=== PATIENT | male | born 1960 | race African-American/Black ===

== ENCOUNTER 2016-04-28 19:38 | Inpatient (IN) | payer MEDICAID ==
[~2016-04-28] VITALS: Ht 177.8 cm; Wt 99.8 kg
[~2016-04-28 19:38] MED LIST: ASPIRIN-LOW81 MG ORAL; BACITRACIN1 APPLIC TOPIC; BENADRYL25 MG ORAL; BISACODYL5 MG ORAL; CALCIUM ACETAT667 M1 PO; CALCIUM ACETAT667 MG PO; CARVEDILOL25 MG ORAL; CEPHALEXIN500 MG ORAL; CLONIDINE 0.2M0.2 MG GT; CLONIDINE HCL0.2 MG PO; FAMOTIDINE20 MG ORAL; GABAPENTIN100 MG ORAL; HEPARIN SO5000 UNIT6 IJ; KEFLEX500 MG ORAL; LOSARTAN POTASS50 MG ORAL; METHADONE HCL5 MG PO; NIFEDIPINE ER60 M2 ORAL; NKM; NON-ASPIRIN PA325 MG PO; NORCO 5-325 TA1 EACH ORAL; RENA-VITE TABL0.8 M1 PO; SERTRALINE HCL25 MG ORAL; SILVER SULFADI400 GM TP; TUMS500 MG ORAL; TYLENOL650 MG/20. ORAL; ZOFRAN4 MG ORAL; ZOLPIDEM TARTRAT5 MG ORAL
[2016-04-28] MEDS ORDERED: Norco 5mg/325mg tab ORAL ONE ×2 (20:15→20:45)
[2016-04-28 20:44] VITALS: BP 134/73
[2016-04-28 20:46] LABS: BASOPHILS % (AUTO) 2.1 % (0.0-2.0); EOSINOPHILS % (AUTO) 2.6 % (0.0-3.0); LYMPHOCYTES % (AUTO) 7.8 % (20.0-45.0); MEAN CORPUSCULAR HEMOGLOBIN 31.3 PG (27.0-31.0); MEAN CORPUSCULAR HGB CONC 31.6 G/DL (32.0-36.0); MEAN CORPUSCULAR VOLUME 99 FL (80-99); MEAN PLATELET VOLUME 5.8 FL (6.5-10.1); MONOCYTES % (AUTO) 14.3 % (1.0-10.0); NEUTROPHILS % (AUTO) 73.1 % (45.0-75.0); PLATELET COUNT 284 K/UL (150-450); RED BLOOD COUNT 3.41 M/UL (4.70-6.10); RED CELL DISTRIBUTION WIDTH 16.5 % (11.6-14.8); WHITE BLOOD COUNT 13.1 K/UL (4.8-10.8)
[2016-04-28] MEDS ORDERED: IBUPROFEN600 MG ORAL (21:00)
[2016-04-28] MEDS ORDERED: HYDROCODON-ACE1 EA13 ORAL (21:01)
[2016-04-28 21:03] LABS: TROPONIN I < 0.30 ng/mL (<=0.30)
[2016-04-28] MEDS ORDERED: ROBITUSSIN COU118 M4 PO (21:03)
[2016-04-28 21:04] LABS: PROTHROMBIN TIME 10.6 SEC (9.30-11.50)
[2016-04-28] MEDS ORDERED: VITAMIN C500 M1 ORAL (21:04)
[2016-04-28] MEDS ORDERED: ZINC50 M1 ORAL (21:05)
[2016-04-28 21:06] LABS: ALBUMIN/GLOBULIN RATIO 1.1 (1.0-2.7); CALCIUM 9.6 mg/dL (8.6-10.2); CREATININE 12.5 mg/dL (0.7-1.2); GLOMERULAR FILTRATION RATE 5.1 mL/min (>60); MAGNESIUM 2.9 mg/dL (1.7-2.5); PHOSPHORUS 6.2 mg/dL (2.5-4.8); POTASSIUM 5.3 mEQ/L (3.4-4.9); TOTAL PROTEIN 8.1 g/dL (6.6-8.7)
[2016-04-28] MEDS ORDERED: Sodium Polystyrene Sulfonate 15gm Powder ORAL ONE (21:30)
[2016-04-28 22:08] VITALS: BP 108/67
[2016-04-28] MEDS ORDERED: Albuterol ud Inhalation HHN ONE (22:45)
[2016-04-28] MEDS ORDERED: cefTRIAXone 1 GM in NS 55 ML IVPB ONE (23:00)
--- NOTE | 2016-04-28 23:04 | Emergency Room Report ---
History of Present Illness General Chief Complaint: Edema Source: Patient, EMS Present Illness HPI Patient is a 55-year-old male presented after increased leg pain and swelling. The patient prior history of end-stage renal disease patient was brought in from long-term. Patient was noted to have increased pain to his legs. Patient had history of chronic pain and had been taking methadone as well as [place] for pain patient had been due for dialysis. Patient denies shortness of breath. The patient is a long-term resident is followed by Dr. ireland Allergies: Coded Allergies: No Known Allergies (Unverified , 08/31/15) Patient History Past Medical History: see triage record Reviewed Nursing Documentation: PMH: Agreed, PSxH: Agreed Nursing Documentation-PMH Hx Cardiac Problems: Yes Hx Hypertension: Yes Hx Cancer: No Hx Gastrointestinal Problems: No Hx Dialysis: Yes - M, W, F Hx Neurological Problems: No Review of Systems All Other Systems: negative except mentioned in HPI Physical Exam Vital Signs Date Time Temp Pulse Resp B/P Pulse Ox O2 Delivery O2 Flow Rate FiO2 04/28/16 19:45 98.1 86 16 118/80 96 Room Air General Appearance: mild distress, obese, Chronically Ill Head: normocephalic Eyes: bilateral eye PERRL ENT: no angioedema, normal voice Neck: full range of motion, supple Respiratory: no respiratory distress, no retraction, rhonchi Cardiovascular #1: no JVD, edema Gastrointestinal: non tender, soft Musculoskeletal: normal inspection, decreased range of motion Neurologic: alert, oriented x3, responsive, motor weakness - bilateral Psychiatric: normal inspection, judgement/insight normal Skin: other - swelling Medical Decision Making Diagnostic Impression: Primary Impression: Hyperkalemia Additional Impression: ESRD (end stage renal disease) on dialysis ER Course Patient presented for extremity pain. Differential diagnosis included but was not limited to fracture, contusion, renal stone, vascular insufficiency, aortic aneurysm, cellulitis.Because of complexity of patient's case laboratory testing and imaging studies were ordered. a chest x-ray one view interpreted by me showed mild cardiomegaly without evident infiltrate. Laboratory testing was notable for elevated potassium as well as elevated white blood count consistent with some infection. Patient was given IV antibiotics. The patient was given Kayexalate. EKG interpreted by showed normal sinus rhythm with a rate of [address] or T wave changes. Dr. Ireland was contacted for inpatient management due to complexity of medical condition. Labs Test 04/28/16 20:30 White Blood Count 13.1 K/UL (4.8-10.8) Red Blood Count 3.41 M/UL (4.70-6.10) Hemoglobin 10.7 G/DL (14.2-18.0) Hematocrit 33.8 % (42.0-52.0) Mean Corpuscular Volume 99 FL (80-99) Mean Corpuscular Hemoglobin 31.3 PG (27.0-31.0) Mean Corpuscular Hemoglobin Concent 31.6 G/DL (32.0-36.0) Red Cell Distribution Width 16.5 % (11.6-14.8) Platelet Count 284 K/UL (150-450) Mean Platelet Volume 5.8 FL (6.5-10.1) Neutrophils (%) (Auto) 73.1 % (45.0-75.0) Lymphocytes (%) (Auto) 7.8 % (20.0-45.0) Monocytes (%) (Auto) 14.3 % (1.0-10.0) Eosinophils (%) (Auto) 2.6 % (0.0-3.0) Basophils (%) (Auto) 2.1 % (0.0-2.0) Prothrombin Time 10.6 SEC (9.30-11.50) Prothromb Time International Ratio 1.0 (0.9-1.1) Activated Partial Thromboplast Time 35 SEC (23-33) Sodium Level 134 mEQ/L (135-145) Potassium Level 5.3 mEQ/L (3.4-4.9) Chloride Level 91 mEQ/L (98-107) Carbon Dioxide Level 21 mEQ/L (20-30) Anion Gap 22 (5-15) Blood Urea Nitrogen 73 mg/dL (7-23) Creatinine 12.5 mg/dL (0.7-1.2) Estimat Glomerular Filtration Rate 5.1 mL/min (>60) Glucose Level 113 mg/dL (74-106) Calcium Level 9.6 mg/dL (8.6-10.2) Phosphorus Level 6.2 mg/dL (2.5-4.8) Magnesium Level 2.9 mg/dL (1.7-2.5) Total Bilirubin 0.3 mg/dL (0.0-1.2) Aspartate Amino Transf (AST/SGOT) 13 U/L (5-40) Alanine Aminotransferase (ALT/SGPT) 7 U/L (3-41) Alkaline Phosphatase 159 U/L (40-129) Troponin I < 0.30 ng/mL (<=0.30) Total Protein 8.1 g/dL (6.6-8.7) Albumin 4.4 g/dL (3.5-5.2) Globulin 3.7 g/dL Albumin/Globulin Ratio 1.1 (1.0-2.7) Last Vital Signs Date Time Temp Pulse Resp B/P Pulse Ox O2 Delivery O2 Flow Rate FiO2 04/28/16 22:08 78 16 108/67 94 Room Air 04/28/16 21:46 98.1 Status: improved Disposition: ADMITTED INPATIENT Condition: Serious Referrals: NOT CHOSEN IPA/,REFERRING (PCP) Rudi Phillips Apr 28, 2016 23:04
[2016-04-28] MEDS ORDERED: LORazepam Inj 2mg/ml 1ml IV PRN (23:15)
[2016-04-28] MEDS ORDERED: Morphine Sulfate 2mg/ml Inj IVP PRN (23:15)
[2016-04-28] MEDS ORDERED: Mylanta II UD 30ml ORAL PRN ×2 (23:15→23:30)
[2016-04-28] MEDS ORDERED: Norco 10mg/325mg tab ORAL PRN (23:15)
[2016-04-28] MEDS ORDERED: cloNIDine 0.2mg Tab GT PRN (23:15)
[2016-04-28] MEDS ORDERED: Miralax 17gm pkt ORAL PRN (23:15)
[2016-04-28] MEDS ORDERED: Zolpidem 5mg tab ORAL PRN (23:15)
[2016-04-29] VITALS (7 sets, daily range): BP systolic 103–134; BP diastolic 57–75
[2016-04-29] MEDS ORDERED: Vancomycin 1gm inj IVPB ONE (02:58)
[2016-04-29] MEDS ORDERED: Vancomycin 1250mg in D5W 275ml IVPB ONE (03:00)
[2016-04-29] MEDS ORDERED: Cefepime HCl 1 GM in D5W 55 ML IV SCH (06:00)
[2016-04-29] MEDS ORDERED: Norco 10mg/325mg tab ORAL PRN (06:59)
[2016-04-29] MEDS ORDERED: Carvedilol 25mg Tab ORAL SCH (09:00)
[2016-04-29] MEDS ORDERED: Losartan 50mg tab ORAL SCH (09:00)
[2016-04-29] MEDS ORDERED: Sertraline 50mg tab ORAL SCH (09:00)
[2016-04-29] MEDS ORDERED: Heparin 5000 units/ml inj SUBQ SCH (09:00)
[2016-04-29 09:20] LABS: BASOPHILS % (AUTO) 1.1 % (0.0-2.0); EOSINOPHILS % (AUTO) 1.4 % (0.0-3.0); LYMPHOCYTES % (AUTO) 4.2 % (20.0-45.0); MEAN CORPUSCULAR HEMOGLOBIN 30.6 PG (27.0-31.0); MEAN CORPUSCULAR HGB CONC 30.9 G/DL (32.0-36.0); MEAN CORPUSCULAR VOLUME 99 FL (80-99); MEAN PLATELET VOLUME 5.2 FL (6.5-10.1); NEUTROPHILS % (AUTO) 83.2 % (45.0-75.0); PLATELET COUNT 257 K/UL (150-450); RED BLOOD COUNT 3.35 M/UL (4.70-6.10); RED CELL DISTRIBUTION WIDTH 16.3 % (11.6-14.8); WHITE BLOOD COUNT 10.1 K/UL (4.8-10.8)
--- NOTE | 2016-04-29 09:21 | Consultation ---
Consult Note Consult Note asked to eval for dialysis HPI Patient is a 55-year-old male presented after increased leg pain and swelling. The patient prior history of end-stage renal disease patient was brought in from group home. Patient was noted to have increased pain to his legs. Patient had history of chronic pain and had been taking methadone as well as [place] for pain patient had been due for dialysis. Patient denies shortness of breath. The patient is a group home resident is followed by Dr. beka Balderas Cardiac Problems: Yes Hx Hypertension: Yes Hx Cancer: No Hx Gastrointestinal Problems: No Hx Dialysis: Yes - M, W, F Patient interviewed and examined- Data reviewed- Right arm fistula- Bilateral massive leg edema- Assessment/Plan staus: ESRD on HD M W Fr HTN High K Bilateral LE edema Plan: HD with UF- Adjustr BP meds- Vascular studies LEs per orders ELSA RICHMOND Apr 29, 2016 09:21
[2016-04-29 09:35] LABS: CALCIUM 9.2 mg/dL (8.6-10.2); CHOLESTEROL/HDL RATIO 3.4 (3.3-4.4); CREATININE 13.1 mg/dL (0.7-1.2); GLOMERULAR FILTRATION RATE 4.8 mL/min (>60); POTASSIUM 5.2 mEQ/L (3.4-4.9); TOTAL PROTEIN 7.3 g/dL (6.6-8.7)
[2016-04-29 09:46] LABS: THYROID STIMULATING HORMONE 2.51 uIU/mL (0.300-4.500)
[2016-04-29 09:58] LABS: CRP QUANT 11.8 mg/dL (< 0.5); MAGNESIUM 2.8 mg/dL (1.7-2.5); PHOSPHORUS 6.8 mg/dL (2.5-4.8); URIC ACID 7.8 mg/dL (3.0-7.5)
[2016-04-29 10:11] LABS: HEMOGLOBIN A1C 5.1 % (< 6.0)
--- NOTE | 2016-04-29 11:51 | Diagnostic Imaging Report ---
Indication: SOB Technique: One view of the chest Comparison: 01/16/2016 Findings: The heart is enlarged. The lungs and pleural spaces are clear. Old healed right rib fracture deformities are again demonstrated. Findings are unchanged Impression: Cardiomegaly. No definite acute process
[2016-04-29] MEDS ORDERED: Cefepime 500mg in D5W 55ml IVPB SCH (12:00)
--- NOTE | 2016-04-29 12:34 | History and Physical ---
History of Present Illness General Date patient seen: Apr 29, 2016 Reason for Hospitalization: Edema Present Illness HPI 55-year-old male with hx of ESRF, half-way resident, presented after increased leg pain and swelling. He had increased pain to his legs. Pt was found to have hyperkalemia, was treated in ER and admitted for further work-up. Allergies: Coded Allergies: No Known Allergies (Unverified , 08/31/15) Medication History Scheduled Ascorbic Acid* (Vitamin C*), 500 MG ORAL DAILY, (Reported) Aspirin (Aspirin EC), 81 MG ORAL DAILY, (Reported) Bisacodyl* (Dulcolax*), 5 MG ORAL BID, (Reported) Calcium Acetate (Calcium Acetate), 1,334 MG PO BID, (Reported) Calcium Acetate (Calcium Acetate), 667 MG PO TID, (Reported) Carvedilol* (Carvedilol*), 25 MG ORAL EVERY 12 HOURS, (Reported) Cephalexin* (Keflex*), 500 MG ORAL EVERY 12 HOURS Clonidine Hcl (Clonidine Hcl), 0.2 MG PO Q4HR, (Reported) Famotidine (Famotidine), 20 MG ORAL BID, (Reported) Gabapentin* (Gabapentin*), 100 MG ORAL DAILY, (Reported) Losartan Potassium* (Losartan Potassium*), 100 MG ORAL DAILY, (Reported) Methadone Hcl* (Methadone*), 5 MG PO DAILY, (Reported) Methadone Hcl* (Methadone*), 5 MG PO BID, (Reported) Nifedipine* (Nifedipine Er*), 90 MG ORAL DAILY, (Reported) No Known Medications* (NKM - No Known Medications*), 0 ., (Reported) Sertraline Hcl* (Sertraline Hcl*), 50 MG ORAL DAILY, (Reported) Zinc (Zinc), 220 MG ORAL DAILY, (Reported) Scheduled PRN Acetaminophen (Acetaminophen), 650 MG ORAL Q6H PRN for Prn Headache/Temp > 101, (Reported) Clonidine HCl (Clonidine HCl), 0.2 MG GT for For High Blood Pressure, (Reported) Diphenhydramine Hcl* (Benadryl*), 50 MG ORAL Q6H PRN for Itching, (Reported) Guaifenesin/Dextromethorphan (Robitussin Cough-Chest Dm Liq), 10 ML PO EVERY 4 HOURS PRN for For Cough, (Reported) Hydrocodone Bit/Acetaminophen 10-325* (Hydrocodon-Acetaminophn 10-325*), 1 TAB ORAL Q6H PRN for Pain Scale (6-10), (Reported) Hydrocodone Bit/Acetaminophen 5-325* ([place] 5-325*), 1 TAB ORAL EVERY 8 HOURS PRN for For Pain, (Reported) Ibuprofen* (Motrin*), 600 MG ORAL Q8H PRN for For Pain, (Reported) Ondansetron (Zofran), 4 MG ORAL Q6HR PRN for Nausea & Vomiting, (Reported) Zolpidem Tartrate* (Zolpidem Tartrate*), 5 MG ORAL BEDTIME PRN for Insomnia, ( Reported) Miscellaneous Medications Acetaminophen (Non-Aspirin Pain Relief), 650 MG PO, (Reported) Silver Sulfadiazine (Silver Sulfadiazine), 400 GM TP, (Reported) Patient History Healthcare decision maker Resuscitation status Full Code Advanced Directive on File Past Medical/Surgical History Past Medical/Surgical History: (1) ESRD (end stage renal disease) on dialysis (2) DVT (deep venous thrombosis) Review of Systems Constitutional: Reports: no symptoms Physical Exam General Appearance: WD/WN Lines, tubes and drains: peripheral HEENT: normocephalic, atraumatic Respiratory/Chest: chest wall non-tender, lungs clear Breasts: no masses Cardiovascular/Chest: normal peripheral pulses Abdomen: normal bowel sounds, non tender Genitourinary/Rectal: normal genital exam Extremities: moderate edema, pitting 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 Lymphatic: anterior cervical, posterior cervical (R) Musculoskeletal: normal muscle bulk Last 24 Hour Vital Signs Date Time Temp Pulse Resp B/P Pulse Ox O2 Delivery O2 Flow Rate FiO2 04/29/16 11:25 96.8 99 20 116/70 91 Room Air 04/29/16 09:23 89 134/75 04/29/16 09:23 134/75 04/29/16 09:22 89 134/75 04/29/16 08:01 96.9 89 20 134/75 92 Room Air 04/29/16 08:00 88 04/29/16 04:40 97.7 88 16 132/67 95 Room Air 04/29/16 04:27 98.1 80 13 122/69 100 Room Air 04/29/16 04:14 98.1 80 13 122/69 100 Room Air 04/29/16 02:17 98.1 76 13 103/66 100 Room Air 04/28/16 23:05 Room Air 04/28/16 23:04 Room Air 04/28/16 23:04 84 16 04/28/16 22:08 78 16 108/67 94 Room Air 04/28/16 21:46 98.1 04/28/16 21:19 98.1 04/28/16 20:44 98.5 86 15 134/73 100 Room Air 04/28/16 19:55 86 16 Room Air 04/28/16 19:45 98.1 86 16 118/80 96 Room Air Intake and Output 04/28/16 04/29/16 19:00 07:00 Intake Total 380 ml Output Total 0 ml Balance 380 ml Intake Oral 50 ml IV Total 330 ml Output Urine Total 0 ml Laboratory Tests Test 04/28/16 20:30 04/29/16 09:15 White Blood Count 13.1 K/UL (4.8-10.8) H 10.1 K/UL (4.8-10.8) Red Blood Count 3.41 M/UL (4.70-6.10) L 3.35 M/UL (4.70-6.10) L Hemoglobin 10.7 G/DL (14.2-18.0) L 10.3 G/DL (14.2-18.0) L Hematocrit 33.8 % (42.0-52.0) L 33.1 % (42.0-52.0) L Mean Corpuscular Volume 99 FL (80-99) 99 FL (80-99) Mean Corpuscular Hemoglobin 31.3 PG (27.0-31.0) H 30.6 PG (27.0-31.0) Mean Corpuscular Hemoglobin Concent 31.6 G/DL (32.0-36.0) L 30.9 G/DL (32.0-36.0) L Red Cell Distribution Width 16.5 % (11.6-14.8) H 16.3 % (11.6-14.8) H Platelet Count 284 K/UL (150-450) 257 K/UL (150-450) Mean Platelet Volume 5.8 FL (6.5-10.1) L 5.2 FL (6.5-10.1) L Neutrophils (%) (Auto) 73.1 % (45.0-75.0) 83.2 % (45.0-75.0) H Lymphocytes (%) (Auto) 7.8 % (20.0-45.0) L 4.2 % (20.0-45.0) L Monocytes (%) (Auto) 14.3 % (1.0-10.0) H 10.0 % (1.0-10.0) Eosinophils (%) (Auto) 2.6 % (0.0-3.0) 1.4 % (0.0-3.0) Basophils (%) (Auto) 2.1 % (0.0-2.0) H 1.1 % (0.0-2.0) Prothrombin Time 10.6 SEC (9.30-11.50) Prothromb Time International Ratio 1.0 (0.9-1.1) Activated Partial Thromboplast Time 35 SEC (23-33) H Sodium Level 134 mEQ/L (135-145) L 133 mEQ/L (135-145) L Potassium Level 5.3 mEQ/L (3.4-4.9) H 5.2 mEQ/L (3.4-4.9) H Chloride Level 91 mEQ/L (98-107) L 90 mEQ/L (98-107) L Carbon Dioxide Level 21 mEQ/L (20-30) 19 mEQ/L (20-30) L Anion Gap 22 (5-15) H 24 (5-15) H Blood Urea Nitrogen 73 mg/dL (7-23) H 78 mg/dL (7-23) H Creatinine 12.5 mg/dL (0.7-1.2) H 13.1 mg/dL (0.7-1.2) H Estimat Glomerular Filtration Rate 5.1 mL/min (>60) 4.8 mL/min (>60) Glucose Level 113 mg/dL (74-106) H 103 mg/dL (74-106) Calcium Level 9.6 mg/dL (8.6-10.2) 9.2 mg/dL (8.6-10.2) Phosphorus Level 6.2 mg/dL (2.5-4.8) H 6.8 mg/dL (2.5-4.8) H Magnesium Level 2.9 mg/dL (1.7-2.5) H 2.8 mg/dL (1.7-2.5) H Total Bilirubin 0.3 mg/dL (0.0-1.2) 0.3 mg/dL (0.0-1.2) Aspartate Amino Transf (AST/SGOT) 13 U/L (5-40) 10 U/L (5-40) Alanine Aminotransferase (ALT/SGPT) 7 U/L (3-41) 6 U/L (3-41) Alkaline Phosphatase 159 U/L (40-129) H 144 U/L (40-129) H Troponin I < 0.30 ng/mL (<=0.30) Total Protein 8.1 g/dL (6.6-8.7) 7.3 g/dL (6.6-8.7) Albumin 4.4 g/dL (3.5-5.2) 3.8 g/dL (3.5-5.2) Globulin 3.7 g/dL 3.5 g/dL Albumin/Globulin Ratio 1.1 (1.0-2.7) 1.0 (1.0-2.7) Hemoglobin A1c 5.1 % (< 6.0) Uric Acid 7.8 mg/dL (3.0-7.5) H Gamma Glutamyl Transpeptidase 36 U/L (8-61) Total Creatine Kinase 108 U/L (38-174) C-Reactive Protein, Quantitative 11.8 mg/dL (< 0.5) H Pro-B-Type Natriuretic Peptide 7514 pg/mL (0-125) H Triglycerides Level 99 mg/dL (< 150) Cholesterol Level 144 mg/dL (< 200) LDL Cholesterol 82 mg/dL (60-99) HDL Cholesterol 42 mg/dL (> 60) Cholesterol/HDL Ratio 3.4 (3.3-4.4) Thyroid Stimulating Hormone (TSH) 2.510 uIU/mL (0.300-4.500) Height (Feet): 5 Height (Inches): 10.00 Weight (Pounds): 220 Medications Current Medications Medications (Trade) Dose Ordered Sig/Hilary Route PRN Reason Start Time Stop Time Status Last Admin Dose Admin Acetaminophen (Tylenol) 650 mg Q4H PRN ORAL fever 04/28/16 23:15 05/28/16 23:14 Acetaminophen/ Hydrocodone Bitart ([place] 10/325) 1 ea Q6H PRN ORAL Moderate Pain (Pain Scale 4-6) 04/29/16 06:59 05/05/16 23:14 Carvedilol (Coreg) 25 mg EVERY 12 HOURS ORAL 04/29/16 09:00 05/29/16 08:59 04/29/16 09:22 Cefepime HCl/ Dextrose (Maxipime/D5W) 55 ml @ 110 mls/hr Q24H IVPB 04/29/16 12:00 05/06/16 11:59 Clonidine HCl (Catapres) 0.1 mg Q4H PRN GT High Blood Pressure SBP> 160 04/29/16 13:15 05/29/16 13:14 Dextrose (Dextrose 50%) STAT PRN IV Hypoglycemia 04/28/16 23:15 05/28/16 23:14 Heparin Sodium (Porcine) (Heparin 5000 units/ml) 5,000 units EVERY 12 HOURS SUBQ 04/29/16 09:00 05/29/16 08:59 04/29/16 09:33 Lorazepam (Ativan 2mg/ml 1ml) 0.5 mg Q4H PRN IV For Anxiety 04/28/16 23:15 05/05/16 23:14 Losartan Potassium (Cozaar) 100 mg DAILY ORAL 04/29/16 09:00 05/29/16 08:59 04/29/16 09:23 Methadone HCl (Methadone HCl) 5 mg BID ORAL 04/29/16 09:00 05/06/16 08:59 04/29/16 09:24 Morphine Sulfate (Morphine Sulfate) 1 mg EVERY 4 HOURS PRN IVP Severe Pain (Pain Scale 7-10) 04/28/16 23:15 05/05/16 23:14 Nifedipine (Procardia XL) 90 mg DAILY ORAL 04/29/16 09:00 05/29/16 08:59 04/29/16 09:23 Ondansetron HCl (Zofran) 4 mg Q6H PRN IVP Nausea & Vomiting 04/28/16 23:15 05/28/16 23:14 Polyethylene Glycol (Miralax) 17 gm HSPRN PRN ORAL Constipation 04/28/16 23:15 05/28/16 23:14 Sertraline HCl (Zoloft) 50 mg DAILY ORAL 04/29/16 09:00 05/29/16 08:59 04/29/16 09:22 Vancomycin HCl 1 ea 1 ea DAILY PRN MISC Per rx protocol 04/28/16 23:15 05/28/16 23:14 Zolpidem Tartrate (Ambien) 5 mg HSPRN PRN ORAL Insomnia 04/28/16 23:15 05/28/16 23:14 Assessment/Plan Problem List: (1) Hyperkalemia ICD Codes: E87.5 - Hyperkalemia; Z99.2 - Dependence on renal dialysis SNOMED: 09984684 (2) Cellulitis ICD Codes: L03.90 - Cellulitis, unspecified SNOMED: 061849842 (3) ESRD (end stage renal disease) on dialysis ICD Codes: N18.6 - End stage renal disease; Z99.2 - Dependence on renal dialysis SNOMED: 282728708 Assessment/Plan Hd check electrolytes wound care IV antibiotics ANGELICA PARSON Apr 29, 2016 12:34
--- NOTE | 2016-04-29 14:00 | Consultation ---
Consult Note Consult Note ID CONSULT: Dict# [id number] Assessment/Plan ASSESSMENT: 55 y/o male with: // BLE weeping cellulitis - WCx pending - a/v doppler: pending // Leukocytosis, mild - resolved, afebrile // ESRD / HD with RUE AVF // Isolated ALP elevation - GGT WNL // Elevated CRP // Chronic pain syndrome, on methadone // h/o MRSA, VRE colonization // NKDA // Full Code PLAN: - continue empiric IV vancomycin, cefepime d# - f/u cultures - monitor CBC, temperatures - monitor BMP - wound care Thanks! Will follow TANYA WALSH Apr 29, 2016 14:00
--- NOTE | 2016-04-29 17:07 | Consultation ---
DATE OF CONSULTATION: 04/29/2016 INFECTIOUS DISEASE CONSULTATION REQUESTING PHYSICIAN: Jeremi Henderson M.D. REASON FOR CONSULTATION: Cellulitis. HISTORY OF PRESENT ILLNESS: This is a 55-year-old male with a history of end-stage renal disease, on dialysis and chronic pain syndrome, admitted on 04/28/2016 with bilateral lower extremity pain and swelling. There is evidence of weeping cellulitis. The wound culture is pending. Associated mild leukocytosis, now resolved and afebrile. Arterial and venous Dopplers are pending. He has been started on empiric vancomycin and cefepime and ID now consulted to assist in management. PAST MEDICAL HISTORY: 1. Hypertension. 2. Depression. 3. End-stage renal disease, on dialysis. 4. Grade 1 diastolic dysfunction. 5. Moderate aortic regurgitation. 6. Mild mitral regurgitation. 7. Mild tricuspid regurgitation. 8. Moderate pulmonary hypertension. 9. Diverticulosis. 10. Kidney stones. 11. Chronic pain syndrome on methadone. PAST SURGICAL HISTORY: Right upper extremity AV fistula. MEDICATIONS: 1. Vancomycin day #1. 2. Cefepime day #1. 3. Coreg. 4. Methadone. 5. Nifedipine. 6. Zoloft. 7. Subcutaneous heparin. ALLERGIES: No known drug allergies. SOCIAL HISTORY: The patient is a resident in a prison. FAMILY HISTORY: Noncontributory. REVIEW OF SYSTEMS: As per history of present illness. Ten systems reviewed. All pertinent positives and negatives noted. PHYSICAL EXAMINATION: GENERAL: No apparent distress. Nontoxic appearing. VITAL SIGNS: Maximum temperature 98.5 degrees, blood pressure 116/70, heart rate in the 80s, respiratory rate 20 and saturating 91% on room air. PULMONARY: Clear to auscultation bilaterally. CARDIOVASCULAR: Regular rate and rhythm. No murmurs. ABDOMEN: Bowel sounds present. Soft, nondistended, and nontender. EXTREMITIES: Bilateral lower extremity edema, erythema and warmth with serosanguineous drainage. NEUROLOGICAL: Alert and oriented x3, nonfocal. LABORATORY AND DIAGNOSTIC DATA: White blood cell count 10.1 decreased from 13.1, hemoglobin 10.3, and platelets 257,000. Sodium 133, potassium 5.2, chloride 98, bicarbonate 19, BUN 78, and creatinine 13.1. Alkaline phosphatase 144. Current CRP of 11.5. Troponin negative x1. Microbiology, on 04/29/2016, wound culture pending. Imaging, 1. On 04/28/2016, chest x-ray no acute findings. 2. On 04/29/2016, arterial and venous Doppler ultrasound pending. ASSESSMENT: 1. Bilateral lower extremity weeping cellulitis. Wound cultures pending. Doppler pending. 2. Leukocytosis, mild, now resolved and afebrile. 3. End-stage renal disease, on dialysis with a right upper extremity arteriovenous fistula. 4. Isolated alkaline phosphatase elevation with normal transaminase. 5. Elevated C-reactive protein. 6. Chronic pain syndrome, on methadone. 7. 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 8. No known drug allergies. 9. Full Code. PLAN: 1. Continue empiric IV vancomycin and cefepime day #1. 2. Follow up cultures. 3. Monitor CBC and temperatures. 4. Monitor BMP. 5. Wound care. Thank you. We will follow. Jerry Latif M.D. DR: QIANA JOB#: [id number] CC: Abel Mesa M.D. Arash Alborzi, M.D
[2016-04-29] MEDS ORDERED: LORazepam Inj 2mg/ml 1ml IV PRN (17:32)
[2016-04-29] MEDS ORDERED: Miralax 17gm pkt ORAL PRN (17:33)
[2016-04-29] MEDS ORDERED: Morphine Sulfate 2mg/ml Inj IVP PRN (17:33)
[2016-04-29] MEDS ORDERED: Zolpidem 5mg tab ORAL PRN (17:34)
[2016-04-29] MEDS: Heparin 5000 units/ml inj SUBQ SCH (21:00)
[2016-04-29] MEDS: Carvedilol 25mg Tab ORAL SCH (21:00)
[2016-04-29] MEDS: Norco 10mg/325mg tab ORAL PRN (22:48)
[2016-04-30] VITALS: BP 105/72
[2016-04-30] MEDS: DiphenhydrAMINE 50mg/ml Inj IVP PRN ×4 (00:07→21:30)
[2016-04-30 04:00] VITALS: BP 112/70
[2016-04-30] MEDS: Carvedilol 25mg Tab ORAL SCH ×2 (08:28→21:31)
[2016-04-30] MEDS: Sertraline 50mg tab ORAL SCH (08:29)
[2016-04-30 08:30] VITALS: BP 136/73
[2016-04-30] MEDS: Norco 10mg/325mg tab ORAL PRN ×3 (08:30→21:30)
[2016-04-30] MEDS: Heparin 5000 units/ml inj SUBQ SCH ×2 (08:36→21:36)
[2016-04-30] MEDS ORDERED: Losartan 50mg tab ORAL SCH (09:00)
[2016-04-30 12:00] VITALS: BP 105/70
--- NOTE | 2016-04-30 12:03 | Wound Care Consultation ---
Wound Assessment Wound Assessment #1: Wound Number: #1 Wound Present on Admission: Yes New Wound: No Status Change of Wound: No Wound Location Body Site Modif: left, lower Wound Location Body Site: leg Wound Type: scab - scattered scabs and tears Eldon Test: Does not Eldon Wound Thickness: Full Thickness Percent of Wound Black/Brown: 100 Wound Drainage Amount: None Wound Drainage Odor: None/Absent Tissue Surrounding Wound: Erythemic Wound General Appearance: Blackened - scabs Wound Assessment #2: Wound Number: #2 Wound Present on Admission: Yes New Wound: No Status Change of Wound: No Wound Location Body Site Modif: right, lower Wound Location Body Site: leg Wound Type: scab - scattered scabs and tears Eldon Test: Does not Eldon Wound Thickness: Full Thickness Wound Drainage Amount: None Wound Drainage Odor: None/Absent Tissue Surrounding Wound: Erythemic Wound General Appearance: Blackened - scabs Wound Assessment #3: Wound Number: #3 Wound Present on Admission: Yes New Wound: No Status Change of Wound: No Wound Location Body Site Modif: left, lower Wound Location Body Site: leg Wound Type: other - 1. open scattered wounds 2.cellulitis Eldon Test: Does not Eldon Wound Thickness: Full Thickness Wound Length: 11.0 Wound Width: 11.0 Wound Depth: 0.3 Percent of Wound [employer]/Red: 50 Percent of Wound Bed Yellow/Wh: 50 Wound Drainage Description: Serosanguineous Wound Drainage Odor: None/Absent Tissue Surrounding Wound: Erythemic Wound General Appearance: Reddened, Bleeding - scant, Draining Wound Assessment #4: Wound Number: #4 Wound Present on Admission: Yes New Wound: No Status Change of Wound: No Wound Location Body Site Modif: right, lower Wound Location Body Site: leg Wound Type: other - 1.Open wound, 2.Cellulitis Eldon Test: Does not Eldon Wound Thickness: Full Thickness Wound Length: 8.0 Wound Width: 8.0 Wound Depth: 0.3 Percent of Wound [employer]/Red: 50 Percent of Wound Bed Yellow/Wh: 50 Wound Drainage Description: Serosanguineous Wound Drainage Amount: Moderate Wound Drainage Odor: None/Absent Tissue Surrounding Wound: Macerated Wound General Appearance: Reddened, Draining Wound Assessment #5: Wound Number: #5 Wound Present on Admission: Yes New Wound: No Status Change of Wound: No Wound Location Body Site Modif: left, right, lower Wound Location Body Site: leg Wound Type: other - dry scaly skin Wound Drainage Amount: None Wound Drainage Odor: None/Absent Tissue Surrounding Wound: dry scaly Wound General Appearance: Open to air Wound Comment #1 Left lower extremity scattered scabs and skin tears. #2 Right lower extremity scattered scabs and skin tears. #3 Left lower extremity scattered open wounds/cellulitis. #4 Right lower medial leg open wound/cellulitis. #5 Left and Right lower extremity dry scaly skin. Recommendation. -Local wound care as ordered. -Turn and reposition. -Keep clean and dry. -Optimize nutrition. -Keep skin moisturized. -Heel protectors if needed. -Assess and notify MD if any changes of condition are noted. NICOLASA CORONADO Apr 30, 2016 12:03
[2016-04-30] MEDS: Cefepime HCl 500 MG in D5W 55 ML IVPB SCH (12:27)
--- NOTE | 2016-04-30 13:48 | General Progress Note ---
Assessment/Plan Status: stable Assessment/Plan Status: ESRD on HD M W Fr HTN High K Bilateral LE edema Plan: HD with UF- in am 28 Adjustr BP meds- Vascular studies LEs per orders Subjective ROS Limited/Unobtainable: No Constitutional: Reports: malaise Allergies: Coded Allergies: No Known Allergies (Unverified , 08/31/15) Objective Last 24 Hour Vital Signs Date Time Temp Pulse Resp B/P Pulse Ox O2 Delivery O2 Flow Rate FiO2 04/30/16 12:19 97.7 04/30/16 12:00 97.7 84 20 105/70 93 Room Air 04/30/16 09:29 97.9 04/30/16 08:30 98.2 110 19 136/73 91 Room Air 04/30/16 08:28 112/70 04/30/16 08:28 110 112/70 04/30/16 08:27 110 112/70 04/30/16 04:00 97.9 110 22 112/70 97 Room Air 04/30/16 00:00 97.8 113 22 105/72 96 Room Air 04/29/16 21:00 96 106/57 04/29/16 20:00 98.4 96 16 106/57 94 Room Air 04/29/16 16:00 99.9 88 21 108/68 95 Room Air 04/29/16 14:22 Room Air Intake and Output 04/29/16 04/30/16 19:00 07:00 Intake Total 400 ml 620 ml Output Total 6200 ml Balance -5800 ml 620 ml Intake Oral 400 ml 620 ml Output Urine Total 0 ml Hemodialysis UF 6200 ml # Bowel Movements 2 1 Laboratory Tests 04/29/16 20:00: Random Vancomycin Level 19.7 Height (Feet): 5 Height (Inches): 10.00 Weight (Pounds): 220 General Appearance: no apparent distress Respiratory/Chest: decreased breath sounds Abdomen: soft Objective other PE not changed ELSA RICHMOND Apr 30, 2016 13:48
--- NOTE | 2016-04-30 15:23 | Pulmonology Progress Note ---
Assessment/Plan Problems: (1) Hyperkalemia (2) Cellulitis (3) ESRD (end stage renal disease) on dialysis Assessment/Plan Iv antibiotics wound care check cultures f/u by renal venous doppler of legs. Subjective ROS Limited/Unobtainable: No Interval Events: c/o swelling of legs (chronic) Allergies: Coded Allergies: No Known Allergies (Unverified , 08/31/15) Objective Last 24 Hour Vital Signs Date Time Temp Pulse Resp B/P Pulse Ox O2 Delivery O2 Flow Rate FiO2 04/30/16 12:19 97.7 04/30/16 12:00 97.7 84 20 105/70 93 Room Air 04/30/16 09:29 97.9 04/30/16 08:30 98.2 110 19 136/73 91 Room Air 04/30/16 08:28 112/70 04/30/16 08:28 110 112/70 04/30/16 08:27 110 112/70 04/30/16 04:00 97.9 110 22 112/70 97 Room Air 04/30/16 00:00 97.8 113 22 105/72 96 Room Air 04/29/16 21:00 96 106/57 04/29/16 20:00 98.4 96 16 106/57 94 Room Air 04/29/16 16:00 99.9 88 21 108/68 95 Room Air Intake and Output 04/29/16 04/30/16 19:00 07:00 Intake Total 400 ml 620 ml Output Total 6200 ml Balance -5800 ml 620 ml Intake Oral 400 ml 620 ml Output Urine Total 0 ml Hemodialysis UF 6200 ml # Bowel Movements 2 1 General Appearance: WD/WN HEENT: normocephalic, atraumatic Respiratory/Chest: chest wall non-tender, lungs clear Cardiovascular: normal peripheral pulses, normal rate Abdomen: normal bowel sounds, soft, non tender Genitourinary: normal external genitalia Extremities: no cyanosis Neurologic/Psychiatric: hr manager II-XII grossly normal Microbiology Date/Time Source Procedure Growth Status 04/29/16 05:00 Wound Gram Stain - Final Resulted 04/29/16 05:00 Wound Wound Culture Pending Resulted Laboratory Tests 04/29/16 20:00: Random Vancomycin Level 19.7 Current Medications Medications (Trade) Dose Ordered Sig/Hilary Route PRN Reason Start Time Stop Time Status Last Admin Dose Admin Acetaminophen (Tylenol) 650 mg Q4H PRN ORAL fever 04/29/16 17:31 05/29/16 17:30 Acetaminophen/ Hydrocodone Bitart ([place] 10/325) 1 ea Q6H PRN ORAL Moderate Pain (Pain Scale 4-6) 04/29/16 17:32 05/06/16 17:31 04/30/16 14:36 Carvedilol (Coreg) 25 mg EVERY 12 HOURS ORAL 04/29/16 21:00 05/29/16 20:59 04/30/16 08:28 Cefepime HCl/ Dextrose (Maxipime/D5W) 55 ml @ 110 mls/hr Q24H IVPB 04/30/16 12:00 05/07/16 11:59 04/30/16 12:27 Clonidine HCl (Catapres) 0.1 mg Q4H PRN GT High Blood Pressure SBP> 160 04/29/16 17:15 05/29/16 17:14 Dextrose (Dextrose 50%) STAT PRN IV Hypoglycemia 04/29/16 17:32 05/29/16 17:31 Diphenhydramine HCl (Benadryl) 50 mg Q6H PRN IVP Itching 04/29/16 20:45 05/29/16 20:44 04/30/16 14:36 Heparin Sodium (Porcine) (Heparin 5000 units/ml) 5,000 units EVERY 12 HOURS SUBQ 04/29/16 21:00 05/29/16 20:59 04/30/16 08:36 Lorazepam (Ativan 2mg/ml 1ml) 0.5 mg Q4H PRN IV For Anxiety 04/29/16 17:32 05/06/16 17:31 Losartan Potassium (Cozaar) 50 mg DAILY ORAL 05/01/16 09:00 05/31/16 08:59 Methadone HCl (Methadone HCl) 5 mg BID ORAL 04/29/16 18:00 05/06/16 17:59 04/30/16 08:29 Morphine Sulfate (Morphine Sulfate) 1 mg Q4H PRN IVP Severe Pain (Pain Scale 7-10) 04/29/16 17:33 05/06/16 17:32 04/30/16 11:49 Nifedipine (Procardia XL) 30 mg DAILY ORAL 05/01/16 09:00 05/31/16 08:59 Ondansetron HCl (Zofran) 4 mg Q6H PRN IVP Nausea & Vomiting 04/29/16 17:33 05/29/16 17:32 Polyethylene Glycol (Miralax) 17 gm HSPRN PRN ORAL Constipation 04/29/16 17:33 05/29/16 17:32 Sertraline HCl (Zoloft) 50 mg DAILY ORAL 04/30/16 09:00 05/30/16 08:59 04/30/16 08:29 Vancomycin HCl (Vanco rx to dose) 1 ea DAILY PRN MISC Per rx protocol 04/29/16 17:34 05/29/16 17:33 Vitamin A/Vitamin D (A & D Oint) 1 applic EVERY 12 HOURS TOPIC 04/30/16 21:00 05/30/16 20:59 Zolpidem Tartrate (Ambien) 5 mg HSPRN PRN ORAL Insomnia 04/29/16 17:34 05/29/16 17:33 ANGELICA PARSON Apr 30, 2016 15:23
[2016-04-30 16:00] VITALS: BP 119/75
--- NOTE | 2016-04-30 17:55 | Infectious Diseases Prog Note ---
Assessment/Plan Assessment/Plan ASSESSMENT: 55 y/o male with: // BLE weeping cellulitis - WCx pending, GS GNR - a/v doppler: pending // Leukocytosis, mild - resolved, afebrile // ESRD / HD with RUE AVF // Isolated ALP elevation - GGT WNL // Elevated CRP // Chronic pain syndrome, on methadone // h/o MRSA, VRE colonization // NKDA // Full Code PLAN: - continue empiric IV vancomycin, cefepime d# 2 - f/u cultures - f/u dopplers - monitor CBC, temperatures - monitor BMP - wound care Subjective Allergies: Coded Allergies: No Known Allergies (Unverified , 08/31/15) Subjective remains afebrile Objective Vital Signs Last 24 Hour Vital Signs Date Time Temp Pulse Resp B/P Pulse Ox O2 Delivery O2 Flow Rate FiO2 04/30/16 16:00 97.9 77 20 119/75 94 Room Air 04/30/16 15:35 97.7 04/30/16 12:19 97.7 04/30/16 12:00 97.7 84 20 105/70 93 Room Air 04/30/16 08:30 98.2 110 19 136/73 91 Room Air 04/30/16 08:28 112/70 04/30/16 08:28 110 112/70 04/30/16 08:27 110 112/70 04/30/16 04:00 97.9 110 22 112/70 97 Room Air 04/30/16 00:00 97.8 113 22 105/72 96 Room Air 04/29/16 21:00 96 106/57 04/29/16 20:00 98.4 96 16 106/57 94 Room Air Height (Feet): 5 Height (Inches): 10.00 Weight (Pounds): 220 General Appearance: no acute distress Respiratory/Chest: normal breath sounds Cardiovascular: normal rate, regular rhythm Abdomen: normal bowel sounds, soft, non tender, non distended Microbiology Date/Time Source Procedure Growth Status 04/29/16 05:00 Wound Gram Stain - Final Resulted 04/29/16 05:00 Wound Wound Culture Pending Resulted Laboratory Tests Test 04/29/16 20:00 Random Vancomycin Level 19.7 ug/mL Current Medications Medications (Trade) Dose Ordered Sig/Hilary Route PRN Reason Start Time Stop Time Status Last Admin Dose Admin Acetaminophen (Tylenol) 650 mg Q4H PRN ORAL fever 04/29/16 17:31 05/29/16 17:30 Acetaminophen/ Hydrocodone Bitart ([place] 10/325) 1 ea Q6H PRN ORAL Moderate Pain (Pain Scale 4-6) 04/29/16 17:32 05/06/16 17:31 04/30/16 14:36 Carvedilol (Coreg) 25 mg EVERY 12 HOURS ORAL 04/29/16 21:00 05/29/16 20:59 04/30/16 08:28 Cefepime HCl/ Dextrose (Maxipime/D5W) 55 ml @ 110 mls/hr Q24H IVPB 04/30/16 12:00 05/07/16 11:59 04/30/16 12:27 Clonidine HCl (Catapres) 0.1 mg Q4H PRN GT High Blood Pressure SBP> 160 04/29/16 17:15 05/29/16 17:14 Dextrose (Dextrose 50%) STAT PRN IV Hypoglycemia 04/29/16 17:32 05/29/16 17:31 Diphenhydramine HCl (Benadryl) 50 mg Q6H PRN IVP Itching 04/29/16 20:45 05/29/16 20:44 04/30/16 14:36 Heparin Sodium (Porcine) (Heparin 5000 units/ml) 5,000 units EVERY 12 HOURS SUBQ 04/29/16 21:00 05/29/16 20:59 04/30/16 08:36 Lorazepam (Ativan 2mg/ml 1ml) 0.5 mg Q4H PRN IV For Anxiety 04/29/16 17:32 05/06/16 17:31 Losartan Potassium (Cozaar) 50 mg DAILY ORAL 05/01/16 09:00 05/31/16 08:59 Methadone HCl (Methadone HCl) 5 mg BID ORAL 04/29/16 18:00 05/06/16 17:59 04/30/16 08:29 Morphine Sulfate (Morphine Sulfate) 1 mg Q4H PRN IVP Severe Pain (Pain Scale 7-10) 04/29/16 17:33 05/06/16 17:32 04/30/16 11:49 Nifedipine (Procardia XL) 30 mg DAILY ORAL 05/01/16 09:00 05/31/16 08:59 Ondansetron HCl (Zofran) 4 mg Q6H PRN IVP Nausea & Vomiting 04/29/16 17:33 05/29/16 17:32 Polyethylene Glycol (Miralax) 17 gm HSPRN PRN ORAL Constipation 04/29/16 17:33 05/29/16 17:32 Sertraline HCl (Zoloft) 50 mg DAILY ORAL 04/30/16 09:00 05/30/16 08:59 04/30/16 08:29 Vancomycin HCl (Vanco rx to dose) 1 ea DAILY PRN MISC Per rx protocol 04/29/16 17:34 05/29/16 17:33 Vitamin A/Vitamin D (A & D Oint) 1 applic EVERY 12 HOURS TOPIC 04/30/16 21:00 05/30/16 20:59 Zolpidem Tartrate (Ambien) 5 mg HSPRN PRN ORAL Insomnia 04/29/16 17:34 05/29/16 17:33 TANYA WALSH Apr 30, 2016 17:55
[2016-04-30 20:00] VITALS: BP 128/79
--- NOTE | 2016-04-30 20:22 | Cardiology Report ---
APPROVED REPORT EKG Measurement Heart [id number] Normal sinus rhythm Possible Left atrial enlargement Possible Anterior infarct, age undetermined Abnormal ECG
[2016-04-30] MEDS: Vitamin A&D Oint 2oz Tube TOPIC SCH (21:31)
[2016-05-01] VITALS (8 sets, daily range): BP systolic 108–141; BP diastolic 53–91
[2016-05-01 07:45] LABS: MEAN CORPUSCULAR HEMOGLOBIN 32.6 PG (27.0-31.0); MEAN CORPUSCULAR HGB CONC 33.5 G/DL (32.0-36.0); MEAN CORPUSCULAR VOLUME 97 FL (80-99); MEAN PLATELET VOLUME 5.7 FL (6.5-10.1); PLATELET COUNT 262 K/UL (150-450); RED BLOOD COUNT 3.05 M/UL (4.70-6.10); RED CELL DISTRIBUTION WIDTH 15.9 % (11.6-14.8); WHITE BLOOD COUNT 8.4 K/UL (4.8-10.8)
[2016-05-01 08:11] LABS: ALBUMIN/GLOBULIN RATIO 0.9 (1.0-2.7); CALCIUM 9.7 mg/dL (8.6-10.2); CREATININE 14.1 mg/dL (0.7-1.2); GLOMERULAR FILTRATION RATE 4.5 mL/min (>60); MAGNESIUM 2.9 mg/dL (1.7-2.5); PHOSPHORUS 8.6 mg/dL (2.5-4.8); POTASSIUM 4.8 mEQ/L (3.4-4.9); TOTAL PROTEIN 7.7 g/dL (6.6-8.7); URIC ACID 7.7 mg/dL (3.0-7.5)
[2016-05-01] MEDS: Carvedilol 25mg Tab ORAL SCH (09:00)
[2016-05-01] MEDS ORDERED: Losartan 50mg tab ORAL SCH (09:00)
[2016-05-01] MEDS: Sertraline 50mg tab ORAL SCH (10:17)
[2016-05-01] MEDS: Heparin 5000 units/ml inj SUBQ SCH (10:17)
[2016-05-01] MEDS: Vitamin A&D Oint 2oz Tube TOPIC SCH (10:18)
[2016-05-01] MEDS: DiphenhydrAMINE 50mg/ml Inj IVP PRN ×2 (10:26→17:42)
[2016-05-01 10:28] LABS: ANISOCYTOSIS 1+; BAND NEUTROPHILS % (MANUAL) 0 % (0-8); BASOPHILS % (MANUAL) 0 % (0-2); EOSINOPHILS % (MANUAL) 4 % (0-3); HYPOCHROMASIA 1+; LYMPHOCYTES % (MANUAL) 10 % (20-45); NEUTROPHILS % (MANUAL) 74 % (45-75); PLATELET ESTIMATE ADEQUATE; PLATELET MORPHOLOGY NORMAL; TOTAL CELLS COUNTED 100
--- NOTE | 2016-05-01 10:45 | General Progress Note ---
Assessment/Plan Status: stable Assessment/Plan Status: ESRD on HD M W Fr HTN High K Bilateral LE edema Plan: HD 05/01 done- next 05/03 Adjustr BP meds- start Phos binders Vascular studies LEs per orders Subjective ROS Limited/Unobtainable: No Constitutional: Reports: malaise Allergies: Coded Allergies: No Known Allergies (Unverified , 08/31/15) Objective Last 24 Hour Vital Signs Date Time Temp Pulse Resp B/P Pulse Ox O2 Delivery O2 Flow Rate FiO2 05/01/16 09:05 Room Air 05/01/16 09:04 97.0 88 20 124/78 96 Room Air 05/01/16 08:27 97.7 85 20 137/75 99 Room Air 05/01/16 05:00 97.7 85 20 137/75 100 Room Air 05/01/16 05:00 Room Air 05/01/16 04:00 97.8 82 19 108/70 96 Room Air 05/01/16 00:00 97.9 80 21 110/53 95 Room Air 04/30/16 22:29 98.8 04/30/16 21:31 81 128/79 04/30/16 20:00 98.8 81 22 128/79 93 Room Air 04/30/16 16:00 97.9 77 20 119/75 94 Room Air 04/30/16 12:19 97.7 04/30/16 12:00 97.7 84 20 105/70 93 Room Air Intake and Output 04/30/16 05/01/16 19:00 07:00 Intake Total 415 ml 705 ml Balance 415 ml 705 ml Intake Oral 360 ml 705 ml IV Total 55 ml # Voids 1 # Bowel Movements 1 Laboratory Tests 05/01/16 05:30: White Blood Count 8.4, Red Blood Count 3.05L, Hemoglobin 10.0L, Hematocrit 29.8L , Mean Corpuscular Volume 97, Mean Corpuscular Hemoglobin 32.6H, Mean Corpuscular Hemoglobin Concent 33.5, Red Cell Distribution Width 15.9H, Platelet Count 262, Mean Platelet Volume 5.7L, Neutrophils (%) (Auto) , Lymphocytes (%) (Auto) , Monocytes (%) (Auto) , Eosinophils (%) (Auto) , Basophils (%) (Auto) , Differential Total Cells Counted 100, Neutrophils % ( Manual) 74, Lymphocytes % (Manual) 10L, Monocytes % (Manual) 12H, Eosinophils % (Manual) 4H, Basophils % (Manual) 0, Band Neutrophils 0, Platelet Estimate Adequate, Platelet Morphology Normal, Hypochromasia 1+, Anisocytosis 1+, Sodium Level 133L, Potassium Level 4.8, Chloride Level 87L, Carbon Dioxide Level 18L, Anion Gap 28H, Blood Urea Nitrogen 83H, Creatinine 14.1H, Estimat Glomerular Filtration Rate 4.5, Glucose Level 88, Uric Acid 7.7H, Calcium Level 9.7, Phosphorus Level 8.6H, Magnesium Level 2.9H, Total Bilirubin 0.3, Gamma Glutamyl Transpeptidase 40, Aspartate Amino Transf (AST/SGOT) 16, Alanine Aminotransferase (ALT/SGPT) 9, Alkaline Phosphatase 143H, C-Reactive Protein, Quantitative 12.0H, Pro-B-Type Natriuretic Peptide 9845H, Total Protein 7.7, Albumin 3.8, Globulin 3.9, Albumin/Globulin Ratio 0.9L Height (Feet): 5 Height (Inches): 10.00 Weight (Pounds): 220 General Appearance: no apparent distress Respiratory/Chest: decreased breath sounds Abdomen: distended Objective other PE not changed ELSA RICHMOND May 01, 2016 10:45
[2016-05-01] MEDS ORDERED: Tubing IV Secondary IV ONE ×2 (11:11→20:19)
[2016-05-01] MEDS ORDERED: NS 550ML IV ONE (11:11)
[2016-05-01] MEDS: Cefepime HCl 500 MG in D5W 55 ML IVPB SCH (12:59)
[2016-05-01] MEDS: Renvela 2400 mg pkt NG SCH ×2 (12:59→16:39)
--- NOTE | 2016-05-01 16:12 | Diagnostic Imaging Report ---
APPROVED REPORT CPT Code: 43527 Present Symptoms Lower Extremity Edema: Bilateral BILATERAL: Imaging reveals a patent deep venous system bilaterally. There is no evidence of thrombus within the femoral, or popliteal veins. The greater saphenous veins are also within normal limits. Doppler indicates normal spontaneous flow within these segments. The tibial segments were not well visualized, due to market edema. There is no evidence of acute deep vein thrombosis.
--- NOTE | 2016-05-01 17:03 | Infectious Diseases Prog Note ---
Assessment/Plan Assessment/Plan ASSESSMENT: 55 y/o male with: // BLE weeping cellulitis - WCx pending, GS GNR - doppler(-) DVT // Leukocytosis, mild - resolved, afebrile // ESRD / HD with RUE AVF // Isolated ALP elevation - GGT WNL // Elevated CRP // Chronic pain syndrome, on methadone // h/o MRSA, VRE colonization // NKDA // Full Code PLAN: - ok to DC on IV vancomycin, cefepime d# - f/u cultures - monitor CBC, temperatures - monitor BMP - wound care d/w disease case manager Subjective Allergies: Coded Allergies: No Known Allergies (Unverified , 08/31/15) Subjective remains afebrile for possible DC Objective Vital Signs Last 24 Hour Vital Signs Date Time Temp Pulse Resp B/P Pulse Ox O2 Delivery O2 Flow Rate FiO2 05/01/16 16:00 98.4 88 18 141/91 98 Room Air 05/01/16 12:11 98.2 95 20 122/80 99 Room Air 05/01/16 09:05 Room Air 05/01/16 09:04 97.0 88 20 124/78 96 Room Air 05/01/16 08:27 97.7 85 20 137/75 99 Room Air 05/01/16 05:00 97.7 85 20 137/75 100 Room Air 05/01/16 05:00 Room Air 05/01/16 04:00 97.8 82 19 108/70 96 Room Air 05/01/16 00:00 97.9 80 21 110/53 95 Room Air 04/30/16 22:29 98.8 04/30/16 21:31 81 128/79 04/30/16 20:00 98.8 81 22 128/79 93 Room Air Height (Feet): 5 Height (Inches): 10.00 Weight (Pounds): 220 General Appearance: no acute distress Respiratory/Chest: no respiratory distress Cardiovascular: normal rate, regular rhythm Abdomen: normal bowel sounds, soft, non tender, non distended Microbiology Date/Time Source Procedure Growth Status 04/29/16 05:00 Wound Gram Stain - Final Resulted 04/29/16 05:00 Wound Culture - Preliminary Gram Negative Bacillus 1 Resulted Laboratory Tests Test 05/01/16 05:30 White Blood Count 8.4 K/UL (4.8-10.8) Red Blood Count 3.05 M/UL (4.70-6.10) L Hemoglobin 10.0 G/DL (14.2-18.0) L Hematocrit 29.8 % (42.0-52.0) L Mean Corpuscular Volume 97 FL (80-99) Mean Corpuscular Hemoglobin 32.6 PG (27.0-31.0) H Mean Corpuscular Hemoglobin Concent 33.5 G/DL (32.0-36.0) Red Cell Distribution Width 15.9 % (11.6-14.8) H Platelet Count 262 K/UL (150-450) Mean Platelet Volume 5.7 FL (6.5-10.1) L Neutrophils (%) (Auto) % (45.0-75.0) Lymphocytes (%) (Auto) % (20.0-45.0) Monocytes (%) (Auto) % (1.0-10.0) Eosinophils (%) (Auto) % (0.0-3.0) Basophils (%) (Auto) % (0.0-2.0) Differential Total Cells Counted 100 Neutrophils % (Manual) 74 % (45-75) Lymphocytes % (Manual) 10 % (20-45) L Monocytes % (Manual) 12 % (1-10) H Eosinophils % (Manual) 4 % (0-3) H Basophils % (Manual) 0 % (0-2) Band Neutrophils 0 % (0-8) Platelet Estimate Adequate Platelet Morphology Normal Hypochromasia 1+ Anisocytosis 1+ Sodium Level 133 mEQ/L (135-145) L Potassium Level 4.8 mEQ/L (3.4-4.9) Chloride Level 87 mEQ/L (98-107) L Carbon Dioxide Level 18 mEQ/L (20-30) L Anion Gap 28 (5-15) H Blood Urea Nitrogen 83 mg/dL (7-23) H Creatinine 14.1 mg/dL (0.7-1.2) H Estimat Glomerular Filtration Rate 4.5 mL/min (>60) Glucose Level 88 mg/dL (74-106) Uric Acid 7.7 mg/dL (3.0-7.5) H Calcium Level 9.7 mg/dL (8.6-10.2) Phosphorus Level 8.6 mg/dL (2.5-4.8) H Magnesium Level 2.9 mg/dL (1.7-2.5) H Total Bilirubin 0.3 mg/dL (0.0-1.2) Gamma Glutamyl Transpeptidase 40 U/L (8-61) Aspartate Amino Transf (AST/SGOT) 16 U/L (5-40) Alanine Aminotransferase (ALT/SGPT) 9 U/L (3-41) Alkaline Phosphatase 143 U/L (40-129) H C-Reactive Protein, Quantitative 12.0 mg/dL (< 0.5) H Pro-B-Type Natriuretic Peptide 9845 pg/mL (0-125) H Total Protein 7.7 g/dL (6.6-8.7) Albumin 3.8 g/dL (3.5-5.2) Globulin 3.9 g/dL Albumin/Globulin Ratio 0.9 (1.0-2.7) L Current Medications Medications (Trade) Dose Ordered Sig/Hilary Route PRN Reason Start Time Stop Time Status Last Admin Dose Admin Acetaminophen (Tylenol) 650 mg Q4H PRN ORAL fever 04/29/16 17:31 05/29/16 17:30 Acetaminophen/ Hydrocodone Bitart ([place] 10/325) 1 ea Q6H PRN ORAL Moderate Pain (Pain Scale 4-6) 04/29/16 17:32 05/06/16 17:31 04/30/16 21:30 Carvedilol (Coreg) 25 mg EVERY 12 HOURS ORAL 04/29/16 21:00 05/29/16 20:59 04/30/16 21:31 Cefepime HCl/ Dextrose (Maxipime/D5W) 55 ml @ 110 mls/hr Q24H IVPB 04/30/16 12:00 05/07/16 11:59 05/01/16 12:59 Clonidine HCl (Catapres) 0.1 mg Q4H PRN GT High Blood Pressure SBP> 160 04/29/16 17:15 05/29/16 17:14 Dextrose (Dextrose 50%) STAT PRN IV Hypoglycemia 04/29/16 17:32 05/29/16 17:31 Diphenhydramine HCl (Benadryl) 50 mg Q6H PRN IVP Itching 04/29/16 20:45 05/29/16 20:44 05/01/16 10:26 Heparin Sodium (Porcine) (Heparin 5000 units/ml) 5,000 units EVERY 12 HOURS SUBQ 04/29/16 21:00 05/29/16 20:59 05/01/16 10:17 Lorazepam (Ativan 2mg/ml 1ml) 0.5 mg Q4H PRN IV For Anxiety 04/29/16 17:32 05/06/16 17:31 Losartan Potassium (Cozaar) 50 mg DAILY ORAL 05/01/16 09:00 05/31/16 08:59 Methadone HCl (Methadone HCl) 5 mg BID ORAL 04/29/16 18:00 05/06/16 17:59 05/01/16 10:17 Morphine Sulfate (Morphine Sulfate) 1 mg Q4H PRN IVP Severe Pain (Pain Scale 7-10) 04/29/16 17:33 05/06/16 17:32 04/30/16 11:49 Nifedipine (Procardia XL) 30 mg DAILY ORAL 05/01/16 09:00 05/31/16 08:59 Ondansetron HCl (Zofran) 4 mg Q6H PRN IVP Nausea & Vomiting 04/29/16 17:33 05/29/16 17:32 Polyethylene Glycol (Miralax) 17 gm HSPRN PRN ORAL Constipation 04/29/16 17:33 05/29/16 17:32 Sertraline HCl (Zoloft) 50 mg DAILY ORAL 04/30/16 09:00 05/30/16 08:59 05/01/16 10:17 Sevelamer Carbonate (Renvela) 2,400 mg TIAC NG 05/01/16 11:30 05/31/16 11:29 05/01/16 16:39 Vancomycin HCl (Vanco rx to dose) 1 ea DAILY PRN MISC Per rx protocol 04/29/16 17:34 05/29/16 17:33 Vitamin A/Vitamin D (A & D Oint) 1 applic EVERY 12 HOURS TOPIC 04/30/16 21:00 05/30/16 20:59 05/01/16 10:18 Zolpidem Tartrate (Ambien) 5 mg HSPRN PRN ORAL Insomnia 04/29/16 17:34 05/29/16 17:33 TANYA WALSH May 01, 2016 17:03
[2016-05-01] MEDS ORDERED: CATAPRES0.1 MG ORAL (17:07)
[2016-05-01] MEDS ORDERED: ACETAMINOPHEN80 MG ORAL (17:07)
[2016-05-01] MEDS ORDERED: DIPHENHYDR50 MG/1 M1 IVP (17:09)
[2016-05-01] MEDS ORDERED: DIPHENHYDRAMINE25 M1 ORAL (17:09)
[2016-05-01] MEDS ORDERED: LOSARTAN POTASS50 MG ORAL (17:09)
[2016-05-01] MEDS ORDERED: HEPARIN SO5000 UNIT2 SUBQ (17:09)
[2016-05-01] MEDS ORDERED: LORAZEPAM2 MG/1 M1 IV (17:09)
[2016-05-01] MEDS ORDERED: MORPHINE SU4 MG/1 ML IVP (17:10)
[2016-05-01] MEDS ORDERED: PROCARDIA10 MG ORAL (17:10)
[2016-05-01] MEDS ORDERED: MIRALAX17 G2 ORAL (17:11)
[2016-05-01] MEDS ORDERED: ZOFRAN8 MG IVP (17:11)
[2016-05-01] MEDS ORDERED: RENVELA2.4 GM ORAL (17:12)
[2016-05-01] MEDS ORDERED: CEFEPIME-D1 GM/50 ML IVPB (17:13)
[2016-05-01] MEDS ORDERED: VITAMIN A AND1 EACH TOPIC (17:13)
[2016-05-01] MEDS ORDERED: VANCOMYCIN1 GM/2502 IVPB (17:14)
--- NOTE | 2016-05-01 17:25 | Pulmonology Progress Note ---
Assessment/Plan Problems: (1) Hyperkalemia (2) Cellulitis (3) ESRD (end stage renal disease) on dialysis Assessment/Plan improving change to oral abx doppler of legs negative wound care check cultures f/u by renal venous doppler of legs. Subjective ROS Limited/Unobtainable: No Constitutional: Reports: no symptoms HEENT: Repors: no symptoms Allergies: Coded Allergies: No Known Allergies (Unverified , 08/31/15) Objective Last 24 Hour Vital Signs Date Time Temp Pulse Resp B/P Pulse Ox O2 Delivery O2 Flow Rate FiO2 05/01/16 16:00 98.4 88 18 141/91 98 Room Air 05/01/16 12:11 98.2 95 20 122/80 99 Room Air 05/01/16 09:05 Room Air 05/01/16 09:04 97.0 88 20 124/78 96 Room Air 05/01/16 08:27 97.7 85 20 137/75 99 Room Air 05/01/16 05:00 97.7 85 20 137/75 100 Room Air 05/01/16 05:00 Room Air 05/01/16 04:00 97.8 82 19 108/70 96 Room Air 05/01/16 00:00 97.9 80 21 110/53 95 Room Air 04/30/16 22:29 98.8 04/30/16 21:31 81 128/79 04/30/16 20:00 98.8 81 22 128/79 93 Room Air Intake and Output 04/30/16 05/01/16 19:00 07:00 Intake Total 415 ml 705 ml Balance 415 ml 705 ml Intake Oral 360 ml 705 ml IV Total 55 ml # Voids 1 # Bowel Movements 1 General Appearance: WD/WN HEENT: normocephalic Respiratory/Chest: chest wall non-tender, lungs clear Cardiovascular: normal peripheral pulses, normal rate Abdomen: normal bowel sounds, no organomegaly Extremities: no cyanosis Skin: no rash Microbiology Date/Time Source Procedure Growth Status 04/29/16 05:00 Wound Gram Stain - Final Resulted 04/29/16 05:00 Wound Culture - Preliminary Gram Negative Bacillus 1 Resulted Laboratory Tests 05/01/16 05:30: White Blood Count 8.4, Red Blood Count 3.05L, Hemoglobin 10.0L, Hematocrit 29.8L , Mean Corpuscular Volume 97, Mean Corpuscular Hemoglobin 32.6H, Mean Corpuscular Hemoglobin Concent 33.5, Red Cell Distribution Width 15.9H, Platelet Count 262, Mean Platelet Volume 5.7L, Neutrophils (%) (Auto) , Lymphocytes (%) (Auto) , Monocytes (%) (Auto) , Eosinophils (%) (Auto) , Basophils (%) (Auto) , Differential Total Cells Counted 100, Neutrophils % ( Manual) 74, Lymphocytes % (Manual) 10L, Monocytes % (Manual) 12H, Eosinophils % (Manual) 4H, Basophils % (Manual) 0, Band Neutrophils 0, Platelet Estimate Adequate, Platelet Morphology Normal, Hypochromasia 1+, Anisocytosis 1+, Sodium Level 133L, Potassium Level 4.8, Chloride Level 87L, Carbon Dioxide Level 18L, Anion Gap 28H, Blood Urea Nitrogen 83H, Creatinine 14.1H, Estimat Glomerular Filtration Rate 4.5, Glucose Level 88, Uric Acid 7.7H, Calcium Level 9.7, Phosphorus Level 8.6H, Magnesium Level 2.9H, Total Bilirubin 0.3, Gamma Glutamyl Transpeptidase 40, Aspartate Amino Transf (AST/SGOT) 16, Alanine Aminotransferase (ALT/SGPT) 9, Alkaline Phosphatase 143H, C-Reactive Protein, Quantitative 12.0H, Pro-B-Type Natriuretic Peptide 9845H, Total Protein 7.7, Albumin 3.8, Globulin 3.9, Albumin/Globulin Ratio 0.9L Current Medications Medications (Trade) Dose Ordered Sig/Hilary Route PRN Reason Start Time Stop Time Status Last Admin Dose Admin Acetaminophen (Tylenol) 650 mg Q4H PRN ORAL fever 04/29/16 17:31 05/29/16 17:30 Acetaminophen/ Hydrocodone Bitart ([place] 10/325) 1 ea Q6H PRN ORAL Moderate Pain (Pain Scale 4-6) 04/29/16 17:32 05/06/16 17:31 04/30/16 21:30 Carvedilol (Coreg) 25 mg EVERY 12 HOURS ORAL 04/29/16 21:00 05/29/16 20:59 04/30/16 21:31 Cefepime HCl/ Dextrose (Maxipime/D5W) 55 ml @ 110 mls/hr Q24H IVPB 04/30/16 12:00 05/07/16 11:59 05/01/16 12:59 Clonidine HCl (Catapres) 0.1 mg Q4H PRN GT High Blood Pressure SBP> 160 04/29/16 17:15 05/29/16 17:14 Dextrose (Dextrose 50%) STAT PRN IV Hypoglycemia 04/29/16 17:32 05/29/16 17:31 Diphenhydramine HCl (Benadryl) 50 mg Q6H PRN IVP Itching 04/29/16 20:45 05/29/16 20:44 05/01/16 10:26 Heparin Sodium (Porcine) (Heparin 5000 units/ml) 5,000 units EVERY 12 HOURS SUBQ 04/29/16 21:00 05/29/16 20:59 05/01/16 10:17 Lorazepam (Ativan 2mg/ml 1ml) 0.5 mg Q4H PRN IV For Anxiety 04/29/16 17:32 05/06/16 17:31 Losartan Potassium (Cozaar) 50 mg DAILY ORAL 05/01/16 09:00 05/31/16 08:59 Methadone HCl (Methadone HCl) 5 mg BID ORAL 04/29/16 18:00 05/06/16 17:59 05/01/16 10:17 Morphine Sulfate (Morphine Sulfate) 1 mg Q4H PRN IVP Severe Pain (Pain Scale 7-10) 04/29/16 17:33 05/06/16 17:32 04/30/16 11:49 Nifedipine (Procardia XL) 30 mg DAILY ORAL 05/01/16 09:00 05/31/16 08:59 Ondansetron HCl (Zofran) 4 mg Q6H PRN IVP Nausea & Vomiting 04/29/16 17:33 05/29/16 17:32 Polyethylene Glycol (Miralax) 17 gm HSPRN PRN ORAL Constipation 04/29/16 17:33 05/29/16 17:32 Sertraline HCl (Zoloft) 50 mg DAILY ORAL 04/30/16 09:00 05/30/16 08:59 05/01/16 10:17 Sevelamer Carbonate (Renvela) 2,400 mg TIAC NG 05/01/16 11:30 05/31/16 11:29 05/01/16 16:39 Vancomycin HCl (Vanco rx to dose) 1 ea DAILY PRN MISC Per rx protocol 2/6/17 17:34 05/29/16 17:33 Vitamin A/Vitamin D (A & D Oint) 1 applic EVERY 12 HOURS TOPIC 04/30/16 21:00 05/30/16 20:59 05/01/16 10:18 Zolpidem Tartrate (Ambien) 5 mg HSPRN PRN ORAL Insomnia 04/29/16 17:34 05/29/16 17:33 ANGELICA PARSON May 01, 2016 17:25
[2016-05-01] MEDS ORDERED: NS 275ml ONE (20:19)
--- NOTE | 2016-05-03 01:28 | Discharge Summary 2 SIG ---
DATE OF ADMISSION: 04/28/2016 DATE OF DISCHARGE: 05/01/2016 CONSULTANTS: 1. Jerry Latif M.D. 2. Larry Thomas M.D. BRIEF HOSPITAL COURSE: The patient is a 55-year-old male with history of end-stage renal failure and [facility] resident, presented to ED complaining of increased leg pain and swelling. On evaluation, he was found to have hyperkalemia and cellulitis. He was admitted for IV antibiotic and wound care. Dr. Latif was consulted. The patient has evidence of weeping cellulitis associated with mild leukocytosis. Venous duplex of lower extremity was negative for DVT. He was given IV vancomycin and cefepime. Wound culture showed growth of gram-negative rods. Dr. Thomas was consulted. The patient has history of end-stage renal disease, on hemodialysis and AV graft on the right upper extremity. He also had hyperkalemia and elevated phosphorus. Phosphate binders were started. Blood pressure medications were also titrated. He was discharged to [facility] to continue IV vancomycin for seven days and IV cefepime 500 mg for seven days. FINAL DIAGNOSES: 1. Cellulitis of both lower extremities. 2. End-stage renal disease, on hemodialysis. 3. Hyperkalemia. 4. Isolated alkaline phosphatase elevation. 5. Chronic pain syndrome on methadone. 6. Hyperphosphatemia . 7. Hypertension. Jeremi Henderson M.D. I have been assigned to dictate discharge summary on this account and I was not involved in the patient's management. Lynn Garcia N.P. DR: Crsi JOB#: [id number] CC: SANDY
== END 2016-05-01 20:20 | DRG 383 ==
LOC: EDBD 19:38 → EDUNIT# 19:38 → EMR 21:39 → 2E 22:26 → EDBEDREQ 04-29 04:07 → 4W 04-29 16:53
PROC: 5A1D60Z (ICD-10-PCS; principal; 2016-04-29)
DX: L03.115 Cellulitis of right lower limb (principal); I12.0 Hypertensive chronic kidney disease with stage 5 chronic kidney disease or end stage renal disease; I27.2 Other secondary pulmonary hypertension; N18.6 End stage renal disease; E83.39 Other disorders of phosphorus metabolism; E87.5 Hyperkalemia; L03.116 Cellulitis of left lower limb; Z99.2 Dependence on renal dialysis; Z86.718 Personal history of other venous thrombosis and embolism; D72.829 Elevated white blood cell count, unspecified; G89.4 Chronic pain syndrome; Z79.891 Long term (current) use of opiate analgesic; I35.1 Nonrheumatic aortic (valve) insufficiency
CPT/HCPCS: 36415; 71010; 80053; 80061; 80202; 82550; 82977; 83036; 83735; 83880; 84100; 84443; 84484; 84550; 85007; 85025; 85610; 85730; 86140; 87070; 87081; 87181; 87205; 93005; 93970; 94664

== ENCOUNTER 2016-08-14 14:25 | Inpatient (IN) | payer MEDICAID ==
[~2016-08-14] VITALS: Ht 177.8 cm; Wt 81.6 kg
[~2016-08-14 14:25] MED LIST changes: +ACETAMINOPHEN80 MG ORAL; +CATAPRES0.1 MG ORAL; +CEFEPIME-D1 GM/50 ML IVPB; +DIPHENHYDR50 MG/1 M1 IVP; +DIPHENHYDRAMINE25 M1 ORAL; +HEPARIN SO5000 UNIT2 SUBQ; +HYDROCODON-ACE1 EA13 ORAL; +IBUPROFEN600 MG ORAL; +LORAZEPAM2 MG/1 M1 IV; +MIRALAX17 G2 ORAL; +MORPHINE SU4 MG/1 ML IVP; +PROCARDIA10 MG ORAL; +RENVELA2.4 GM ORAL; +ROBITUSSIN COU118 M4 PO; +VANCOMYCIN1 GM/2502 IVPB; +VITAMIN A AND1 EACH TOPIC; +VITAMIN C500 M1 ORAL; +ZINC50 M1 ORAL; +ZOFRAN8 MG IVP
[2016-08-14] MEDS ORDERED: fentaNYL 100 mcg/2 mL IV ONE (14:30)
[2016-08-14] MEDS ORDERED: Vancomycin 1.5 GM in D5W 325 ML IVPB STA (14:39)
[2016-08-14] MEDS ORDERED: LR 1000ml 1,000 ML IV STA (14:39)
--- NOTE | 2016-08-14 14:39 | Emergency Room Report ---
History of Present Illness General Chief Complaint: Lower Extremity Injury Source: Patient, Medical Record Present Illness HPI 56YOM sent by Dr Henderson for "necrosis" of right lower extremity wound. patient c/o worsening pain to right lower extremity "last couple of days." States it "turned black" 2 days ago. Denies fever/chills. C/o 10/10 "excruciating pain" to entire leg. Less pain when sitting in wheelchair, tangling leg vs keeping leg elevated. Recent admission April 2016 for bilateral weeping cellulitis lower extremities Wound Cx was polymicrobial Bilateral lower extremity sono was negative for DVT History of MRSA Tx with Vanc and Cef and followed by ID Allergies: Coded Allergies: No Known Allergies (Unverified , 08/31/15) Patient History Past Medical History: renal disease Past Surgical History: unable to obtain - See EMR Pertinent Family History: none Social History: Denies: alcohol use, drug use, smoking Immunizations: UTD Reviewed Nursing Documentation: PMH: Agreed, PSxH: Agreed Nursing Documentation-PMH Past Medical History: No History, Except For Hx Hypertension: Yes Hx Cancer: No Hx Gastrointestinal Problems: Yes - GERD Hx Dialysis: Yes - MWF ESRD Hx Neurological Problems: No Review of Systems All Other Systems: negative except mentioned in HPI Physical Exam Vital Signs Date Time Temp Pulse Resp B/P Pulse Ox O2 Delivery O2 Flow Rate FiO2 08/14/16 14:19 98.4 93 18 87/52 100 Room Air Sp02 EP Interpretation: reviewed, abnormal General Appearance: normal inspection, well appearing, no apparent distress, alert, GCS 15, non-toxic, other - Writhing in stretcher, yelling in pain. Holding leg Head: normocephalic, atraumatic Eyes: bilateral eye EOMI, bilateral eye PERRL ENT: normal ENT inspection, hearing grossly normal, normal voice Neck: normal inspection, full range of motion, supple, no bony tend Respiratory: normal inspection, lungs clear, normal breath sounds, no respiratory distress, no retraction, no accessory muscle use, no wheezing Cardiovascular #1: regular rate, rhythm, no edema Gastrointestinal: normal inspection, normal bowel sounds, non tender, soft, no guarding, no hernia Rectal: other Musculoskeletal: other - Right lower extremity: from knee down swollen, hardened skin. Hairless. Chronic venous stasis dermatitis. On lower right anterior and medial aspect of jackson there are 2 open wounds. Anterior 3cm irregular shaped ulcer with bleeding on the edge. No pus drainage. Lateral is second 4cm irregular shaped wound with necrotic edge. Entire leg is warm, very painful to touch. No palpable crepitus Neurologic: normal inspection, alert, responsive, speech normal Psychiatric: normal inspection, judgement/insight normal, mood/affect normal Skin: normal inspection Medical Decision Making Diagnostic Impression: Primary Impression: Leg pain Qualified Codes: M79.604 - Pain in right leg Additional Impressions: Methadone dependence Venous stasis dermatitis of both lower extremities Venous ulcer of right leg Necrotic eschar ER Course Right leg ulcers Necrotic to posterior ulcer Spoke with Dr Reed in radiology - xray only shows ulcers, no evidence of gas gangrene No crepitus one exam - unlikely gas gangrene or nec fasc Lower extremity DVT r/o on recent admission No leuks. Afebrile. Empiric Abx given Blood Cx pending Endorsed to Dr Pro for med/surg admission 325pm EKG Diagnostic Results Rate: normal Rhythm: NSR ST Segments: no acute changes ASA given to the pt in ED: No Rhythm Strip Diag. Results EP Interpretation: yes Rate: 83 Rhythm: NSR, no PVC's, no ectopy Last Vital Signs Date Time Temp Pulse Resp B/P Pulse Ox O2 Delivery O2 Flow Rate FiO2 08/14/16 14:19 98.4 93 18 87/52 100 Room Air Status: improved Disposition: ELOPED Condition: Serious ALVAREZ RIVERO M.D. August 14, 2016 14:39
[2016-08-14] MEDS ORDERED: Vancomycin 1gm inj IVPB ONE (14:45)
[2016-08-14] MEDS ORDERED: Cefepime 2gm ONE (14:45)
[2016-08-14] MEDS ORDERED: Cefepime HCl 2 GM in D5W 110 ML IVPB ONE (14:45)
[2016-08-14] MEDS ORDERED: Vancomycin 1.5gm/D5W 300ml 300 ML IVPB ONE (15:00)
[2016-08-14 15:02] LABS: BASOPHILS % (AUTO) 1.1 % (0.0-2.0); EOSINOPHILS % (AUTO) 1.5 % (0.0-3.0); LYMPHOCYTES % (AUTO) 13.4 % (20.0-45.0); MEAN CORPUSCULAR HEMOGLOBIN 28.3 PG (27.0-31.0); MEAN CORPUSCULAR VOLUME 91 FL (80-99); MEAN PLATELET VOLUME 5.6 FL (6.5-10.1); MONOCYTES % (AUTO) 16.4 % (1.0-10.0); NEUTROPHILS % (AUTO) 67.6 % (45.0-75.0); PLATELET COUNT 285 K/UL (150-450); RED BLOOD COUNT 3.38 M/UL (4.70-6.10); RED CELL DISTRIBUTION WIDTH 15.9 % (11.6-14.8); WHITE BLOOD COUNT 9.7 K/UL (4.8-10.8)
[2016-08-14] MEDS ORDERED: HYDROXYZINE HCL50 M1 PO (15:28)
[2016-08-14] MEDS ORDERED: SENSIPAR30 MG ORAL (15:28)
[2016-08-14] MEDS ORDERED: ARTIFICIAL TEAR15 ML BOTH EYES (15:28)
[2016-08-14] MEDS ORDERED: PRO-STAT LIQUID30 ML ORAL (15:28)
[2016-08-14] MEDS ORDERED: DiphenhydrAMINE 50mg/ml Inj IVP ONE (15:30)
[2016-08-14] MEDS ORDERED: DiphenhydrAMINE & Zinc 28g Cream TOPIC ONE (15:30)
[2016-08-14] MEDS ORDERED: DuoNeb 0.5-3(2.5)mg/3ml neb HHN PRN (15:45)
[2016-08-14] MEDS ORDERED: Miralax 17gm pkt ORAL PRN (15:45)
[2016-08-14] MEDS ORDERED: Morphine Sulfate 2mg/ml Inj IVP PRN (15:45)
[2016-08-14] MEDS ORDERED: cloNIDine 0.2mg Tab GT PRN (15:45)
--- NOTE | 2016-08-14 15:59 | Diagnostic Imaging Report ---
Indication: Pain Comparison: None Findings: Two views of the right tibia and fibula were obtained. Lucencies noted along the anterolateral the posterior medial aspects of the lower leg consistent with ulcers. Vascular calcifications are present. The bones appear osteopenic. Impression: Cellulitis with areas of ulceration.
[2016-08-14] MEDS ORDERED: Nitroglycerin Subl 0.4mg tab (Bottle Of 25) SL PRN (16:15)
[2016-08-14 17:35] LABS: ALBUMIN/GLOBULIN RATIO 0.8 (1.0-2.7); CALCIUM 9.9 mg/dL (8.6-10.2); CREATININE 5.7 mg/dL (0.7-1.2); GLOMERULAR FILTRATION RATE 12.6 mL/min (>60); POTASSIUM 4.9 mEQ/L (3.4-4.9)
[2016-08-14] MEDS ORDERED: Norco 10mg/325mg tab ORAL PRN ×2 (18:00→19:06)
[2016-08-14] MEDS ORDERED: Morphine Sulfate 4mg/ml Inj IVP PRN (19:00)
[2016-08-14 21:00] VITALS: BP 103/62
[2016-08-14] MEDS ORDERED: Cefepime HCl 2 GM in D5W 110 ML IV SCH (21:00)
[2016-08-14] MEDS ORDERED: NovoLOG Insulin Flexpen SUBQ SCH (21:00)
[2016-08-14] MEDS: Carvedilol 25mg Tab ORAL SCH (22:12)
[2016-08-14] MEDS: Morphine Sulfate 4mg/ml Inj IVP PRN (22:13)
[2016-08-14] MEDS: Heparin 5000 units/ml inj SUBQ SCH (22:14)
--- NOTE | 2016-08-14 23:54 | History and Physical ---
History of Present Illness General Date patient seen: August 14, 2016 Reason for Hospitalization: Lower Extremity Injury Present Illness HPI 56 year old male with hxo of ESRF and deep wound of right lower extremity wound , long-term resident brought in because of worsening pain to right lower extremity "last couple of days." and worsening of the wound Allergies: Coded Allergies: No Known Allergies (Unverified , 08/31/15) Medication History Scheduled Amino Acids/Protein Hydrolys (Pro-Stat Liquid), 30 ML ORAL DAILY, (Reported) Ascorbic Acid* (Vitamin C*), 500 MG ORAL DAILY, (Reported) Aspirin (Aspirin EC), 81 MG ORAL DAILY, (Reported) Bisacodyl* (Dulcolax*), 5 MG ORAL BID, (Reported) Calcium Acetate (Calcium Acetate), 1,334 MG PO BID, (Reported) Calcium Acetate (Calcium Acetate), 667 MG PO TID, (Reported) Carvedilol* (Carvedilol*), 25 MG ORAL EVERY 12 HOURS, (Reported) Cefepime Hcl/D5w (Cefepime-Dextrose 1 Gm/50 Ml), 500 MG IVPB Q24H, (Reported) Cephalexin* (Keflex*), 500 MG ORAL EVERY 12 HOURS Cinacalcet* (Sensipar*), 30 MG ORAL DAILY, (Reported) Clonidine Hcl (Clonidine Hcl), 0.2 MG PO Q4HR, (Reported) Dextran 70/Hypromellose (Artificial Tears Eye Drops*), 1 DROP BOTH EYES BID, ( Reported) Famotidine (Famotidine), 20 MG ORAL BID, (Reported) Gabapentin* (Gabapentin*), 100 MG ORAL DAILY, (Reported) Heparin Sod (Porcine) (Heparin Sodium*), 5,000 UNITS SUBQ EVERY 12 HOURS, ( Reported) Hydroxyzine Hcl (Hydroxyzine Hcl), 50 MG PO EVERY 6 HOURS, (Reported) Losartan Potassium* (Losartan Potassium*), 100 MG ORAL DAILY, (Reported) Losartan Potassium* (Losartan Potassium*), 50 MG ORAL DAILY, (Reported) Methadone Hcl* (Methadone*), 5 MG PO DAILY, (Reported) Methadone Hcl* (Methadone*), 5 MG PO BID, (Reported) Nifedipine* (Nifedipine Er*), 90 MG ORAL DAILY, (Reported) Nifedipine* (Procardia*), 30 MG ORAL DAILY, (Reported) No Known Medications* (NKM - No Known Medications*), 0 ., (Reported) Sertraline Hcl* (Sertraline Hcl*), 50 MG ORAL DAILY, (Reported) Sevelamer Carbonate* (Renvela*), 2,400 MG ORAL THREE TIMES A DAY, (Reported) Vancomycin Hcl/D5w (Vancomycin-D5w 1 G/250 Ml), 0 IVPB pharmacy to dose, ( Reported) Vitamins A And D (Vitamin A And D), 1 APPLIC TOPIC EVERY 12 HOURS, (Reported) Zinc (Zinc), 220 MG ORAL DAILY, (Reported) Scheduled PRN Acetaminophen (Acetaminophen), 650 MG ORAL Q6H PRN for Prn Headache/Temp > 101, (Reported) Acetaminophen (Acetaminophen), 650 MG ORAL Q4H PRN for Fever/Headache/Mild Pain, (Reported) Clonidine HCl (Clonidine HCl), 0.2 MG GT for For High Blood Pressure, (Reported) Clonidine Hcl* (Catapres*), 0.1 MG ORAL EVERY 4 HOURS PRN for For High Blood Pressure, (Reported) Diphenhydramine Hcl (Diphenhydramine Hcl), 50 MG IVP Q6HR PRN for Itching, ( Reported) Diphenhydramine Hcl* (Benadryl*), 50 MG ORAL Q6H PRN for Itching, (Reported) Diphenhydramine Hcl* (Diphenhydramine Hcl*), 25 MG ORAL Q6H PRN for Itching, ( Reported) Guaifenesin/Dextromethorphan (Robitussin Cough-Chest Dm Liq), 10 ML PO EVERY 4 HOURS PRN for For Cough, (Reported) Hydrocodone Bit/Acetaminophen 10-325* (Hydrocodon-Acetaminophn 10-325*), 1 TAB ORAL Q6H PRN for Pain Scale (6-10), (Reported) Hydrocodone Bit/Acetaminophen 5-325* ([place] 5-325*), 1 TAB ORAL EVERY 8 HOURS PRN for For Pain, (Reported) Ibuprofen* (Motrin*), 600 MG ORAL Q8H PRN for For Pain, (Reported) Lorazepam* (Lorazepam*), 0.5 MG IV Q4H PRN for For Anxiety, (Reported) Morphine Sulfate (Morphine Sulfate), 1 MG IVP EVERY 4 HOURS PRN for Severe Pain (Pain Scale 7-10), (Reported) Ondansetron (Zofran), 4 MG ORAL Q6HR PRN for Nausea & Vomiting, (Reported) Ondansetron Hcl* (Zofran*), 4 MG IVP Q6H PRN for Nausea & Vomiting, (Reported) Polyethylene Glycol 3350* (Miralax*), 17 GM ORAL HS PRN for prn, (Reported) Zolpidem Tartrate* (Zolpidem Tartrate*), 5 MG ORAL BEDTIME PRN for Insomnia, ( Reported) Miscellaneous Medications Acetaminophen (Non-Aspirin Pain Relief), 650 MG PO, (Reported) Silver Sulfadiazine (Silver Sulfadiazine), 400 GM TP, (Reported) Patient History Healthcare decision maker N Resuscitation status Full Code Advanced Directive on File Past Medical/Surgical History Past Medical/Surgical History: (1) Necrotic eschar (2) Venous stasis dermatitis of both lower extremities (3) Methadone dependence (4) ESRD (end stage renal disease) on dialysis (5) Cellulitis Review of Systems All Other Systems: negative except mentioned in HPI Physical Exam General Appearance: WD/WN Lines, tubes and drains: peripheral HEENT: normocephalic, atraumatic Neck: non-tender, normal alignment, supple Respiratory/Chest: chest wall non-tender, lungs clear Breasts: no masses Cardiovascular/Chest: normal peripheral pulses Last 24 Hour Vital Signs Date Time Temp Pulse Resp B/P Pulse Ox O2 Delivery O2 Flow Rate FiO2 08/14/16 22:43 97.6 08/14/16 22:12 83 125/82 08/14/16 21:00 97.6 73 18 103/62 98 Room Air 08/14/16 16:47 98.4 83 18 119/64 100 Room Air 08/14/16 15:26 98.4 08/14/16 14:19 98.4 93 18 87/52 100 Room Air Laboratory Tests Test 08/14/16 14:45 White Blood Count 9.7 K/UL (4.8-10.8) Red Blood Count 3.38 M/UL (4.70-6.10) L Hemoglobin 9.6 G/DL (14.2-18.0) L Hematocrit 30.9 % (42.0-52.0) L Mean Corpuscular Volume 91 FL (80-99) Mean Corpuscular Hemoglobin 28.3 PG (27.0-31.0) Mean Corpuscular Hemoglobin Concent 31.0 G/DL (32.0-36.0) L Red Cell Distribution Width 15.9 % (11.6-14.8) H Platelet Count 285 K/UL (150-450) Mean Platelet Volume 5.6 FL (6.5-10.1) L Neutrophils (%) (Auto) 67.6 % (45.0-75.0) Lymphocytes (%) (Auto) 13.4 % (20.0-45.0) L Monocytes (%) (Auto) 16.4 % (1.0-10.0) H Eosinophils (%) (Auto) 1.5 % (0.0-3.0) Basophils (%) (Auto) 1.1 % (0.0-2.0) Sodium Level 134 mEQ/L (135-145) L Potassium Level 4.9 mEQ/L (3.4-4.9) Chloride Level 86 mEQ/L (98-107) L Carbon Dioxide Level 25 mEQ/L (20-30) Anion Gap 23 (5-15) H Blood Urea Nitrogen 40 mg/dL (7-23) H Creatinine 5.7 mg/dL (0.7-1.2) H Estimat Glomerular Filtration Rate 12.6 mL/min (>60) Glucose Level 102 mg/dL (74-106) Calcium Level 9.9 mg/dL (8.6-10.2) Total Bilirubin 0.3 mg/dL (0.0-1.2) Aspartate Amino Transf (AST/SGOT) 20 U/L (5-40) Alanine Aminotransferase (ALT/SGPT) 12 U/L (3-41) Alkaline Phosphatase 106 U/L (40-129) Total Creatine Kinase 102 U/L (38-174) C-Reactive Protein, Quantitative 14.0 mg/dL (< 0.5) H Total Protein 9.0 g/dL (6.6-8.7) H Albumin 4.0 g/dL (3.5-5.2) Globulin 5.0 g/dL Albumin/Globulin Ratio 0.8 (1.0-2.7) L Height (Feet): 5 Height (Inches): 10.00 Weight (Pounds): 180 Medications Current Medications Medications (Trade) Dose Ordered Sig/Hilary Route PRN Reason Start Time Stop Time Status Last Admin Dose Admin Acetaminophen (Tylenol) 650 mg Q4H PRN ORAL T>100.5 08/14/16 15:45 09/13/16 15:44 Acetaminophen/ Hydrocodone Bitart ([place] 10/325) 1 ea Q6H PRN ORAL Moderate Pain (Pain Scale 4-6) 08/14/16 19:06 08/21/16 19:05 Albuterol/ Ipratropium (DuoNeb 0.5-3(2.5)mg/3ml) 3 ml Q4H PRN HHN Shortness of Breath 08/14/16 15:45 08/19/16 15:44 Carvedilol (Coreg) 25 mg EVERY 12 HOURS ORAL 08/14/16 21:00 09/13/16 20:59 08/14/16 22:12 Cefepime HCl/ Dextrose (Maxipime/D5W) 55 ml @ 110 mls/hr Q24H IVPB 08/15/16 20:00 08/22/16 19:59 Cinacalcet (Sensipar) 30 mg DAILY ORAL 08/15/16 09:00 09/14/16 08:59 Clonidine HCl (Catapres) 0.2 mg Q6H PRN GT SBP > 160 08/14/16 15:45 09/13/16 15:44 Dextrose (Dextrose 50%) STAT PRN IV Hypoglycemia 08/14/16 15:45 09/13/16 15:44 Gabapentin (Neurontin) 100 mg DAILY ORAL 08/15/16 09:00 09/14/16 08:59 Heparin Sodium (Porcine) (Heparin 5000 units/ml) 5,000 units EVERY 12 HOURS SUBQ 08/14/16 21:00 09/13/16 20:59 08/14/16 22:14 Ibuprofen (Motrin) 600 mg Q8H PRN ORAL Mild Pain (Pain Scale 1-3) 08/14/16 16:05 09/13/16 15:44 Losartan Potassium (Cozaar) 50 mg DAILY ORAL 08/15/16 09:00 09/14/16 08:59 Methadone HCl (Methadone HCl) 5 mg BID ORAL 08/14/16 20:00 08/21/16 19:59 08/14/16 20:36 Morphine Sulfate (Morphine Sulfate) 4 mg Q4H PRN IVP Severe Pain (Pain Scale 7-10) 08/14/16 19:07 08/21/16 19:06 08/14/16 22:13 Nifedipine (Procardia XL) 30 mg DAILY ORAL 08/15/16 09:00 09/14/16 08:59 Nitroglycerin (Ntg) 0.4 mg Q5MIN X 3 DOSES PRN SL Prn Chest Pain 08/14/16 16:15 09/13/16 16:14 Ondansetron HCl (Zofran) 4 mg Q6H PRN IVP Nausea & Vomiting 08/14/16 15:45 09/13/16 15:44 Polyethylene Glycol (Miralax) 17 gm DAILYPRN PRN ORAL Constipation 08/14/16 15:45 09/13/16 15:44 Temazepam (Restoril) 15 mg HSPRN PRN ORAL Insomnia 08/14/16 21:00 08/21/16 20:59 08/14/16 22:12 Vancomycin HCl 1 ea 1 ea DAILY PRN MISC . 08/14/16 17:30 09/13/16 17:29 Assessment/Plan Problem List: (1) Cellulitis ICD Codes: L03.90 - Cellulitis, unspecified SNOMED: 541509806 (2) ESRD (end stage renal disease) on dialysis ICD Codes: N18.6 - End stage renal disease; Z99.2 - Dependence on renal dialysis SNOMED: 509948020 (3) Necrotic eschar ICD Codes: L98.8 - Other specified disorders of the skin and subcutaneous tissue SNOMED: 440054421 (4) Venous stasis dermatitis of both lower extremities ICD Codes: I87.2 - Venous insufficiency (chronic) (peripheral) SNOMED: 79509164 (5) Methadone dependence ICD Codes: F11.20 - Opioid dependence, uncomplicated SNOMED: 950557919 Assessment/Plan wound care IV antibiotics Nephrology for HD KAURCHOCO MATIASFARIBA August 14, 2016 23:54
[2016-08-15] MEDS ORDERED: Vancomycin 1 GM in D5W 275 ML IV SCH (00:30)
[2016-08-15] MEDS: Morphine Sulfate 4mg/ml Inj IVP PRN ×3 (02:17→15:32)
[2016-08-15 04:00] VITALS: BP 122/44
[2016-08-15 06:57] LABS: BASOPHILS % (AUTO) 2.1 % (0.0-2.0); EOSINOPHILS % (AUTO) 1.2 % (0.0-3.0); LYMPHOCYTES % (AUTO) 4.5 % (20.0-45.0); MEAN CORPUSCULAR HEMOGLOBIN 28.4 PG (27.0-31.0); MEAN CORPUSCULAR HGB CONC 31.4 G/DL (32.0-36.0); MEAN CORPUSCULAR VOLUME 91 FL (80-99); MEAN PLATELET VOLUME 5.3 FL (6.5-10.1); MONOCYTES % (AUTO) 14.2 % (1.0-10.0); PLATELET COUNT 266 K/UL (150-450); RED BLOOD COUNT 3.11 M/UL (4.70-6.10); WHITE BLOOD COUNT 11.5 K/UL (4.8-10.8)
[2016-08-15 07:18] LABS: ALBUMIN/GLOBULIN RATIO 0.7 (1.0-2.7); CALCIUM 9.8 mg/dL (8.6-10.2); CREATININE 7.8 mg/dL (0.7-1.2); GLOMERULAR FILTRATION RATE 8.7 mL/min (>60); POTASSIUM 4.9 mEQ/L (3.4-4.9)
[2016-08-15 09:14] VITALS: BP 127/85
[2016-08-15] MEDS: Carvedilol 25mg Tab ORAL SCH ×2 (09:21→21:50)
[2016-08-15] MEDS: Losartan 50mg tab ORAL SCH (09:22)
[2016-08-15] MEDS: Sensipar 30mg Tab ORAL SCH (09:23)
[2016-08-15] MEDS: Heparin 5000 units/ml inj SUBQ SCH ×2 (09:25→21:58)
--- NOTE | 2016-08-15 11:33 | Consultation ---
Consult Note Consult Note HPI 56YOM sent by Dr Henderson for "necrosis" of right lower extremity wound. patient c/o worsening pain to right lower extremity "last couple of days." States it "turned black" 2 days ago. Denies fever/chills. C/o 10/10 "excruciating pain" to entire leg. Less pain when sitting in wheelchair, tangling leg vs keeping leg elevated. Recent admission April 2016 for bilateral weeping cellulitis lower extremities Wound Cx was polymicrobial Bilateral lower extremity sono was negative for DVT History of MRSA Tx with Vanc and Cef and followed by ID Hx Cardiac Problems: Yes Hx Hypertension: Yes Hx Cancer: No Hx Gastrointestinal Problems: No Hx Dialysis: Yes - M, W, F Patient interviewed and examined- Data reviewed- Right arm fistula- Bilateral massive leg edema- Assessment/Plan staus: ESRD on HD M W Fr HTN Anemia Bilateral LE edema Methadone dependence Venous stasis dermatitis of both lower extremities Venous ulcer of right leg Necrotic eschar Plan: HD with UF in am Adjustr BP meds- Vascular studies LEs, wound care per orders ELSA RICHMOND August 15, 2016 11:33
--- NOTE | 2016-08-15 11:35 | Diagnostic Imaging Report ---
APPROVED REPORT CPT Code: 94818 Present Symptoms Lower Extremity Pain: Bilateral BILATERAL: Imaging reveals a patent deep venous system bilaterally. There is no evidence of thrombus within the femoral, popliteal or tibial segments. The greater saphenous veins are also within normal limits. Doppler indicates normal spontaneous flow within these segments.
[2016-08-15 12:10] VITALS: BP 93/97
--- NOTE | 2016-08-15 12:52 | Consultation ---
Consult Note Assessment/Plan ID Dic# [id number] ASSESSMENT: 55 y/o male with: // no evid of wound infection and cellulitis - doppler(-) DVT // Leukocytosis, mild , afebrile // ESRD / HD with RUE AVF // Isolated ALP elevation - GGT WNL // Elevated CRP // Chronic pain syndrome, on methadone // h/o MRSA, VRE colonization // NKDA // Full Code PLAN: - DC on IV vancomycin, cefepime and monitor pt off of AB Rx - monitor CBC, temperatures - monitor BMP - wound care KHOA ADAME M.D. August 15, 2016 12:52
[2016-08-15] MEDS ORDERED: cloNIDine 0.2mg Tab GT PRN (13:45)
[2016-08-15 15:08] VITALS: BP 109/67
--- NOTE | 2016-08-15 15:55 | Wound Care Consultation ---
Wound Assessment Wound Assessment #1: Wound Present on Admission: Yes New Wound: No Status Change of Wound: No Wound Location Body Site Modif: right, lower Wound Location Body Site: leg Wound Type: vascular wound [place]on Test: Does not [place]on Wound Thickness: Full Thickness - multiple open wounds Wound Depth: 0.3 Percent of Wound [place]/Red: 100 Wound Drainage Description: Serosanguineous Wound Drainage Amount: Scant Wound Drainage Odor: None/Absent Tissue Surrounding Wound: Edematous - dryness ofthe surrounding skin Wound General Appearance: Reddened Wound Assessment #2: Wound Number: #2 Wound Present on Admission: Yes New Wound: No Status Change of Wound: No Wound Location Body Site Modif: left, lower, anterior Wound Location Body Site: leg Wound Type: vascular wound [place] Test: Does not [place] Wound Thickness: Full Thickness Wound Length: 3.5 Wound Width: 3.5 Wound Depth: 0.2 Percent of Wound [place]/Red: 100 Wound Drainage Amount: None Wound Drainage Odor: None/Absent Tissue Surrounding Wound: Edematous - and dryness of the surrounding skin Wound General Appearance: Reddened Wound Comment #1 Right lower posterior, anterior and medial leg with multiple open venous stasis ulcers #2 Left anterior lower leg open venous stasis ulcer Recommendation -Left anterior lower leg and right lower anterior,posterior and medial leg with open wounds, Cleanse with saline, pat dry, apply Xeroform dressing, cover with 4x4, wrap with Kerlix daily and PRN soiled/dislodged -Offload both Heels -Heel protector on both heels -Optimize nutrition -Elevate both legs -Assess and f/u accordingly for any changes RIGOBERTO DIAZ RN August 15, 2016 15:55
[2016-08-15 16:36] VITALS: BP 102/86
[2016-08-15] MEDS: Morphine Sulfate 10mg/ml Inj IVP PRN ×2 (18:41→21:51)
[2016-08-15] MEDS ORDERED: Cefepime 1gm/D5W 55ml IVPB SCH ×2 (20:00)
--- NOTE | 2016-08-15 21:22 | Pulmonology Progress Note ---
Assessment/Plan Problems: (1) Necrotic eschar (2) ESRD (end stage renal disease) on dialysis (3) Cellulitis (4) Methadone dependence (5) Venous ulcer of leg Assessment/Plan abx as per ID HD check electrolytes symptomatic treatment Subjective ROS Limited/Unobtainable: No Allergies: Coded Allergies: No Known Allergies (Unverified , 08/31/15) Objective Last 24 Hour Vital Signs Date Time Temp Pulse Resp B/P Pulse Ox O2 Delivery O2 Flow Rate FiO2 08/15/16 20:37 96.8 95 21 91 Room Air 08/15/16 19:39 88 18 Room Air 08/15/16 19:11 98.4 08/15/16 16:36 98.4 75 20 102/86 95 Room Air 08/15/16 15:08 83 109/67 08/15/16 12:10 98.2 69 20 93/97 95 Room Air 08/15/16 09:47 97.7 08/15/16 09:23 108 127/85 08/15/16 09:22 127/85 08/15/16 09:21 108 127/85 08/15/16 09:14 108 127/85 Room Air 95.0 08/15/16 06:48 99.0 08/15/16 06:39 103 18 Room Air 08/15/16 04:00 99.0 100 21 122/44 100 Room Air 08/14/16 22:12 83 125/82 08/14/16 21:30 79 20 Room Air 21 Intake and Output 08/14/16 08/15/16 19:00 07:00 Intake Total 1400 ml 200 ml Balance 1400 ml 200 ml Intake Oral 0 ml 200 ml Other 1400 ml # Voids 2 General Appearance: WD/WN HEENT: normocephalic Respiratory/Chest: chest wall non-tender, lungs clear Cardiovascular: normal peripheral pulses, normal rate Abdomen: normal bowel sounds, soft, non tender Genitourinary: normal external genitalia Laboratory Tests 08/15/16 04:45: White Blood Count 11.5H, Red Blood Count 3.11L, Hemoglobin 8.8L, Hematocrit 28.2L, Mean Corpuscular Volume 91, Mean Corpuscular Hemoglobin 28.4, Mean Corpuscular Hemoglobin Concent 31.4L, Red Cell Distribution Width 16.0H, Platelet Count 266, Mean Platelet Volume 5.3L, Neutrophils (%) (Auto) 78.0H, Lymphocytes (%) (Auto) 4.5L, Monocytes (%) (Auto) 14.2H, Eosinophils (%) (Auto) 1.2, Basophils (%) (Auto) 2.1H, Sodium Level 134L, Potassium Level 4.9, Chloride Level 90L, Carbon Dioxide Level 24, Anion Gap 20H, Blood Urea Nitrogen 53H, Creatinine 7.8H, Estimat Glomerular Filtration Rate 8.7, Glucose Level 120H , Calcium Level 9.8, Total Bilirubin 0.3, Aspartate Amino Transf (AST/SGOT) 18, Alanine Aminotransferase (ALT/SGPT) 11, Alkaline Phosphatase 91, Total Protein 8.0, Albumin 3.5, Globulin 4.5, Albumin/Globulin Ratio 0.7L Current Medications Medications (Trade) Dose Ordered Sig/Hilary Route PRN Reason Start Time Stop Time Status Last Admin Dose Admin Acetaminophen (Tylenol) 650 mg Q4H PRN ORAL T>100.5 08/14/16 15:45 09/13/16 15:44 Acetaminophen/ Hydrocodone Bitart ([place] 10/325) 1 ea Q6H PRN ORAL Moderate Pain (Pain Scale 4-6) 08/14/16 19:06 08/21/16 19:05 Albuterol/ Ipratropium (DuoNeb 0.5-3(2.5)mg/3ml) 3 ml Q4H PRN HHN Shortness of Breath 08/14/16 15:45 08/19/16 15:44 Carvedilol (Coreg) 25 mg EVERY 12 HOURS ORAL 08/14/16 21:00 09/13/16 20:59 08/15/16 09:21 Cinacalcet (Sensipar) 30 mg DAILY ORAL 08/15/16 09:00 09/14/16 08:59 08/15/16 09:23 Clonidine HCl (Catapres) 0.1 mg Q4H PRN GT SBP > 160 08/15/16 13:45 09/14/16 13:44 Dextrose (Dextrose 50%) STAT PRN IV Hypoglycemia 08/14/16 15:45 09/13/16 15:44 Gabapentin (Neurontin) 100 mg DAILY ORAL 08/15/16 09:00 09/14/16 08:59 08/15/16 09:22 Heparin Sodium (Porcine) (Heparin 5000 units/ml) 5,000 units EVERY 12 HOURS SUBQ 08/14/16 21:00 09/13/16 20:59 08/15/16 09:25 Ibuprofen (Motrin) 600 mg Q8H PRN ORAL Mild Pain (Pain Scale 1-3) 08/14/16 16:05 09/13/16 15:44 Losartan Potassium (Cozaar) 50 mg DAILY ORAL 08/15/16 09:00 09/14/16 08:59 08/15/16 09:22 Methadone HCl (Methadone HCl) 5 mg BID ORAL 08/14/16 20:00 08/21/16 19:59 08/15/16 18:39 Morphine Sulfate (Morphine Sulfate) 6 mg Q3H PRN IVP Severe Pain (Pain Scale 7-10) 08/15/16 17:00 08/22/16 16:59 08/15/16 18:41 Nifedipine (Procardia XL) 30 mg DAILY ORAL 08/15/16 09:00 09/14/16 08:59 08/15/16 09:23 Nitroglycerin (Ntg) 0.4 mg Q5MIN X 3 DOSES PRN SL Prn Chest Pain 08/14/16 16:15 09/13/16 16:14 Ondansetron HCl (Zofran) 4 mg Q6H PRN IVP Nausea & Vomiting 08/14/16 15:45 09/13/16 15:44 Pantoprazole (Protonix) 40 mg EVERY 12 HOURS ORAL 08/15/16 11:45 09/14/16 11:44 08/15/16 15:01 Polyethylene Glycol (Miralax) 17 gm DAILYPRN PRN ORAL Constipation 08/14/16 15:45 09/13/16 15:44 Temazepam (Restoril) 15 mg HSPRN PRN ORAL Insomnia 08/14/16 21:00 08/21/16 20:59 08/14/16 22:12 ANGELICA PARSON August 15, 2016 21:22
--- NOTE | 2016-08-15 21:46 | Consultation ---
DATE OF CONSULTATION: INFECTIOUS DISEASE CONSULTATION CONSULTING PHYSICIAN: Petar Short M.D. REFERRING PHYSICIAN: Jeremi Henderson M.D. REASON FOR CONSULTATION: Evaluation of the patient for right lower extremity wound, possible need for antibiotic treatment. HISTORY OF PRESENT ILLNESS: The patient is a 56-year-old male with multiple medical problems who has been admitted to this medical center for right leg wound. The patient is a poor historian. Infectious Disease consultation requested for possible need for antibiotic treatment. PAST MEDICAL HISTORY: 1. History of end-stage renal disease on hemodialysis. 2. History of elevated alkaline phosphatase . 3. History of chronic pain syndrome on methadone. 4. History of MRSA and VRE colonization. 5. Bilateral lower extremity cellulitis in the past. MEDICATIONS: Cefepime and vancomycin. ALLERGIES: No known drug allergies. SOCIAL HISTORY: The patient denies alcohol, drug abuse, or smoking. FAMILY HISTORY: Noncontributory. REVIEW OF SYSTEMS: Poor historian. PHYSICAL EXAMINATION: VITAL SIGNS: Temperature 98 degrees, blood pressure 92/77, pulse 86, respiratory rate 18. HEENT: Mild pale conjunctivae. No icterus. NECK: No lymphadenopathy. CHEST: Coarse breathing sounds. HEART: S1 and S2. ABDOMEN: Soft. EXTREMITIES: The patient has discoloration of bilateral lower extremity and mild edema. The patient has wound on the right lower extremity. No signs of discharge. No infection. LABORATORY DATA: WBC 11.5, hemoglobin 8.8, and platelets 266,000. BUN 53, creatinine 7.8. Venous Doppler lower extremity no evidence of deep venous thrombosis, ulceration. ASSESSMENT: The patient is a 56-year-old male with multiple medical problems who has been admitted to this medical center who came with bilateral peripheral right leg wound. Clinically, the patient does not have any infection and there is no evidence of cellulitis . The patient can be monitored off of antibiotics. The patient may benefit from local wound care. PLAN: 1. We will monitor the patient off of antibiotics. 2. We will . 3. Monitor CBC and BMP. 4. Monitor vital signs. Based on the patient's clinical course and laboratories, we will do further recommendation. Petar Short M.D. DR: Cris JOB#: [id number] CC:
[2016-08-16 00:12] VITALS: BP 104/66
[2016-08-16] MEDS: Morphine Sulfate 10mg/ml Inj IVP PRN ×6 (00:56→22:56)
[2016-08-16 04:00] VITALS: BP 130/88
[2016-08-16 07:18] LABS: HEMOGLOBIN A1C 5.2 % (< 6.0)
[2016-08-16 07:19] LABS: BASOPHILS % (AUTO) 1.3 % (0.0-2.0); EOSINOPHILS % (AUTO) 1.8 % (0.0-3.0); LYMPHOCYTES % (AUTO) 11.6 % (20.0-45.0); MEAN CORPUSCULAR HGB CONC 30.7 G/DL (32.0-36.0); MEAN CORPUSCULAR VOLUME 91 FL (80-99); MEAN PLATELET VOLUME 5.5 FL (6.5-10.1); MONOCYTES % (AUTO) 13.8 % (1.0-10.0); NEUTROPHILS % (AUTO) 71.5 % (45.0-75.0); PLATELET COUNT 318 K/UL (150-450); RED BLOOD COUNT 3.37 M/UL (4.70-6.10)
[2016-08-16 07:41] LABS: ALANINE AMINOTRANSFERASE 13 U/L (3-41); ALBUMIN/GLOBULIN RATIO 0.7 (1.0-2.7); ASPARTATE AMINO TRANSFERASE 23 U/L (5-40); CALCIUM 10.3 mg/dL (8.6-10.2); CARBON DIOXIDE 25 mEQ/L (20-30); CHLORIDE 83 mEQ/L (98-107); CHOLESTEROL 126 mg/dL (< 200); CHOLESTEROL/HDL RATIO 2.7 (3.3-4.4); CREATININE 9.1 mg/dL (0.7-1.2); CRP QUANT 22.1 mg/dL (< 0.5); GLOMERULAR FILTRATION RATE 7.3 mL/min (>60); HEMOLYSIS 4; LDL CHOLESTEROL (CALC.) 55 mg/dL (60-99); MAGNESIUM 2.6 mg/dL (1.7-2.5); PHOSPHORUS 5.9 mg/dL (2.5-4.8); SODIUM 130 mEQ/L (135-145); TOTAL PROTEIN 8.7 g/dL (6.6-8.7); URIC ACID 6.1 mg/dL (3.0-7.5)
[2016-08-16 07:50] LABS: ANION GAP 22 (5-15)
[2016-08-16 07:53] LABS: POTASSIUM 6.4 mEQ/L (3.4-4.9)
[2016-08-16 08:00] VITALS: BP 119/75
[2016-08-16] MEDS: Sensipar 30mg Tab ORAL SCH (08:48)
[2016-08-16] MEDS: Heparin 5000 units/ml inj SUBQ SCH ×2 (08:49→22:06)
[2016-08-16] MEDS: Carvedilol 25mg Tab ORAL SCH ×2 (09:00→22:01)
[2016-08-16] MEDS: Losartan 50mg tab ORAL SCH (09:00)
--- NOTE | 2016-08-16 10:45 | Infectious Diseases Prog Note ---
Assessment/Plan Assessment/Plan ASSESSMENT: 55 y/o male with: // no evid of wound infection and cellulitis - doppler(-) DVT // Leukocytosis, mild , afebrile // ESRD / HD with RUE AVF // Isolated ALP elevation - GGT WNL // Elevated CRP // Chronic pain syndrome, on methadone // h/o MRSA, VRE colonization // NKDA // Full Code PLAN: - monitor pt off of AB Rx ( 08/15 SP DC on IV vancomycin, cefepime d # 1 ) - monitor CBC, temperatures - monitor BMP - wound care Subjective Constitutional: Denies: anorexia, chills, drenching sweats, fatigue, fever, no symptoms, other Allergies: Coded Allergies: No Known Allergies (Unverified , 08/31/15) Objective Vital Signs Last 24 Hour Vital Signs Date Time Temp Pulse Resp B/P Pulse Ox O2 Delivery O2 Flow Rate FiO2 08/16/16 08:00 97.7 95 20 119/75 98 Room Air 08/16/16 07:45 87 18 Room Air 08/16/16 04:30 97.2 08/16/16 04:00 97.7 95 21 130/88 91 Room Air 08/16/16 00:12 97.2 100 21 104/66 98 Room Air 08/15/16 21:50 95 122/86 08/15/16 20:37 96.8 95 21 91 Room Air 08/15/16 19:39 88 18 Room Air 08/15/16 16:36 98.4 75 20 102/86 95 Room Air 08/15/16 15:08 83 109/67 08/15/16 12:10 98.2 69 20 93/97 95 Room Air Height (Feet): 5 Height (Inches): 10.00 Weight (Pounds): 180 HEENT: anicteric Respiratory/Chest: no accessory muscle use Cardiovascular: regular rhythm Abdomen: non distended Microbiology Date/Time Source Procedure Growth Status 08/14/16 14:45 Blood Blood Culture - Preliminary NO GROWTH AFTER 24 HOURS Resulted 08/14/16 14:30 Blood Blood Culture - Preliminary NO GROWTH AFTER 24 HOURS Resulted Laboratory Tests Test 08/16/16 06:50 White Blood Count 11.0 K/UL (4.8-10.8) H Red Blood Count 3.37 M/UL (4.70-6.10) L Hemoglobin 9.4 G/DL (14.2-18.0) L Hematocrit 30.7 % (42.0-52.0) L Mean Corpuscular Volume 91 FL (80-99) Mean Corpuscular Hemoglobin 28.0 PG (27.0-31.0) Mean Corpuscular Hemoglobin Concent 30.7 G/DL (32.0-36.0) L Red Cell Distribution Width 16.0 % (11.6-14.8) H Platelet Count 318 K/UL (150-450) Mean Platelet Volume 5.5 FL (6.5-10.1) L Neutrophils (%) (Auto) 71.5 % (45.0-75.0) Lymphocytes (%) (Auto) 11.6 % (20.0-45.0) L Monocytes (%) (Auto) 13.8 % (1.0-10.0) H Eosinophils (%) (Auto) 1.8 % (0.0-3.0) Basophils (%) (Auto) 1.3 % (0.0-2.0) Sodium Level 130 mEQ/L (135-145) L Potassium Level 6.4 mEQ/L (3.4-4.9) *H Chloride Level 83 mEQ/L (98-107) L Carbon Dioxide Level 25 mEQ/L (20-30) Anion Gap 22 (5-15) H Blood Urea Nitrogen 72 mg/dL (7-23) H Creatinine 9.1 mg/dL (0.7-1.2) H Estimat Glomerular Filtration Rate 7.3 mL/min (>60) Glucose Level 106 mg/dL (74-106) Hemoglobin A1c 5.2 % (< 6.0) Uric Acid 6.1 mg/dL (3.0-7.5) Calcium Level 10.3 mg/dL (8.6-10.2) H Phosphorus Level 5.9 mg/dL (2.5-4.8) H Magnesium Level 2.6 mg/dL (1.7-2.5) H Total Bilirubin 0.3 mg/dL (0.0-1.2) Gamma Glutamyl Transpeptidase 42 U/L (8-61) Aspartate Amino Transf (AST/SGOT) 23 U/L (5-40) Alanine Aminotransferase (ALT/SGPT) 13 U/L (3-41) Alkaline Phosphatase 101 U/L (40-129) Total Creatine Kinase 123 U/L (38-174) C-Reactive Protein, Quantitative 22.1 mg/dL (< 0.5) H Pro-B-Type Natriuretic Peptide 13331 pg/mL (0-125) H Total Protein 8.7 g/dL (6.6-8.7) Albumin 3.8 g/dL (3.5-5.2) Globulin 4.9 g/dL Albumin/Globulin Ratio 0.7 (1.0-2.7) L Triglycerides Level 119 mg/dL (< 150) Cholesterol Level 126 mg/dL (< 200) LDL Cholesterol 55 mg/dL (60-99) L HDL Cholesterol 47 mg/dL (> 60) Cholesterol/HDL Ratio 2.7 (3.3-4.4) L Vitamin B12 Level 636 pg/mL (211-946) Thyroid Stimulating Hormone (TSH) 1.150 uIU/mL (0.300-4.500) Current Medications Medications (Trade) Dose Ordered Sig/Hilary Route PRN Reason Start Time Stop Time Status Last Admin Dose Admin Acetaminophen (Tylenol) 650 mg Q4H PRN ORAL T>100.5 08/14/16 15:45 09/13/16 15:44 Acetaminophen/ Hydrocodone Bitart ([place] 10/325) 1 ea Q6H PRN ORAL Moderate Pain (Pain Scale 4-6) 08/14/16 19:06 08/21/16 19:05 Albuterol/ Ipratropium (DuoNeb 0.5-3(2.5)mg/3ml) 3 ml Q4H PRN HHN Shortness of Breath 08/14/16 15:45 08/19/16 15:44 Carvedilol (Coreg) 25 mg EVERY 12 HOURS ORAL 08/14/16 21:00 09/13/16 20:59 08/15/16 21:50 Cinacalcet (Sensipar) 30 mg DAILY ORAL 08/15/16 09:00 09/14/16 08:59 08/16/16 08:48 Clonidine HCl (Catapres) 0.1 mg Q4H PRN GT SBP > 160 08/15/16 13:45 09/14/16 13:44 Dextrose (Dextrose 50%) STAT PRN IV Hypoglycemia 08/14/16 15:45 09/13/16 15:44 Gabapentin (Neurontin) 100 mg DAILY ORAL 08/15/16 09:00 09/14/16 08:59 08/16/16 08:48 Heparin Sodium (Porcine) (Heparin 5000 units/ml) 5,000 units EVERY 12 HOURS SUBQ 08/14/16 21:00 09/13/16 20:59 08/16/16 08:49 Ibuprofen (Motrin) 600 mg Q8H PRN ORAL Mild Pain (Pain Scale 1-3) 08/14/16 16:05 09/13/16 15:44 Losartan Potassium (Cozaar) 50 mg DAILY ORAL 08/15/16 09:00 09/14/16 08:59 08/15/16 09:22 Methadone HCl (Methadone HCl) 5 mg BID ORAL 08/14/16 20:00 08/21/16 19:59 08/16/16 08:47 Morphine Sulfate (Morphine Sulfate) 6 mg Q3H PRN IVP Severe Pain (Pain Scale 7-10) 08/15/16 17:00 08/22/16 16:59 08/16/16 07:00 Nifedipine (Procardia XL) 30 mg DAILY ORAL 08/15/16 09:00 09/14/16 08:59 08/15/16 09:23 Nitroglycerin (Ntg) 0.4 mg Q5MIN X 3 DOSES PRN SL Prn Chest Pain 08/14/16 16:15 09/13/16 16:14 Ondansetron HCl (Zofran) 4 mg Q6H PRN IVP Nausea & Vomiting 08/14/16 15:45 09/13/16 15:44 Pantoprazole (Protonix) 40 mg EVERY 12 HOURS ORAL 08/15/16 11:45 09/14/16 11:44 08/16/16 08:51 Polyethylene Glycol (Miralax) 17 gm DAILYPRN PRN ORAL Constipation 08/14/16 15:45 09/13/16 15:44 Temazepam (Restoril) 15 mg HSPRN PRN ORAL Insomnia 08/14/16 21:00 08/21/16 20:59 08/15/16 21:51 KHOA ADAME M.D. August 16, 2016 10:45
--- NOTE | 2016-08-16 11:24 | General Progress Note ---
Assessment/Plan Status: unchanged Status Narrative pre HD K is high Assessment/Plan ESRD on HD M W Fr HTN Anemia Bilateral LE edema Methadone dependence Venous stasis dermatitis of both lower extremities Venous ulcer of right leg Necrotic eschar Plan: HD with UF shortly Adjust BP meds- Vascular studies LEs, wound care per orders Subjective ROS Limited/Unobtainable: No Allergies: Coded Allergies: No Known Allergies (Unverified , 08/31/15) Objective Last 24 Hour Vital Signs Date Time Temp Pulse Resp B/P Pulse Ox O2 Delivery O2 Flow Rate FiO2 08/16/16 08:00 97.7 95 20 119/75 98 Room Air 08/16/16 07:45 87 18 Room Air 08/16/16 04:30 97.2 08/16/16 04:00 97.7 95 21 130/88 91 Room Air 08/16/16 00:12 97.2 100 21 104/66 98 Room Air 08/15/16 21:50 95 122/86 08/15/16 20:37 96.8 95 21 91 Room Air 08/15/16 19:39 88 18 Room Air 08/15/16 16:36 98.4 75 20 102/86 95 Room Air 08/15/16 15:08 83 109/67 08/15/16 12:10 98.2 69 20 93/97 95 Room Air Intake and Output 08/15/16 08/16/16 19:00 07:00 Intake Total 840 ml Output Total 900 ml Balance 840 ml -900 ml Intake Oral 840 ml Output Urine Total 900 ml Laboratory Tests 08/16/16 06:50: White Blood Count 11.0H, Red Blood Count 3.37L, Hemoglobin 9.4L, Hematocrit 30.7L, Mean Corpuscular Volume 91, Mean Corpuscular Hemoglobin 28.0, Mean Corpuscular Hemoglobin Concent 30.7L, Red Cell Distribution Width 16.0H, Platelet Count 318, Mean Platelet Volume 5.5L, Neutrophils (%) (Auto) 71.5, Lymphocytes (%) (Auto) 11.6L, Monocytes (%) (Auto) 13.8H, Eosinophils (%) (Auto ) 1.8, Basophils (%) (Auto) 1.3, Sodium Level 130L, Potassium Level 6.4*H, Chloride Level 83L, Carbon Dioxide Level 25, Anion Gap 22H, Blood Urea Nitrogen 72H, Creatinine 9.1H, Estimat Glomerular Filtration Rate 7.3, Glucose Level 106 , Hemoglobin A1c 5.2, Uric Acid 6.1, Calcium Level 10.3H, Phosphorus Level 5.9H , Magnesium Level 2.6H, Total Bilirubin 0.3, Gamma Glutamyl Transpeptidase 42, Aspartate Amino Transf (AST/SGOT) 23, Alanine Aminotransferase (ALT/SGPT) 13, Alkaline Phosphatase 101, Total Creatine Kinase 123, C-Reactive Protein, Quantitative 22.1H, Pro-B-Type Natriuretic Peptide 39566M, Total Protein 8.7, Albumin 3.8, Globulin 4.9, Albumin/Globulin Ratio 0.7L, Triglycerides Level 119 , Cholesterol Level 126, LDL Cholesterol 55L, HDL Cholesterol 47, Cholesterol/ HDL Ratio 2.7L, Vitamin B12 Level 636, Thyroid Stimulating Hormone (TSH) 1.150 Height (Feet): 5 Height (Inches): 10.00 Weight (Pounds): 180 General Appearance: no apparent distress Cardiovascular: tachycardia Respiratory/Chest: decreased breath sounds Objective PE not changed ELSA RICHMOND August 16, 2016 11:24
[2016-08-16 12:00] VITALS: BP 143/90
[2016-08-16 16:00] VITALS: BP 112/75
--- NOTE | 2016-08-16 19:16 | Pulmonology Progress Note ---
Assessment/Plan Problems: (1) Cellulitis (2) ESRD (end stage renal disease) on dialysis (3) Necrotic eschar (4) Venous stasis dermatitis of both lower extremities (5) Methadone dependence Assessment/Plan continue antibiotics check cultures HD by nephrolgy dc in a few days. Subjective ROS Limited/Unobtainable: No Interval Events: slightly better Allergies: Coded Allergies: No Known Allergies (Unverified , 08/31/15) Objective Last 24 Hour Vital Signs Date Time Temp Pulse Resp B/P Pulse Ox O2 Delivery O2 Flow Rate FiO2 08/16/16 16:00 97.7 93 20 112/75 96 Room Air 08/16/16 14:48 Room Air 08/16/16 12:00 98.1 95 20 143/90 97 Room Air 08/16/16 11:00 Room Air 95.0 21 08/16/16 09:00 95 119/75 08/16/16 09:00 143/90 08/16/16 09:00 95 143/90 08/16/16 08:00 97.7 95 20 119/75 98 Room Air 08/16/16 07:45 87 18 Room Air 08/16/16 04:30 97.2 08/16/16 04:00 97.7 95 21 130/88 91 Room Air 08/16/16 00:12 97.2 100 21 104/66 98 Room Air 08/15/16 21:50 95 122/86 08/15/16 20:37 96.8 95 21 91 Room Air 08/15/16 19:39 88 18 Room Air Intake and Output 08/15/16 08/16/16 19:00 07:00 Intake Total 840 ml Output Total 900 ml Balance 840 ml -900 ml Intake Oral 840 ml Output Urine Total 900 ml General Appearance: WD/WN HEENT: normocephalic Respiratory/Chest: chest wall non-tender, lungs clear Cardiovascular: normal peripheral pulses, normal rate Abdomen: normal bowel sounds, soft, non tender Skin: no rash 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 Lymphatic: no neck adenopathy Microbiology Date/Time Source Procedure Growth Status 08/14/16 14:45 Blood Blood Culture - Preliminary NO GROWTH AFTER 24 HOURS Resulted 08/14/16 14:30 Blood Blood Culture - Preliminary NO GROWTH AFTER 24 HOURS Resulted 08/15/16 21:00 Leg Left Gram Stain - Final Resulted 08/15/16 21:00 Leg Left Wound Culture Pending Resulted Laboratory Tests 08/16/16 06:50: White Blood Count 11.0H, Red Blood Count 3.37L, Hemoglobin 9.4L, Hematocrit 30.7L, Mean Corpuscular Volume 91, Mean Corpuscular Hemoglobin 28.0, Mean Corpuscular Hemoglobin Concent 30.7L, Red Cell Distribution Width 16.0H, Platelet Count 318, Mean Platelet Volume 5.5L, Neutrophils (%) (Auto) 71.5, Lymphocytes (%) (Auto) 11.6L, Monocytes (%) (Auto) 13.8H, Eosinophils (%) (Auto ) 1.8, Basophils (%) (Auto) 1.3, Sodium Level 130L, Potassium Level 6.4*H, Chloride Level 83L, Carbon Dioxide Level 25, Anion Gap 22H, Blood Urea Nitrogen 72H, Creatinine 9.1H, Estimat Glomerular Filtration Rate 7.3, Glucose Level 106 , Hemoglobin A1c 5.2, Uric Acid 6.1, Calcium Level 10.3H, Phosphorus Level 5.9H , Magnesium Level 2.6H, Total Bilirubin 0.3, Gamma Glutamyl Transpeptidase 42, Aspartate Amino Transf (AST/SGOT) 23, Alanine Aminotransferase (ALT/SGPT) 13, Alkaline Phosphatase 101, Total Creatine Kinase 123, C-Reactive Protein, Quantitative 22.1H, Pro-B-Type Natriuretic Peptide 24403G, Total Protein 8.7, Albumin 3.8, Globulin 4.9, Albumin/Globulin Ratio 0.7L, Triglycerides Level 119 , Cholesterol Level 126, LDL Cholesterol 55L, HDL Cholesterol 47, Cholesterol/ HDL Ratio 2.7L, Vitamin B12 Level 636, Thyroid Stimulating Hormone (TSH) 1.150 Current Medications Medications (Trade) Dose Ordered Sig/Hilary Route PRN Reason Start Time Stop Time Status Last Admin Dose Admin Acetaminophen (Tylenol) 650 mg Q4H PRN ORAL T>100.5 08/14/16 15:45 09/13/16 15:44 Acetaminophen/ Hydrocodone Bitart ([place] 10/325) 1 ea Q6H PRN ORAL Moderate Pain (Pain Scale 4-6) 08/14/16 19:06 08/21/16 19:05 Albuterol/ Ipratropium (DuoNeb 0.5-3(2.5)mg/3ml) 3 ml Q4H PRN HHN Shortness of Breath 08/14/16 15:45 08/19/16 15:44 Carvedilol (Coreg) 25 mg EVERY 12 HOURS ORAL 08/14/16 21:00 09/13/16 20:59 08/15/16 21:50 Cinacalcet (Sensipar) 90 mg DAILY ORAL 08/17/16 09:00 09/16/16 08:59 Clonidine HCl (Catapres) 0.1 mg Q4H PRN GT SBP > 160 08/15/16 13:45 09/14/16 13:44 Dextrose (Dextrose 50%) STAT PRN IV Hypoglycemia 08/14/16 15:45 09/13/16 15:44 Gabapentin (Neurontin) 100 mg DAILY ORAL 08/15/16 09:00 09/14/16 08:59 08/16/16 08:48 Heparin Sodium (Porcine) (Heparin 5000 units/ml) 5,000 units EVERY 12 HOURS SUBQ 08/14/16 21:00 09/13/16 20:59 08/16/16 08:49 Ibuprofen (Motrin) 600 mg Q8H PRN ORAL Mild Pain (Pain Scale 1-3) 08/14/16 16:05 09/13/16 15:44 Losartan Potassium (Cozaar) 50 mg DAILY ORAL 08/15/16 09:00 09/14/16 08:59 08/15/16 09:22 Methadone HCl (Methadone HCl) 5 mg BID ORAL 08/14/16 20:00 08/21/16 19:59 08/16/16 17:48 Morphine Sulfate (Morphine Sulfate) 6 mg Q3H PRN IVP Severe Pain (Pain Scale 7-10) 08/15/16 17:00 08/22/16 16:59 08/16/16 16:46 Nitroglycerin (Ntg) 0.4 mg Q5MIN X 3 DOSES PRN SL Prn Chest Pain 08/14/16 16:15 09/13/16 16:14 Ondansetron HCl (Zofran) 4 mg Q6H PRN IVP Nausea & Vomiting 08/14/16 15:45 09/13/16 15:44 Pantoprazole (Protonix) 40 mg EVERY 12 HOURS ORAL 08/15/16 11:45 09/14/16 11:44 08/16/16 08:51 Polyethylene Glycol (Miralax) 17 gm DAILYPRN PRN ORAL Constipation 08/14/16 15:45 09/13/16 15:44 Sevelamer Carbonate (Renvela) 1,600 mg THREE TIMES A DAY ORAL 08/16/16 13:00 09/15/16 12:59 08/16/16 17:48 Temazepam (Restoril) 15 mg HSPRN PRN ORAL Insomnia 08/14/16 21:00 08/21/16 20:59 08/15/16 21:51 ANGELICA PASRON August 16, 2016 19:16
[2016-08-16 20:00] VITALS: BP 124/81
[2016-08-17] VITALS (7 sets, daily range): BP systolic 104–141; BP diastolic 68–86
[2016-08-17] MEDS: Morphine Sulfate 10mg/ml Inj IVP PRN ×6 (02:33→23:54)
[2016-08-17 07:11] LABS: BASOPHILS % (AUTO) 0.9 % (0.0-2.0); EOSINOPHILS % (AUTO) 2.4 % (0.0-3.0); MEAN CORPUSCULAR HEMOGLOBIN 28.2 PG (27.0-31.0); MEAN CORPUSCULAR HGB CONC 31.1 G/DL (32.0-36.0); MEAN CORPUSCULAR VOLUME 91 FL (80-99); MEAN PLATELET VOLUME 5.5 FL (6.5-10.1); MONOCYTES % (AUTO) 14.3 % (1.0-10.0); NEUTROPHILS % (AUTO) 68.5 % (45.0-75.0); PLATELET COUNT 335 K/UL (150-450); RED CELL DISTRIBUTION WIDTH 15.6 % (11.6-14.8); WHITE BLOOD COUNT 9.9 K/UL (4.8-10.8)
[2016-08-17 07:45] LABS: ALBUMIN/GLOBULIN RATIO 0.7 (1.0-2.7); CALCIUM 10.4 mg/dL (8.6-10.2); CREATININE 7.8 mg/dL (0.7-1.2); CRP QUANT 21.3 mg/dL (< 0.5); GLOMERULAR FILTRATION RATE 8.7 mL/min (>60); MAGNESIUM 2.5 mg/dL (1.7-2.5); PHOSPHORUS 6.3 mg/dL (2.5-4.8); POTASSIUM 5.3 mEQ/L (3.4-4.9); TOTAL PROTEIN 9.1 g/dL (6.6-8.7)
[2016-08-17] MEDS: Sensipar 30mg Tab ORAL SCH (09:03)
[2016-08-17] MEDS: Losartan 50mg tab ORAL SCH (09:04)
[2016-08-17] MEDS: Carvedilol 25mg Tab ORAL SCH ×2 (09:04→21:34)
[2016-08-17] MEDS: Heparin 5000 units/ml inj SUBQ SCH ×2 (09:05→21:41)
[2016-08-17] MEDS ORDERED: Sodium Polystyrene Sulfonate 15gm Powder ORAL ONE (09:30)
--- NOTE | 2016-08-17 10:06 | General Progress Note ---
Assessment/Plan Status: stable Status Narrative K 5.3 Assessment/Plan ESRD on HD M W Fr HTN Anemia Bilateral LE edema Methadone dependence Venous stasis dermatitis of both lower extremities Venous ulcer of right leg Necrotic eschar Plan: HD done 08/16 next 08/19 Kayexelate- Up dose Renvela Adjust BP meds- Vascular studies LEs, wound care per orders Subjective ROS Limited/Unobtainable: No Allergies: Coded Allergies: No Known Allergies (Unverified , 08/31/15) Objective Last 24 Hour Vital Signs Date Time Temp Pulse Resp B/P Pulse Ox O2 Delivery O2 Flow Rate FiO2 08/17/16 09:04 134/86 08/17/16 09:04 95 134/86 08/17/16 08:18 97.8 95 20 134/86 98 Room Air 08/17/16 07:41 100 18 Room Air 08/17/16 06:03 98.0 08/17/16 04:00 98.0 90 20 125/81 97 Room Air 95.0 21 08/17/16 00:00 98.0 100 20 126/81 97 Room Air 95.0 21 08/16/16 22:01 79 124/81 08/16/16 21:12 79 15 Room Air 08/16/16 20:00 98.0 104 20 124/81 97 Room Air 95.0 21 08/16/16 16:00 97.7 93 20 112/75 96 Room Air 08/16/16 14:48 Room Air 08/16/16 12:00 98.1 95 20 143/90 97 Room Air 08/16/16 11:00 Room Air 95.0 21 Intake and Output 08/16/16 08/17/16 19:00 07:00 Intake Total 480 ml Output Total 3100 ml Balance -2620 ml Intake Oral 480 ml Hemodialysis UF 3100 ml # Voids 1 2 # Bowel Movements 1 Laboratory Tests 08/17/16 06:30: White Blood Count 9.9, Red Blood Count 3.30L, Hemoglobin 9.3L, Hematocrit 29.9L , Mean Corpuscular Volume 91, Mean Corpuscular Hemoglobin 28.2, Mean Corpuscular Hemoglobin Concent 31.1L, Red Cell Distribution Width 15.6H, Platelet Count 335, Mean Platelet Volume 5.5L, Neutrophils (%) (Auto) 68.5, Lymphocytes (%) (Auto) 14.0L, Monocytes (%) (Auto) 14.3H, Eosinophils (%) (Auto ) 2.4, Basophils (%) (Auto) 0.9, Sodium Level 132L, Potassium Level 5.3H, Chloride Level 83L, Carbon Dioxide Level 28, Anion Gap 21H, Blood Urea Nitrogen 60H, Creatinine 7.8H, Estimat Glomerular Filtration Rate 8.7, Glucose Level 106 , Uric Acid 5.0, Calcium Level 10.4H, Phosphorus Level 6.3H, Magnesium Level 2.5 , Total Bilirubin 0.3, Aspartate Amino Transf (AST/SGOT) 24, Alanine Aminotransferase (ALT/SGPT) 11, Alkaline Phosphatase 102, C-Reactive Protein, Quantitative 21.3H, Pro-B-Type Natriuretic Peptide 80728K, Total Protein 9.1H, Albumin 3.9, Globulin 5.2, Albumin/Globulin Ratio 0.7L Height (Feet): 5 Height (Inches): 10.00 Weight (Pounds): 180 General Appearance: no apparent distress Objective PE not changed ELSA RICHMOND August 17, 2016 10:06
[2016-08-17] MEDS ORDERED: LORazepam Inj 2mg/ml 1ml IV ONE (12:30)
--- NOTE | 2016-08-17 18:30 | Infectious Diseases Prog Note ---
Assessment/Plan Assessment/Plan ASSESSMENT: 55 y/o male with: // no evid of wound infection and cellulitis - doppler(-) DVT // Leukocytosis, SP , afebrile // Wnd cx : colonization // ESRD / HD with RUE AVF // Isolated ALP elevation - GGT WNL // Elevated CRP // Chronic pain syndrome, on methadone // h/o MRSA, VRE colonization // NKDA // Full Code PLAN: - monitor pt off of AB Rx ( 08/15 SP DC on IV vancomycin, cefepime d # 1 ) - monitor CBC, temperatures - monitor BMP - wound care Subjective Constitutional: Denies: anorexia, chills, drenching sweats, fatigue, fever, no symptoms, other Allergies: Coded Allergies: No Known Allergies (Unverified , 08/31/15) Objective Vital Signs Last 24 Hour Vital Signs Date Time Temp Pulse Resp B/P Pulse Ox O2 Delivery O2 Flow Rate FiO2 08/17/16 16:31 96.8 72 19 104/68 96 Room Air 08/17/16 12:11 97.9 81 18 141/70 97 Room Air 08/17/16 09:04 134/86 08/17/16 09:04 95 134/86 08/17/16 08:18 97.8 95 20 134/86 98 Room Air 08/17/16 07:41 100 18 Room Air 08/17/16 06:03 98.0 08/17/16 04:00 98.0 90 20 125/81 97 Room Air 95.0 21 08/17/16 00:00 98.0 100 20 126/81 97 Room Air 95.0 21 08/16/16 22:01 79 124/81 08/16/16 21:12 79 15 Room Air 08/16/16 20:00 98.0 104 20 124/81 97 Room Air 95.0 21 Height (Feet): 5 Height (Inches): 10.00 Weight (Pounds): 180 HEENT: anicteric Respiratory/Chest: no respiratory distress Cardiovascular: regularly irregular Abdomen: non distended Microbiology Date/Time Source Procedure Growth Status 08/15/16 21:00 Leg Left Gram Stain - Final Resulted 08/15/16 21:00 Wound Culture - Preliminary Gram Negative Aston Resulted Laboratory Tests Test 08/17/16 06:30 White Blood Count 9.9 K/UL (4.8-10.8) Red Blood Count 3.30 M/UL (4.70-6.10) L Hemoglobin 9.3 G/DL (14.2-18.0) L Hematocrit 29.9 % (42.0-52.0) L Mean Corpuscular Volume 91 FL (80-99) Mean Corpuscular Hemoglobin 28.2 PG (27.0-31.0) Mean Corpuscular Hemoglobin Concent 31.1 G/DL (32.0-36.0) L Red Cell Distribution Width 15.6 % (11.6-14.8) H Platelet Count 335 K/UL (150-450) Mean Platelet Volume 5.5 FL (6.5-10.1) L Neutrophils (%) (Auto) 68.5 % (45.0-75.0) Lymphocytes (%) (Auto) 14.0 % (20.0-45.0) L Monocytes (%) (Auto) 14.3 % (1.0-10.0) H Eosinophils (%) (Auto) 2.4 % (0.0-3.0) Basophils (%) (Auto) 0.9 % (0.0-2.0) Sodium Level 132 mEQ/L (135-145) L Potassium Level 5.3 mEQ/L (3.4-4.9) H Chloride Level 83 mEQ/L (98-107) L Carbon Dioxide Level 28 mEQ/L (20-30) Anion Gap 21 (5-15) H Blood Urea Nitrogen 60 mg/dL (7-23) H Creatinine 7.8 mg/dL (0.7-1.2) H Estimat Glomerular Filtration Rate 8.7 mL/min (>60) Glucose Level 106 mg/dL (74-106) Uric Acid 5.0 mg/dL (3.0-7.5) Calcium Level 10.4 mg/dL (8.6-10.2) H Phosphorus Level 6.3 mg/dL (2.5-4.8) H Magnesium Level 2.5 mg/dL (1.7-2.5) Total Bilirubin 0.3 mg/dL (0.0-1.2) Aspartate Amino Transf (AST/SGOT) 24 U/L (5-40) Alanine Aminotransferase (ALT/SGPT) 11 U/L (3-41) Alkaline Phosphatase 102 U/L (40-129) C-Reactive Protein, Quantitative 21.3 mg/dL (< 0.5) H Pro-B-Type Natriuretic Peptide 84125 pg/mL (0-125) H Total Protein 9.1 g/dL (6.6-8.7) H Albumin 3.9 g/dL (3.5-5.2) Globulin 5.2 g/dL Albumin/Globulin Ratio 0.7 (1.0-2.7) L Current Medications Medications (Trade) Dose Ordered Sig/Hilary Route PRN Reason Start Time Stop Time Status Last Admin Dose Admin Acetaminophen (Tylenol) 650 mg Q4H PRN ORAL T>100.5 08/14/16 15:45 09/13/16 15:44 Acetaminophen/ Hydrocodone Bitart ([place] 10/325) 1 ea Q6H PRN ORAL Moderate Pain (Pain Scale 4-6) 08/14/16 19:06 08/21/16 19:05 Albuterol/ Ipratropium (DuoNeb 0.5-3(2.5)mg/3ml) 3 ml Q4H PRN HHN Shortness of Breath 08/14/16 15:45 08/19/16 15:44 Carvedilol (Coreg) 25 mg EVERY 12 HOURS ORAL 08/14/16 21:00 09/13/16 20:59 08/17/16 09:04 Cinacalcet (Sensipar) 90 mg DAILY ORAL 08/17/16 09:00 09/16/16 08:59 08/17/16 09:03 Clonidine HCl (Catapres) 0.1 mg Q4H PRN GT SBP > 160 08/15/16 13:45 09/14/16 13:44 Dextrose (Dextrose 50%) STAT PRN IV Hypoglycemia 08/14/16 15:45 09/13/16 15:44 Diphenhydramine HCl (Benadryl) 25 mg Q6H PRN ORAL Itching 08/16/16 20:30 09/15/16 20:29 08/17/16 05:32 Gabapentin (Neurontin) 100 mg DAILY ORAL 08/15/16 09:00 09/14/16 08:59 08/17/16 09:04 Heparin Sodium (Porcine) (Heparin 5000 units/ml) 5,000 units EVERY 12 HOURS SUBQ 08/14/16 21:00 09/13/16 20:59 08/17/16 09:05 Ibuprofen (Motrin) 600 mg Q8H PRN ORAL Mild Pain (Pain Scale 1-3) 08/14/16 16:05 09/13/16 15:44 Losartan Potassium (Cozaar) 50 mg DAILY ORAL 08/15/16 09:00 09/14/16 08:59 08/17/16 09:04 Methadone HCl (Methadone HCl) 5 mg BID ORAL 08/14/16 20:00 08/21/16 19:59 08/17/16 17:49 Morphine Sulfate (Morphine Sulfate) 6 mg Q3H PRN IVP Severe Pain (Pain Scale 7-10) 08/15/16 17:00 08/22/16 16:59 08/17/16 12:25 Nitroglycerin (Ntg) 0.4 mg Q5MIN X 3 DOSES PRN SL Prn Chest Pain 08/14/16 16:15 09/13/16 16:14 Ondansetron HCl (Zofran) 4 mg Q6H PRN IVP Nausea & Vomiting 08/14/16 15:45 09/13/16 15:44 Pantoprazole (Protonix) 40 mg EVERY 12 HOURS ORAL 08/15/16 11:45 09/14/16 11:44 08/17/16 09:03 Polyethylene Glycol (Miralax) 17 gm DAILYPRN PRN ORAL Constipation 08/14/16 15:45 09/13/16 15:44 Sevelamer Carbonate (Renvela) 2,400 mg THREE TIMES A DAY ORAL 08/17/16 13:00 09/16/16 12:59 08/17/16 17:50 Temazepam (Restoril) 15 mg HSPRN PRN ORAL Insomnia 08/14/16 21:00 08/21/16 20:59 08/16/16 22:56 KHOA ADAME M.D. August 17, 2016 18:30
--- NOTE | 2016-08-17 19:02 | Pulmonology Progress Note ---
Assessment/Plan Problems: (1) Necrotic eschar (2) ESRD (end stage renal disease) on dialysis (3) Cellulitis (4) Methadone dependence (5) Venous ulcer of leg Assessment/Plan off abx HD check electrolytes symptomatic treatment pain management check arterial study Subjective ROS Limited/Unobtainable: No Constitutional: Reports: no symptoms Respiratory: Reports: no symptoms Allergies: Coded Allergies: No Known Allergies (Unverified , 08/31/15) Objective Last 24 Hour Vital Signs Date Time Temp Pulse Resp B/P Pulse Ox O2 Delivery O2 Flow Rate FiO2 08/17/16 16:31 96.8 72 19 104/68 96 Room Air 08/17/16 12:11 97.9 81 18 141/70 97 Room Air 08/17/16 09:04 134/86 08/17/16 09:04 95 134/86 08/17/16 08:18 97.8 95 20 134/86 98 Room Air 08/17/16 07:41 100 18 Room Air 08/17/16 06:03 98.0 08/17/16 04:00 98.0 90 20 125/81 97 Room Air 95.0 21 08/17/16 00:00 98.0 100 20 126/81 97 Room Air 95.0 21 08/16/16 22:01 79 124/81 08/16/16 21:12 79 15 Room Air 08/16/16 20:00 98.0 104 20 124/81 97 Room Air 95.0 21 Intake and Output 08/16/16 08/17/16 19:00 07:00 Intake Total 480 ml Output Total 3100 ml Balance -2620 ml Intake Oral 480 ml Hemodialysis UF 3100 ml # Voids 1 2 # Bowel Movements 1 General Appearance: WD/WN HEENT: normocephalic Respiratory/Chest: chest wall non-tender, lungs clear Cardiovascular: normal peripheral pulses, normal rate Abdomen: normal bowel sounds Genitourinary: normal external genitalia Extremities: no cyanosis Microbiology Date/Time Source Procedure Growth Status 08/15/16 21:00 Leg Left Gram Stain - Final Resulted 08/15/16 21:00 Wound Culture - Preliminary Gram Negative Aston Resulted Laboratory Tests 08/17/16 06:30: White Blood Count 9.9, Red Blood Count 3.30L, Hemoglobin 9.3L, Hematocrit 29.9L , Mean Corpuscular Volume 91, Mean Corpuscular Hemoglobin 28.2, Mean Corpuscular Hemoglobin Concent 31.1L, Red Cell Distribution Width 15.6H, Platelet Count 335, Mean Platelet Volume 5.5L, Neutrophils (%) (Auto) 68.5, Lymphocytes (%) (Auto) 14.0L, Monocytes (%) (Auto) 14.3H, Eosinophils (%) (Auto ) 2.4, Basophils (%) (Auto) 0.9, Sodium Level 132L, Potassium Level 5.3H, Chloride Level 83L, Carbon Dioxide Level 28, Anion Gap 21H, Blood Urea Nitrogen 60H, Creatinine 7.8H, Estimat Glomerular Filtration Rate 8.7, Glucose Level 106 , Uric Acid 5.0, Calcium Level 10.4H, Phosphorus Level 6.3H, Magnesium Level 2.5 , Total Bilirubin 0.3, Aspartate Amino Transf (AST/SGOT) 24, Alanine Aminotransferase (ALT/SGPT) 11, Alkaline Phosphatase 102, C-Reactive Protein, Quantitative 21.3H, Pro-B-Type Natriuretic Peptide 23213I, Total Protein 9.1H, Albumin 3.9, Globulin 5.2, Albumin/Globulin Ratio 0.7L Current Medications Medications (Trade) Dose Ordered Sig/Hilary Route PRN Reason Start Time Stop Time Status Last Admin Dose Admin Acetaminophen (Tylenol) 650 mg Q4H PRN ORAL T>100.5 08/14/16 15:45 09/13/16 15:44 Acetaminophen/ Hydrocodone Bitart ([place] 10/325) 1 ea Q6H PRN ORAL Moderate Pain (Pain Scale 4-6) 08/14/16 19:06 08/21/16 19:05 Albuterol/ Ipratropium (DuoNeb 0.5-3(2.5)mg/3ml) 3 ml Q4H PRN HHN Shortness of Breath 08/14/16 15:45 08/19/16 15:44 Carvedilol (Coreg) 25 mg EVERY 12 HOURS ORAL 08/14/16 21:00 09/13/16 20:59 08/17/16 09:04 Cinacalcet (Sensipar) 90 mg DAILY ORAL 08/17/16 09:00 09/16/16 08:59 08/17/16 09:03 Clonidine HCl (Catapres) 0.1 mg Q4H PRN GT SBP > 160 08/15/16 13:45 09/14/16 13:44 Dextrose (Dextrose 50%) STAT PRN IV Hypoglycemia 08/14/16 15:45 09/13/16 15:44 Diphenhydramine HCl (Benadryl) 25 mg Q6H PRN ORAL Itching 08/16/16 20:30 09/15/16 20:29 08/17/16 05:32 Gabapentin (Neurontin) 100 mg DAILY ORAL 08/15/16 09:00 09/14/16 08:59 08/17/16 09:04 Heparin Sodium (Porcine) (Heparin 5000 units/ml) 5,000 units EVERY 12 HOURS SUBQ 08/14/16 21:00 09/13/16 20:59 08/17/16 09:05 Ibuprofen (Motrin) 600 mg Q8H PRN ORAL Mild Pain (Pain Scale 1-3) 08/14/16 16:05 09/13/16 15:44 Losartan Potassium (Cozaar) 50 mg DAILY ORAL 08/15/16 09:00 09/14/16 08:59 08/17/16 09:04 Methadone HCl (Methadone HCl) 5 mg BID ORAL 08/14/16 20:00 08/21/16 19:59 08/17/16 17:49 Morphine Sulfate (Morphine Sulfate) 6 mg Q3H PRN IVP Severe Pain (Pain Scale 7-10) 08/15/16 17:00 08/22/16 16:59 08/17/16 12:25 Nitroglycerin (Ntg) 0.4 mg Q5MIN X 3 DOSES PRN SL Prn Chest Pain 08/14/16 16:15 09/13/16 16:14 Ondansetron HCl (Zofran) 4 mg Q6H PRN IVP Nausea & Vomiting 08/14/16 15:45 09/13/16 15:44 Pantoprazole (Protonix) 40 mg EVERY 12 HOURS ORAL 08/15/16 11:45 09/14/16 11:44 08/17/16 09:03 Polyethylene Glycol (Miralax) 17 gm DAILYPRN PRN ORAL Constipation 08/14/16 15:45 09/13/16 15:44 Sevelamer Carbonate (Renvela) 2,400 mg THREE TIMES A DAY ORAL 08/17/16 13:00 09/16/16 12:59 08/17/16 17:50 Temazepam (Restoril) 15 mg HSPRN PRN ORAL Insomnia 08/14/16 21:00 08/21/16 20:59 08/16/16 22:56 ANGELICA PARSON August 17, 2016 19:02
[2016-08-18] VITALS: BP 115/66
[2016-08-18 04:00] VITALS: BP 116/79
--- NOTE | 2016-08-18 07:03 | Consultation ---
History of Present Illness General Date patient seen: August 18, 2016 Chief Complaint: Lower Extremity Injury Present Illness Allergies: Coded Allergies: No Known Allergies (Unverified , 08/31/15) Medication History Scheduled Amino Acids/Protein Hydrolys (Pro-Stat Liquid), 30 ML ORAL DAILY, (Reported) Ascorbic Acid* (Vitamin C*), 500 MG ORAL DAILY, (Reported) Aspirin (Aspirin EC), 81 MG ORAL DAILY, (Reported) Bisacodyl* (Dulcolax*), 5 MG ORAL BID, (Reported) Calcium Acetate (Calcium Acetate), 1,334 MG PO BID, (Reported) Calcium Acetate (Calcium Acetate), 667 MG PO TID, (Reported) Carvedilol* (Carvedilol*), 25 MG ORAL EVERY 12 HOURS, (Reported) Cefepime Hcl/D5w (Cefepime-Dextrose 1 Gm/50 Ml), 500 MG IVPB Q24H, (Reported) Cephalexin* (Keflex*), 500 MG ORAL EVERY 12 HOURS Cinacalcet* (Sensipar*), 30 MG ORAL DAILY, (Reported) Clonidine Hcl (Clonidine Hcl), 0.2 MG PO Q4HR, (Reported) Dextran 70/Hypromellose (Artificial Tears Eye Drops*), 1 DROP BOTH EYES BID, ( Reported) Famotidine (Famotidine), 20 MG ORAL BID, (Reported) Gabapentin* (Gabapentin*), 100 MG ORAL DAILY, (Reported) Heparin Sod (Porcine) (Heparin Sodium*), 5,000 UNITS SUBQ EVERY 12 HOURS, ( Reported) Hydroxyzine Hcl (Hydroxyzine Hcl), 50 MG PO EVERY 6 HOURS, (Reported) Losartan Potassium* (Losartan Potassium*), 100 MG ORAL DAILY, (Reported) Losartan Potassium* (Losartan Potassium*), 50 MG ORAL DAILY, (Reported) Methadone Hcl* (Methadone*), 5 MG PO DAILY, (Reported) Methadone Hcl* (Methadone*), 5 MG PO BID, (Reported) Nifedipine* (Nifedipine Er*), 90 MG ORAL DAILY, (Reported) Nifedipine* (Procardia*), 30 MG ORAL DAILY, (Reported) No Known Medications* (NKM - No Known Medications*), 0 ., (Reported) Sertraline Hcl* (Sertraline Hcl*), 50 MG ORAL DAILY, (Reported) Sevelamer Carbonate* (Renvela*), 2,400 MG ORAL THREE TIMES A DAY, (Reported) Vancomycin Hcl/D5w (Vancomycin-D5w 1 G/250 Ml), 0 IVPB pharmacy to dose, ( Reported) Vitamins A And D (Vitamin A And D), 1 APPLIC TOPIC EVERY 12 HOURS, (Reported) Zinc (Zinc), 220 MG ORAL DAILY, (Reported) Scheduled PRN Acetaminophen (Acetaminophen), 650 MG ORAL Q6H PRN for Prn Headache/Temp > 101, (Reported) Acetaminophen (Acetaminophen), 650 MG ORAL Q4H PRN for Fever/Headache/Mild Pain, (Reported) Clonidine HCl (Clonidine HCl), 0.2 MG GT for For High Blood Pressure, (Reported) Clonidine Hcl* (Catapres*), 0.1 MG ORAL EVERY 4 HOURS PRN for For High Blood Pressure, (Reported) Diphenhydramine Hcl (Diphenhydramine Hcl), 50 MG IVP Q6HR PRN for Itching, ( Reported) Diphenhydramine Hcl* (Benadryl*), 50 MG ORAL Q6H PRN for Itching, (Reported) Diphenhydramine Hcl* (Diphenhydramine Hcl*), 25 MG ORAL Q6H PRN for Itching, ( Reported) Guaifenesin/Dextromethorphan (Robitussin Cough-Chest Dm Liq), 10 ML PO EVERY 4 HOURS PRN for For Cough, (Reported) Hydrocodone Bit/Acetaminophen 10-325* (Hydrocodon-Acetaminophn 10-325*), 1 TAB ORAL Q6H PRN for Pain Scale (6-10), (Reported) Hydrocodone Bit/Acetaminophen 5-325* ([place] 5-325*), 1 TAB ORAL EVERY 8 HOURS PRN for For Pain, (Reported) Ibuprofen* (Motrin*), 600 MG ORAL Q8H PRN for For Pain, (Reported) Lorazepam* (Lorazepam*), 0.5 MG IV Q4H PRN for For Anxiety, (Reported) Morphine Sulfate (Morphine Sulfate), 1 MG IVP EVERY 4 HOURS PRN for Severe Pain (Pain Scale 7-10), (Reported) Ondansetron (Zofran), 4 MG ORAL Q6HR PRN for Nausea & Vomiting, (Reported) Ondansetron Hcl* (Zofran*), 4 MG IVP Q6H PRN for Nausea & Vomiting, (Reported) Polyethylene Glycol 3350* (Miralax*), 17 GM ORAL HS PRN for prn, (Reported) Zolpidem Tartrate* (Zolpidem Tartrate*), 5 MG ORAL BEDTIME PRN for Insomnia, ( Reported) Miscellaneous Medications Acetaminophen (Non-Aspirin Pain Relief), 650 MG PO, (Reported) Silver Sulfadiazine (Silver Sulfadiazine), 400 GM TP, (Reported) Patient History Healthcare decision maker pt A&Ox4 Resuscitation status Full Code Advanced Directive on File Physical Exam Last 24 Hour Vital Signs Date Time Temp Pulse Resp B/P Pulse Ox O2 Delivery O2 Flow Rate FiO2 08/18/16 04:00 97.0 91 18 116/79 92 Room Air 08/18/16 02:11 96.8 08/18/16 00:54 95 Room Air 08/18/16 00:24 96.8 08/18/16 00:00 97.0 84 20 115/66 90 Room Air 08/17/16 21:34 86 121/80 08/17/16 20:00 97.3 86 20 121/80 94 Room Air 08/17/16 19:20 72 18 Room Air 08/17/16 16:31 96.8 72 19 104/68 96 Room Air 08/17/16 12:11 97.9 81 18 141/70 97 Room Air 08/17/16 09:04 134/86 08/17/16 09:04 95 134/86 08/17/16 08:18 97.8 95 20 134/86 98 Room Air 08/17/16 07:41 100 18 Room Air Intake and Output 08/17/16 08/18/16 19:00 07:00 Intake Total 840 ml Balance 840 ml Intake Oral 840 ml # Voids 1 Height (Feet): 5 Height (Inches): 10.00 Weight (Pounds): 180 Medications Current Medications Medications (Trade) Dose Ordered Sig/Hilary Route PRN Reason Start Time Stop Time Status Last Admin Dose Admin Acetaminophen (Tylenol) 650 mg Q4H PRN ORAL T>100.5 08/14/16 15:45 09/13/16 15:44 Acetaminophen/ Hydrocodone Bitart ([place] 10/325) 1 ea Q6H PRN ORAL Moderate Pain (Pain Scale 4-6) 08/14/16 19:06 08/21/16 19:05 08/18/16 01:12 Albuterol/ Ipratropium (DuoNeb 0.5-3(2.5)mg/3ml) 3 ml Q4H PRN HHN Shortness of Breath 08/14/16 15:45 08/19/16 15:44 Carvedilol (Coreg) 25 mg EVERY 12 HOURS ORAL 08/14/16 21:00 09/13/16 20:59 08/17/16 21:34 Cinacalcet (Sensipar) 90 mg DAILY ORAL 08/17/16 09:00 09/16/16 08:59 08/17/16 09:03 Clonidine HCl (Catapres) 0.1 mg Q4H PRN GT SBP > 160 08/15/16 13:45 09/14/16 13:44 Dextrose (Dextrose 50%) STAT PRN IV Hypoglycemia 08/14/16 15:45 09/13/16 15:44 Diphenhydramine HCl (Benadryl) 25 mg Q6H PRN ORAL Itching 08/16/16 20:30 09/15/16 20:29 08/17/16 05:32 Gabapentin (Neurontin) 100 mg DAILY ORAL 08/15/16 09:00 09/14/16 08:59 08/17/16 09:04 Heparin Sodium (Porcine) (Heparin 5000 units/ml) 5,000 units EVERY 12 HOURS SUBQ 08/14/16 21:00 09/13/16 20:59 08/17/16 21:41 Ibuprofen (Motrin) 600 mg Q8H PRN ORAL Mild Pain (Pain Scale 1-3) 08/14/16 16:05 09/13/16 15:44 Losartan Potassium (Cozaar) 50 mg DAILY ORAL 08/15/16 09:00 09/14/16 08:59 08/17/16 09:04 Methadone HCl (Methadone HCl) 5 mg BID ORAL 08/14/16 20:00 08/21/16 19:59 08/17/16 17:49 Morphine Sulfate (Morphine Sulfate) 6 mg Q3H PRN IVP Severe Pain (Pain Scale 7-10) 08/15/16 17:00 08/22/16 16:59 08/17/16 23:54 Nitroglycerin (Ntg) 0.4 mg Q5MIN X 3 DOSES PRN SL Prn Chest Pain 08/14/16 16:15 09/13/16 16:14 Ondansetron HCl (Zofran) 4 mg Q6H PRN IVP Nausea & Vomiting 08/14/16 15:45 09/13/16 15:44 Pantoprazole (Protonix) 40 mg EVERY 12 HOURS ORAL 08/15/16 11:45 09/14/16 11:44 08/17/16 21:34 Polyethylene Glycol (Miralax) 17 gm DAILYPRN PRN ORAL Constipation 08/14/16 15:45 09/13/16 15:44 Sevelamer Carbonate (Renvela) 2,400 mg THREE TIMES A DAY ORAL 08/17/16 13:00 09/16/16 12:59 08/17/16 17:50 Temazepam (Restoril) 15 mg HSPRN PRN ORAL Insomnia 08/14/16 21:00 08/21/16 20:59 08/16/16 22:56 Assessment/Plan Assessment/Plan (1) ESRD of Dialysis (2) Non healing ulcer of right lower extremity (3) Intractable pain (4) Multiple joint arthritis (5) Peripheral vascular disease seen dictated JUSTUS MALDONADO August 18, 2016 07:03
[2016-08-18 07:41] LABS: BASOPHILS % (AUTO) 1.1 % (0.0-2.0); EOSINOPHILS % (AUTO) 3.3 % (0.0-3.0); LYMPHOCYTES % (AUTO) 18.8 % (20.0-45.0); MEAN CORPUSCULAR HEMOGLOBIN 28.4 PG (27.0-31.0); MEAN CORPUSCULAR HGB CONC 31.4 G/DL (32.0-36.0); MEAN CORPUSCULAR VOLUME 90 FL (80-99); MEAN PLATELET VOLUME 5.3 FL (6.5-10.1); NEUTROPHILS % (AUTO) 61.8 % (45.0-75.0); PLATELET COUNT 297 K/UL (150-450); RED BLOOD COUNT 2.97 M/UL (4.70-6.10); RED CELL DISTRIBUTION WIDTH 16.1 % (11.6-14.8); WHITE BLOOD COUNT 9.3 K/UL (4.8-10.8)
[2016-08-18 08:08] LABS: ALANINE AMINOTRANSFERASE 13 U/L (3-41); ALBUMIN/GLOBULIN RATIO 0.6 (1.0-2.7); ANION GAP 25 (5-15); ASPARTATE AMINO TRANSFERASE 24 U/L (5-40); CALCIUM 9.4 mg/dL (8.6-10.2); CARBON DIOXIDE 26 mEQ/L (20-30); CHLORIDE 83 mEQ/L (98-107); CREATININE 9.6 mg/dL (0.7-1.2); GLOMERULAR FILTRATION RATE 6.9 mL/min (>60); HEMOLYSIS 12; PHOSPHORUS 7.9 mg/dL (2.5-4.8); POTASSIUM 4.5 mEQ/L (3.4-4.9); SODIUM 134 mEQ/L (135-145); TOTAL PROTEIN 8.4 g/dL (6.6-8.7); URIC ACID 6.8 mg/dL (3.0-7.5)
[2016-08-18 08:09] VITALS: BP 135/86
[2016-08-18] MEDS: Sensipar 30mg Tab ORAL SCH (08:45)
[2016-08-18] MEDS: Losartan 50mg tab ORAL SCH (08:46)
[2016-08-18] MEDS: HYDROmorphone 1mg/ml Carpuject IVP PRN ×4 (08:47→23:31)
[2016-08-18] MEDS: Carvedilol 25mg Tab ORAL SCH ×2 (08:47→20:12)
[2016-08-18] MEDS: Heparin 5000 units/ml inj SUBQ SCH ×2 (08:52→20:15)
[2016-08-18] MEDS ORDERED: D5 1/2NS 1000ml IV ONE (09:01)
[2016-08-18 12:09] VITALS: BP 116/71
--- NOTE | 2016-08-18 14:10 | General Progress Note ---
Assessment/Plan Status: stable Assessment/Plan ESRD on HD M W Fr HTN Anemia Bilateral LE edema Methadone dependence Venous stasis dermatitis of both lower extremities Venous ulcer of right leg Necrotic eschar Plan: diet to renal HD done 08/16 next 08/19 Up dose Renvela Adjust BP meds- Vascular studies LEs, wound care per orders Subjective ROS Limited/Unobtainable: No Allergies: Coded Allergies: No Known Allergies (Unverified , 08/31/15) Objective Last 24 Hour Vital Signs Date Time Temp Pulse Resp B/P Pulse Ox O2 Delivery O2 Flow Rate FiO2 08/18/16 12:09 98.4 88 20 116/71 95 Room Air 08/18/16 09:17 97.0 08/18/16 08:47 101 135/86 08/18/16 08:46 135/86 08/18/16 08:09 101 20 135/86 92 Room Air 08/18/16 07:40 75 18 Room Air 08/18/16 04:00 97.0 91 18 116/79 92 Room Air 08/18/16 02:11 96.8 08/18/16 00:54 95 Room Air 08/18/16 00:24 96.8 08/18/16 00:00 97.0 84 20 115/66 90 Room Air 08/17/16 21:34 86 121/80 08/17/16 20:00 97.3 86 20 121/80 94 Room Air 08/17/16 19:20 72 18 Room Air 08/17/16 16:31 96.8 72 19 104/68 96 Room Air Intake and Output 08/17/16 08/18/16 19:00 07:00 Intake Total 840 ml Balance 840 ml Intake Oral 840 ml # Voids 1 Laboratory Tests 08/18/16 05:30: White Blood Count 9.3, Red Blood Count 2.97L, Hemoglobin 8.4L, Hematocrit 26.9L , Mean Corpuscular Volume 90, Mean Corpuscular Hemoglobin 28.4, Mean Corpuscular Hemoglobin Concent 31.4L, Red Cell Distribution Width 16.1H, Platelet Count 297, Mean Platelet Volume 5.3L, Neutrophils (%) (Auto) 61.8, Lymphocytes (%) (Auto) 18.8L, Monocytes (%) (Auto) 15.0H, Eosinophils (%) (Auto ) 3.3H, Basophils (%) (Auto) 1.1, Sodium Level 134L, Potassium Level 4.5, Chloride Level 83L, Carbon Dioxide Level 26, Anion Gap 25H, Blood Urea Nitrogen 86#H, Creatinine 9.6H, Estimat Glomerular Filtration Rate 6.9, Glucose Level 85 , Uric Acid 6.8, Calcium Level 9.4, Phosphorus Level 7.9H, Total Bilirubin < 0.2 , Aspartate Amino Transf (AST/SGOT) 24, Alanine Aminotransferase (ALT/SGPT) 13, Alkaline Phosphatase 99, Total Protein 8.4, Albumin 3.3L, Globulin 5.1, Albumin/ Globulin Ratio 0.6L Height (Feet): 5 Height (Inches): 10.00 Weight (Pounds): 180 General Appearance: no apparent distress Objective PE not changed ELSA RICHMOND August 18, 2016 14:10
[2016-08-18 15:44] VITALS: BP 120/75
--- NOTE | 2016-08-18 18:55 | Pulmonology Progress Note ---
Assessment/Plan Problems: (1) Necrotic eschar (2) ESRD (end stage renal disease) on dialysis (3) Cellulitis (4) Methadone dependence (5) Venous ulcer of leg Assessment/Plan off abx HD check electrolytes symptomatic treatment pain management Subjective ROS Limited/Unobtainable: No Allergies: Coded Allergies: No Known Allergies (Unverified , 08/31/15) Objective Last 24 Hour Vital Signs Date Time Temp Pulse Resp B/P Pulse Ox O2 Delivery O2 Flow Rate FiO2 08/18/16 17:27 98.0 08/18/16 15:44 98.0 85 20 120/75 98 Room Air 08/18/16 12:09 98.4 88 20 116/71 95 Room Air 08/18/16 08:47 101 135/86 08/18/16 08:46 135/86 08/18/16 08:09 101 20 135/86 92 Room Air 08/18/16 07:40 75 18 Room Air 08/18/16 04:00 97.0 91 18 116/79 92 Room Air 08/18/16 02:11 96.8 08/18/16 00:54 95 Room Air 08/18/16 00:24 96.8 08/18/16 00:00 97.0 84 20 115/66 90 Room Air 08/17/16 21:34 86 121/80 08/17/16 20:00 97.3 86 20 121/80 94 Room Air 08/17/16 19:20 72 18 Room Air Intake and Output 08/17/16 08/18/16 18:59 06:59 Intake Total 840 ml Balance 840 ml Intake Oral 840 ml # Voids 1 Objective HEENT: normocephalic, atraumatic Respiratory/Chest: chest wall non-tender, lungs clear Cardiovascular: normal peripheral pulses, normal rate Abdomen: normal bowel sounds, soft, non tender Genitourinary: normal external genitalia Extremities: no cyanosis Skin: no rash Microbiology Date/Time Source Procedure Growth Status 08/15/16 21:00 Leg Left Gram Stain - Final Complete 08/15/16 21:00 Wound Culture - Final Pseudomonas Aeruginosa Staphylococcus Sp Coag Neg Diphtheroids Complete Laboratory Tests 08/18/16 05:30: White Blood Count 9.3, Red Blood Count 2.97L, Hemoglobin 8.4L, Hematocrit 26.9L , Mean Corpuscular Volume 90, Mean Corpuscular Hemoglobin 28.4, Mean Corpuscular Hemoglobin Concent 31.4L, Red Cell Distribution Width 16.1H, Platelet Count 297, Mean Platelet Volume 5.3L, Neutrophils (%) (Auto) 61.8, Lymphocytes (%) (Auto) 18.8L, Monocytes (%) (Auto) 15.0H, Eosinophils (%) (Auto ) 3.3H, Basophils (%) (Auto) 1.1, Sodium Level 134L, Potassium Level 4.5, Chloride Level 83L, Carbon Dioxide Level 26, Anion Gap 25H, Blood Urea Nitrogen 86#H, Creatinine 9.6H, Estimat Glomerular Filtration Rate 6.9, Glucose Level 85 , Uric Acid 6.8, Calcium Level 9.4, Phosphorus Level 7.9H, Total Bilirubin < 0.2 , Aspartate Amino Transf (AST/SGOT) 24, Alanine Aminotransferase (ALT/SGPT) 13, Alkaline Phosphatase 99, Total Protein 8.4, Albumin 3.3L, Globulin 5.1, Albumin/ Globulin Ratio 0.6L Current Medications Medications (Trade) Dose Ordered Sig/Hilary Route PRN Reason Start Time Stop Time Status Last Admin Dose Admin Acetaminophen (Tylenol) 650 mg Q4H PRN ORAL T>100.5 08/14/16 15:45 09/13/16 15:44 Acetaminophen/ Hydrocodone Bitart ([place] 10/325) 1 ea Q6H PRN ORAL Moderate Pain (Pain Scale 4-6) 08/14/16 19:06 08/21/16 19:05 08/18/16 01:12 Albuterol/ Ipratropium (DuoNeb 0.5-3(2.5)mg/3ml) 3 ml Q4H PRN HHN Shortness of Breath 08/14/16 15:45 08/19/16 15:44 Carvedilol (Coreg) 25 mg EVERY 12 HOURS ORAL 08/14/16 21:00 09/13/16 20:59 08/18/16 08:47 Cinacalcet (Sensipar) 90 mg DAILY ORAL 08/17/16 09:00 09/16/16 08:59 08/18/16 08:45 Clonidine HCl (Catapres) 0.1 mg Q4H PRN GT SBP > 160 08/15/16 13:45 09/14/16 13:44 Dextrose (Dextrose 50%) STAT PRN IV Hypoglycemia 08/14/16 15:45 09/13/16 15:44 Diphenhydramine HCl (Benadryl) 25 mg Q6H PRN ORAL Itching 08/16/16 20:30 09/15/16 20:29 08/17/16 05:32 Gabapentin (Neurontin) 100 mg DAILY ORAL 08/15/16 09:00 09/14/16 08:59 08/18/16 08:46 Heparin Sodium (Porcine) (Heparin 5000 units/ml) 5,000 units EVERY 12 HOURS SUBQ 08/14/16 21:00 09/13/16 20:59 08/18/16 08:52 Hydromorphone HCl (Dilaudid) 1 mg Q3H PRN IVP For Severe Pain 08/18/16 07:00 08/25/16 06:59 08/18/16 16:57 Ibuprofen (Motrin) 600 mg Q8H PRN ORAL Mild Pain (Pain Scale 1-3) 08/14/16 16:05 09/13/16 15:44 Losartan Potassium (Cozaar) 50 mg DAILY ORAL 08/15/16 09:00 09/14/16 08:59 08/18/16 08:46 Methadone HCl (Methadone HCl) 5 mg BID ORAL 08/14/16 20:00 08/21/16 19:59 08/18/16 16:53 Nitroglycerin (Ntg) 0.4 mg Q5MIN X 3 DOSES PRN SL Prn Chest Pain 08/14/16 16:15 09/13/16 16:14 Ondansetron HCl (Zofran) 4 mg Q6H PRN IVP Nausea & Vomiting 08/14/16 15:45 09/13/16 15:44 Pantoprazole (Protonix) 40 mg EVERY 12 HOURS ORAL 08/15/16 11:45 09/14/16 11:44 08/18/16 08:47 Polyethylene Glycol (Miralax) 17 gm DAILYPRN PRN ORAL Constipation 08/14/16 15:45 09/13/16 15:44 Sevelamer Carbonate (Renvela) 3,200 mg THREE TIMES A DAY ORAL 08/18/16 09:00 09/17/16 08:59 5/28/17 16:54 Temazepam (Restoril) 15 mg HSPRN PRN ORAL Insomnia 08/14/16 21:00 08/21/16 20:59 08/16/16 22:56 ANGELICA PARSON August 18, 2016 18:54
--- NOTE | 2016-08-18 19:15 | Consultation ---
DATE OF CONSULTATION: 08/18/2016 PAIN MANAGEMENT CONSULTATION CONSULTING PHYSICIAN: Norm Byrne M.D. REFERRING PHYSICIAN: Jeremi Henderson M.D. PHYSICIAN PATTERN LEASE INSPECTOR: Josh Gonzalez CHIEF COMPLAINT: Generalized body pain. HISTORY OF PRESENT ILLNESS: This is a 56-year-old male, who is being seen on the Med/Surg floor of [facility] for initial comprehensive pain management consultation. The patient has end-stage renal disease, peripheral vascular disease, and history of DVT with chronic pain in his lower extremities, back, and shoulders as an outpatient. The patient is living in a alf under the care of Dr. Henderson, taking methadone most recently 10 mg twice a day with [place] 10/325 one tablet every 4 hours as needed for breakthrough pain, was admitted to the [facility] under the care of Dr. Henderson due to right lower extremity wound, which is nonhealing, getting worse, turned black two days ago, reporting that his pain was 10/10, and now is being seen an Infectious Disease. We were consulted so that the patient would have adequate pain control while here in the hospital. PAST MEDICAL HISTORY: End-stage renal disease, , chronic pain, and MRSA and VRE cellulitis. MEDICATIONS: Cefepime and vancomycin. ALLERGIES: No known drug allergies. SOCIAL HISTORY: Denies smoking, drinking alcohol, or drug abuse. REVIEW OF SYSTEMS: Denies rash, fever, chills, sweating, dizziness, drowsiness, blurred vision, sore throat, or change in weight. No shortness of breath or chest pain. No nausea, vomiting, diarrhea or blood in the stool or urine. No bowel or bladder incontinence. He is complaining of generalized body pain. PHYSICAL EXAMINATION: GENERAL: Alert, awake, and oriented. VITAL SIGNS: Blood pressure 116/59, heart rate 91, oxygen saturation is 92%, respiratory rate 18, and temperature 97 degrees Fahrenheit. Height is 5 feet 10 inches and weight is 180 pounds. HEENT: PERRLA. NECK: Range of motion is decreased due to the patient's clinical condition with tenderness to paracervical muscles. No adenopathy LUNGS: Decreased breath sounds bilaterally. HEART: Regular. ABDOMEN: Obese. BACK: Range of motion is decreased in flexion and extension with tenderness to paraspinal muscles. No tenderness to trapezius or rhomboid muscles. EXTREMITIES: Upper extremity range of motion is decreased due to the patient's clinical condition. Motor is intact. No cyanosis. No clubbing. No edema. Sensory is intact. Reflexes are not obtainable. No adenopathy. Lower extremity range of motion is decreased due to the patient's clinical condition. Motor is reduced to 4/5 in all muscles bilaterally. No cyanosis. There is severe edema noted in bilateral lower extremities. Necrotic wound noted on the right jackson with bandages applied and tenderness to palpation. Sensory is reduced. Reflexes are unobtainable. No adenopathy. ASSESSMENT AND PLAN: This is a 56-year-old male with end-stage renal disease, on hemodialysis, nonhealing ulcer of the right lower extremity, intractable pain, multiple joint arthritis, and peripheral vascular disease. The patient will be continued on methadone 5 mg tablet twice a day and [place] 10/325 one tablet every 6 hours as needed for moderate pain. We will discontinue the morphine and start the patient on Dilaudid 1 mg IV every 4 hours as needed for severe pain. The patient was discussed with Dr. Byrne and Dr. Byrne concurred. We will follow the patient. Thank you very much for the courtesy of this consultation. Norm Byrne M.D. NAVNEET Gonzalez DR: DARRON JOB#: [id number] CC:
[2016-08-18 20:00] VITALS: BP 132/77
[2016-08-19] VITALS: BP 116/75
[2016-08-19] MEDS: HYDROmorphone 1mg/ml Carpuject IVP PRN ×7 (03:20→23:50)
[2016-08-19 04:00] VITALS: BP 125/78
--- NOTE | 2016-08-19 07:44 | General Progress Note ---
Assessment/Plan Assessment/Plan (1) ESRD of Dialysis (2) Non healing ulcer of right lower extremity (3) Intractable pain (4) Multiple joint arthritis (5) Peripheral vascular disease The patient will be continued on methadone, [place] and Dilaudid. The patient was discussed with Dr. Byrne and Dr. Byrne concurred. Subjective Date patient seen: August 19, 2016 Time patient seen: 07:15 - am Allergies: Coded Allergies: No Known Allergies (Unverified , 08/31/15) Subjective REVIEW OF SYSTEMS: Denies rash, fever, chills, sweating, dizziness, drowsiness, blurred vision, sore throat, or change in weight. No shortness of breath or chest pain. No nausea, vomiting, diarrhea or blood in the stool or urine. No bowel or bladder incontinence. He is complaining of generalized body pain. SUBJECTIVE: Patient is sitting up in chair and is in no acute distress. His pain has been reduced with the Dilaudid for a 9/10 to a 6/10 and is more comfortable. Objective Last 24 Hour Vital Signs Date Time Temp Pulse Resp B/P Pulse Ox O2 Delivery O2 Flow Rate FiO2 08/19/16 04:00 97.5 82 20 125/78 91 Room Air 08/19/16 00:00 96.9 75 18 116/75 92 Room Air 08/18/16 23:00 80 18 Room Air 08/18/16 20:51 96.8 08/18/16 20:12 82 132/77 08/18/16 20:00 96.8 82 18 132/77 94 Room Air 08/18/16 15:44 98.0 85 20 120/75 98 Room Air 08/18/16 12:09 98.4 88 20 116/71 95 Room Air 08/18/16 08:47 101 135/86 08/18/16 08:46 135/86 08/18/16 08:09 101 20 135/86 92 Room Air Intake and Output 08/18/16 08/19/16 19:00 07:00 Intake Total 1080 ml Balance 1080 ml Intake Oral 1080 ml # Voids 1 # Bowel Movements 2 Laboratory Tests 08/18/16 21:50: Urine Opiates Screen PositiveH, Urine Barbiturates Screen Negative, Phencyclidine (PCP) Screen Negative, Urine Amphetamines Screen Negative, Urine Benzodiazepines Screen Negative, Urine Cocaine Screen Negative, Urine Marijuana (THC) Screen Negative Height (Feet): 5 Height (Inches): 10.00 Weight (Pounds): 180 Objective GENERAL: Alert, awake, and oriented. HEENT: PERRLA. NECK: Range of motion is decreased due to the patient's clinical condition with tenderness to paracervical muscles. No adenopathy LUNGS: Decreased breath sounds bilaterally. HEART: Regular. ABDOMEN: Obese. BACK: Range of motion is decreased in flexion and extension with tenderness to paraspinal muscles. No tenderness to trapezius or rhomboid muscles. EXTREMITIES: No cyanosis. There is severe edema noted in bilateral lower extremities. Necrotic wound noted on the right jackson with bandages applied and tenderness to palpation. NERUO: No changes. JUSTUS MALDONADO August 19, 2016 07:44
[2016-08-19 08:00] VITALS: BP 135/83
[2016-08-19] MEDS: Heparin 5000 units/ml inj SUBQ SCH ×2 (09:00→21:12)
[2016-08-19] MEDS: Losartan 50mg tab ORAL SCH (09:00)
[2016-08-19] MEDS: Carvedilol 25mg Tab ORAL SCH ×2 (09:00→21:12)
[2016-08-19] MEDS: Sensipar 30mg Tab ORAL SCH (09:59)
[2016-08-19 12:00] VITALS: BP_SYST 127; BP_SYST 159; BP_DIAS 80; BP_DIAS 83
--- NOTE | 2016-08-19 12:01 | General Progress Note ---
Assessment/Plan Status: stable Assessment/Plan ESRD on HD M W Fr HTN Anemia Bilateral LE edema Methadone dependence Venous stasis dermatitis of both lower extremities Venous ulcer of right leg Necrotic eschar Plan: diet to renal HD 08/19 Up dose Renvela Adjust BP meds- Vascular studies LEs, wound care per orders Subjective ROS Limited/Unobtainable: No Allergies: Coded Allergies: No Known Allergies (Unverified , 08/31/15) Objective Last 24 Hour Vital Signs Date Time Temp Pulse Resp B/P Pulse Ox O2 Delivery O2 Flow Rate FiO2 08/19/16 10:30 97.0 08/19/16 09:34 81 16 Room Air 08/19/16 08:00 97.0 85 18 135/83 90 Room Air 08/19/16 04:00 97.5 82 20 125/78 91 Room Air 08/19/16 00:00 96.9 75 18 116/75 92 Room Air 08/18/16 23:00 80 18 Room Air 08/18/16 20:12 82 132/77 08/18/16 20:00 96.8 82 18 132/77 94 Room Air 08/18/16 15:44 98.0 85 20 120/75 98 Room Air 08/18/16 12:09 98.4 88 20 116/71 95 Room Air Intake and Output 08/18/16 08/19/16 19:00 07:00 Intake Total 1080 ml Balance 1080 ml Intake Oral 1080 ml # Voids 1 # Bowel Movements 2 Laboratory Tests 08/18/16 21:50: Urine Opiates Screen PositiveH, Urine Barbiturates Screen Negative, Phencyclidine (PCP) Screen Negative, Urine Amphetamines Screen Negative, Urine Benzodiazepines Screen Negative, Urine Cocaine Screen Negative, Urine Marijuana (THC) Screen Negative Height (Feet): 5 Height (Inches): 10.00 Weight (Pounds): 180 General Appearance: no apparent distress Objective PE not changed ELSA RICHMOND August 19, 2016 12:01
--- NOTE | 2016-08-19 12:49 | Infectious Diseases Prog Note ---
Assessment/Plan Assessment/Plan ASSESSMENT: 55 y/o male with: // no evid of wound infection and cellulitis - doppler(-) DVT // Leukocytosis, SP , afebrile // Wnd cx : colonization // ESRD / HD with RUE AVF // Isolated ALP elevation - GGT WNL // Elevated CRP // Chronic pain syndrome, on methadone // h/o MRSA, VRE colonization // NKDA // Full Code PLAN: - monitor pt off of AB Rx ( 08/15 SP DC on IV vancomycin, cefepime d # 1 ) - monitor CBC, temperatures - monitor BMP - wound care Subjective Constitutional: Denies: anorexia, chills, drenching sweats, fatigue, fever, no symptoms, other Allergies: Coded Allergies: No Known Allergies (Unverified , 08/31/15) Objective Vital Signs Last 24 Hour Vital Signs Date Time Temp Pulse Resp B/P Pulse Ox O2 Delivery O2 Flow Rate FiO2 08/19/16 10:30 97.0 08/19/16 10:20 Room Air 08/19/16 09:34 81 16 Room Air 08/19/16 08:00 97.0 85 18 135/83 90 Room Air 08/19/16 04:00 97.5 82 20 125/78 91 Room Air 08/19/16 00:00 96.9 75 18 116/75 92 Room Air 08/18/16 23:00 80 18 Room Air 08/18/16 20:12 82 132/77 08/18/16 20:00 96.8 82 18 132/77 94 Room Air 08/18/16 15:44 98.0 85 20 120/75 98 Room Air Height (Feet): 5 Height (Inches): 10.00 Weight (Pounds): 180 HEENT: PERRL Respiratory/Chest: no accessory muscle use Cardiovascular: no gallop/murmur Abdomen: non distended Extremities: no clubbing Laboratory Tests Test 08/18/16 21:50 Urine Opiates Screen Positive (NEGATIVE) H Urine Barbiturates Screen Negative (NEGATIVE) Phencyclidine (PCP) Screen Negative (NEGATIVE) Urine Amphetamines Screen Negative (NEGATIVE) Urine Benzodiazepines Screen Negative (NEGATIVE) Urine Cocaine Screen Negative (NEGATIVE) Urine Marijuana (THC) Screen Negative (NEGATIVE) Current Medications Medications (Trade) Dose Ordered Sig/Hilary Route PRN Reason Start Time Stop Time Status Last Admin Dose Admin Acetaminophen (Tylenol) 650 mg Q4H PRN ORAL T>100.5 08/14/16 15:45 09/13/16 15:44 Acetaminophen/ Hydrocodone Bitart ([place] 10/325) 1 ea Q6H PRN ORAL Moderate Pain (Pain Scale 4-6) 08/14/16 19:06 08/21/16 19:05 08/18/16 01:12 Albuterol/ Ipratropium (DuoNeb 0.5-3(2.5)mg/3ml) 3 ml Q4H PRN HHN Shortness of Breath 08/14/16 15:45 08/19/16 15:44 Carvedilol (Coreg) 25 mg EVERY 12 HOURS ORAL 08/14/16 21:00 09/13/16 20:59 08/18/16 20:12 Cinacalcet (Sensipar) 90 mg DAILY ORAL 08/17/16 09:00 09/16/16 08:59 08/19/16 09:59 Clonidine HCl (Catapres) 0.1 mg Q4H PRN GT SBP > 160 08/15/16 13:45 09/14/16 13:44 Dextrose (Dextrose 50%) STAT PRN IV Hypoglycemia 08/14/16 15:45 09/13/16 15:44 Diphenhydramine HCl (Benadryl) 25 mg Q6H PRN ORAL Itching 08/16/16 20:30 09/15/16 20:29 08/17/16 05:32 Gabapentin (Neurontin) 100 mg DAILY ORAL 08/15/16 09:00 09/14/16 08:59 08/19/16 09:59 Heparin Sodium (Porcine) (Heparin 5000 units/ml) 5,000 units EVERY 12 HOURS SUBQ 08/14/16 21:00 09/13/16 20:59 08/19/16 09:00 Hydromorphone HCl (Dilaudid) 1 mg Q3H PRN IVP For Severe Pain 08/18/16 07:00 08/25/16 06:59 08/19/16 12:45 Ibuprofen (Motrin) 600 mg Q8H PRN ORAL Mild Pain (Pain Scale 1-3) 08/14/16 16:05 09/13/16 15:44 Losartan Potassium (Cozaar) 50 mg DAILY ORAL 08/15/16 09:00 09/14/16 08:59 08/18/16 08:46 Methadone HCl (Methadone HCl) 5 mg BID ORAL 08/14/16 20:00 08/21/16 19:59 08/19/16 11:00 Nitroglycerin (Ntg) 0.4 mg Q5MIN X 3 DOSES PRN SL Prn Chest Pain 08/14/16 16:15 09/13/16 16:14 Ondansetron HCl (Zofran) 4 mg Q6H PRN IVP Nausea & Vomiting 08/14/16 15:45 09/13/16 15:44 Pantoprazole (Protonix) 40 mg EVERY 12 HOURS ORAL 08/15/16 11:45 09/14/16 11:44 08/19/16 09:59 Polyethylene Glycol (Miralax) 17 gm DAILYPRN PRN ORAL Constipation 08/14/16 15:45 09/13/16 15:44 Sevelamer Carbonate (Renvela) 3,200 mg THREE TIMES A DAY ORAL 08/18/16 09:00 09/17/16 08:59 08/19/16 09:59 Temazepam (Restoril) 15 mg HSPRN PRN ORAL Insomnia 08/14/16 21:00 08/21/16 20:59 08/16/16 22:56 KHOA ADAME M.D. August 19, 2016 12:49
[2016-08-19 16:00] VITALS: BP 132/91
[2016-08-19 20:02] VITALS: BP 133/77
--- NOTE | 2016-08-19 22:48 | Pulmonology Progress Note ---
Assessment/Plan Problems: (1) Necrotic eschar (2) ESRD (end stage renal disease) on dialysis (3) Cellulitis (4) Methadone dependence (5) Venous ulcer of leg Assessment/Plan off abx HD check electrolytes symptomatic treatment pain management check arterial study BILATERAL: Common femoral artery waveform analysis is within normal limits at rest. Color flow duplex sonography reveals diffuse calcification throughout the superficial femoral and popliteal arteries. There is no evidence of stenosis or occlusion within these segments. The tibioperoneal trunk were patent. The Doppler tibial artery waveform analysis is compatible with moderate ischemia at rest. Subjective ROS Limited/Unobtainable: No Allergies: Coded Allergies: No Known Allergies (Unverified , 08/31/15) Objective Last 24 Hour Vital Signs Date Time Temp Pulse Resp B/P Pulse Ox O2 Delivery O2 Flow Rate FiO2 08/19/16 21:12 105 133/77 08/19/16 20:11 97.9 08/19/16 20:09 105 18 Room Air 08/19/16 20:02 97.9 115 22 133/77 97 Room Air 08/19/16 16:00 98.2 109 18 132/91 97 Room Air 08/19/16 14:21 Room Air 95.0 21 08/19/16 14:20 Room Air 95.0 21 08/19/16 12:00 98.1 67 20 127/83 96 Room Air 08/19/16 10:20 Room Air 08/19/16 09:34 81 16 Room Air 08/19/16 08:00 97.0 85 18 135/83 90 Room Air 08/19/16 04:00 97.5 82 20 125/78 91 Room Air 08/19/16 00:00 96.9 75 18 116/75 92 Room Air 08/18/16 23:00 80 18 Room Air Intake and Output 08/18/16 08/19/16 19:00 07:00 Intake Total 1080 ml Balance 1080 ml Intake Oral 1080 ml # Voids 1 # Bowel Movements 2 General Appearance: WD/WN HEENT: normocephalic, atraumatic Respiratory/Chest: chest wall non-tender, lungs clear Cardiovascular: normal peripheral pulses, normal rate Abdomen: normal bowel sounds Genitourinary: normal external genitalia Extremities: no cyanosis Current Medications Medications (Trade) Dose Ordered Sig/Hilary Route PRN Reason Start Time Stop Time Status Last Admin Dose Admin Acetaminophen (Tylenol) 650 mg Q4H PRN ORAL T>100.5 08/14/16 15:45 09/13/16 15:44 Acetaminophen/ Hydrocodone Bitart ([place] 10/325) 1 ea Q6H PRN ORAL Moderate Pain (Pain Scale 4-6) 08/14/16 19:06 08/21/16 19:05 08/18/16 01:12 Carvedilol (Coreg) 25 mg EVERY 12 HOURS ORAL 08/14/16 21:00 09/13/16 20:59 08/19/16 21:12 Cinacalcet (Sensipar) 90 mg DAILY ORAL 08/17/16 09:00 09/16/16 08:59 08/19/16 09:59 Clonidine HCl (Catapres) 0.1 mg Q4H PRN GT SBP > 160 08/15/16 13:45 09/14/16 13:44 Dextrose (Dextrose 50%) STAT PRN IV Hypoglycemia 08/14/16 15:45 09/13/16 15:44 Diphenhydramine HCl (Benadryl) 25 mg Q6H PRN ORAL Itching 08/16/16 20:30 09/15/16 20:29 08/17/16 05:32 Gabapentin (Neurontin) 100 mg DAILY ORAL 08/15/16 09:00 09/14/16 08:59 08/19/16 09:59 Heparin Sodium (Porcine) (Heparin 5000 units/ml) 5,000 units EVERY 12 HOURS SUBQ 08/14/16 21:00 09/13/16 20:59 08/19/16 21:12 Hydromorphone HCl (Dilaudid) 1 mg Q3H PRN IVP For Severe Pain 08/18/16 07:00 08/25/16 06:59 08/19/16 19:40 Ibuprofen (Motrin) 600 mg Q8H PRN ORAL Mild Pain (Pain Scale 1-3) 08/14/16 16:05 09/13/16 15:44 Losartan Potassium (Cozaar) 50 mg DAILY ORAL 08/15/16 09:00 09/14/16 08:59 08/18/16 08:46 Methadone HCl (Methadone HCl) 5 mg BID ORAL 08/14/16 20:00 08/21/16 19:59 08/19/16 17:45 Nitroglycerin (Ntg) 0.4 mg Q5MIN X 3 DOSES PRN SL Prn Chest Pain 08/14/16 16:15 09/13/16 16:14 Ondansetron HCl (Zofran) 4 mg Q6H PRN IVP Nausea & Vomiting 08/14/16 15:45 09/13/16 15:44 Pantoprazole (Protonix) 40 mg EVERY 12 HOURS ORAL 08/15/16 11:45 09/14/16 11:44 08/19/16 21:12 Polyethylene Glycol (Miralax) 17 gm DAILYPRN PRN ORAL Constipation 08/14/16 15:45 09/13/16 15:44 Sevelamer Carbonate (Renvela) 3,200 mg THREE TIMES A DAY ORAL 08/18/16 09:00 09/17/16 08:59 08/19/16 17:45 Temazepam (Restoril) 15 mg HSPRN PRN ORAL Insomnia 08/14/16 21:00 08/21/16 20:59 08/16/16 22:56 ANGELICA PARSON August 19, 2016 22:48
[2016-08-20 00:08] VITALS: BP 130/72
[2016-08-20] MEDS: HYDROmorphone 1mg/ml Carpuject IVP PRN ×4 (03:09→16:25)
[2016-08-20 04:08] VITALS: BP 92/66
[2016-08-20 06:56] LABS: MEAN CORPUSCULAR HEMOGLOBIN 27.9 PG (27.0-31.0); MEAN CORPUSCULAR HGB CONC 30.9 G/DL (32.0-36.0); MEAN CORPUSCULAR VOLUME 90 FL (80-99); MEAN PLATELET VOLUME 5.5 FL (6.5-10.1); PLATELET COUNT 307 K/UL (150-450); RED BLOOD COUNT 2.81 M/UL (4.70-6.10); RED CELL DISTRIBUTION WIDTH 15.6 % (11.6-14.8); WHITE BLOOD COUNT 8.1 K/UL (4.8-10.8)
[2016-08-20 07:03] LABS: ALBUMIN/GLOBULIN RATIO 0.8 (1.0-2.7); CALCIUM 9.3 mg/dL (8.6-10.2); CREATININE 10.7 mg/dL (0.7-1.2); CRP QUANT 9.6 mg/dL (< 0.5); GLOMERULAR FILTRATION RATE 6.1 mL/min (>60); MAGNESIUM 2.6 mg/dL (1.7-2.5); PHOSPHORUS 6.6 mg/dL (2.5-4.8); POTASSIUM 4.9 mEQ/L (3.4-4.9); TOTAL PROTEIN 8.3 g/dL (6.6-8.7); URIC ACID 6.6 mg/dL (3.0-7.5)
--- NOTE | 2016-08-20 07:43 | General Progress Note ---
Assessment/Plan Assessment/Plan (1) ESRD of Dialysis (2) Non healing ulcer of right lower extremity (3) Intractable pain (4) Multiple joint arthritis (5) Peripheral vascular disease The patient will be continued on methadone, [place] and Dilaudid. The patient was discussed with Dr. Byrne and Dr. Byrne concurred. Subjective Date patient seen: August 20, 2016 Time patient seen: 07:00 - am Allergies: Coded Allergies: No Known Allergies (Unverified , 08/31/15) Subjective REVIEW OF SYSTEMS: Denies rash, fever, chills, sweating, dizziness, drowsiness, blurred vision, sore throat, or change in weight. No shortness of breath or chest pain. No nausea, vomiting, diarrhea or blood in the stool or urine. No bowel or bladder incontinence. He is complaining of generalized body pain. SUBJECTIVE: Patient is sitting up in chair pain is tolerated on the medication requesting 7 doses of Dilaudid and receiving the methadone as scheduled in the last 24 hrs. Objective Last 24 Hour Vital Signs Date Time Temp Pulse Resp B/P Pulse Ox O2 Delivery O2 Flow Rate FiO2 08/20/16 04:08 98.1 84 20 92/66 93 Room Air 08/20/16 03:43 96.5 08/20/16 00:08 96.5 103 18 130/72 95 Room Air 08/19/16 21:12 105 133/77 08/19/16 20:09 105 18 Room Air 08/19/16 20:02 97.9 115 22 133/77 97 Room Air 08/19/16 16:00 98.2 109 18 132/91 97 Room Air 08/19/16 14:21 Room Air 95.0 21 08/19/16 14:20 Room Air 95.0 21 08/19/16 12:00 98.1 67 20 127/83 96 Room Air 08/19/16 10:20 Room Air 08/19/16 09:34 81 16 Room Air 08/19/16 08:00 97.0 85 18 135/83 90 Room Air Intake and Output 08/19/16 08/20/16 19:00 07:00 Intake Total 600 ml Output Total 3100 ml Balance -2500 ml Intake Oral 600 ml Hemodialysis UF 3100 ml # Voids 2 2 # Bowel Movements 2 Laboratory Tests 08/20/16 05:35: White Blood Count 8.1, Red Blood Count 2.81L, Hemoglobin 7.8L, Hematocrit 25.4L , Mean Corpuscular Volume 90, Mean Corpuscular Hemoglobin 27.9, Mean Corpuscular Hemoglobin Concent 30.9L, Red Cell Distribution Width 15.6H, Platelet Count 307, Mean Platelet Volume 5.5L, Neutrophils (%) (Auto) , Lymphocytes (%) (Auto) , Monocytes (%) (Auto) , Eosinophils (%) (Auto) , Basophils (%) (Auto) , Neutrophils % (Manual) [Pending], Lymphocytes % (Manual) [Pending], Platelet Estimate [Pending], Platelet Morphology [Pending], Sodium Level 133L, Potassium Level 4.9, Chloride Level 86L, Carbon Dioxide Level 30, Anion Gap 17H, Blood Urea Nitrogen 86H, Creatinine 10.7H, Estimat Glomerular Filtration Rate 6.1, Glucose Level 109H, Uric Acid 6.6, Calcium Level 9.3, Phosphorus Level 6.6H, Magnesium Level 2.6H, Total Bilirubin 0.3, Aspartate Amino Transf (AST/SGOT) 18, Alanine Aminotransferase (ALT/SGPT) 12, Alkaline Phosphatase 92, C-Reactive Protein, Quantitative 9.6H, Pro-B-Type Natriuretic Peptide 40135I, Total Protein 8.3, Albumin 3.7, Globulin 4.6, Albumin/Globulin Ratio 0.8L Height (Feet): 5 Height (Inches): 10.00 Weight (Pounds): 180 Objective GENERAL: Alert, awake, and oriented. HEENT: PERRLA. NECK: Range of motion is decreased due to the patient's clinical condition with tenderness to paracervical muscles. No adenopathy LUNGS: Decreased breath sounds bilaterally. HEART: Regular. ABDOMEN: Obese. BACK: Range of motion is decreased in flexion and extension with tenderness to paraspinal muscles. No tenderness to trapezius or rhomboid muscles. EXTREMITIES: No cyanosis. There is severe edema noted in bilateral lower extremities. Necrotic wound noted on the right jackson with bandages applied and tenderness to palpation. NERUO: No changes. JUSTUS MALDONADO August 20, 2016 07:43
[2016-08-20] MEDS ORDERED: Norco 10mg/325mg tab ORAL PRN (08:00)
[2016-08-20] MEDS: Losartan 50mg tab ORAL SCH (09:00)
[2016-08-20] MEDS: Carvedilol 25mg Tab ORAL SCH (09:00)
[2016-08-20] MEDS: Sensipar 30mg Tab ORAL SCH (09:13)
[2016-08-20 09:16] LABS: ANISOCYTOSIS 1+; BAND NEUTROPHILS % (MANUAL) 0 % (0-8); BASOPHILS % (MANUAL) 0 % (0-2); EOSINOPHILS % (MANUAL) 0 % (0-3); HYPOCHROMASIA 1+; LYMPHOCYTES % (MANUAL) 14 % (20-45); NEUTROPHILS % (MANUAL) 77 % (45-75); PLATELET ESTIMATE ADEQUATE; PLATELET MORPHOLOGY NORMAL; TOTAL CELLS COUNTED 100
[2016-08-20] MEDS: Heparin 5000 units/ml inj SUBQ SCH (09:29)
--- NOTE | 2016-08-20 11:07 | Infectious Diseases Prog Note ---
Assessment/Plan Assessment/Plan ASSESSMENT: 55 y/o male with: // no evid of wound infection and cellulitis - doppler(-) DVT // Leukocytosis, SP , afebrile // Wnd cx : colonization ( PSA , CoNS and Diphtheroids ) // ESRD / HD with RUE AVF // Isolated ALP elevation - GGT WNL // Elevated CRP // Chronic pain syndrome, on methadone // h/o MRSA, VRE colonization // NKDA // Full Code PLAN: - monitor pt off of AB Rx ( 08/15 SP DC on IV vancomycin, cefepime d # 1 ) - monitor CBC, temperatures - monitor BMP - wound care Subjective Allergies: Coded Allergies: No Known Allergies (Unverified , 08/31/15) Subjective no new complain Objective Vital Signs Last 24 Hour Vital Signs Date Time Temp Pulse Resp B/P Pulse Ox O2 Delivery O2 Flow Rate FiO2 08/20/16 09:42 97.3 08/20/16 09:00 92/08/20/16 09:00 82 08/20/16 07:44 97.3 82 12 Room Air 08/20/16 04:08 98.1 84 20 92/66 93 Room Air 08/20/16 00:08 96.5 103 18 130/72 95 Room Air 08/19/16 21:12 105 133/77 08/19/16 20:09 105 18 Room Air 08/19/16 20:02 97.9 115 22 133/77 97 Room Air 08/19/16 16:00 98.2 109 18 132/91 97 Room Air 08/19/16 14:21 Room Air 95.0 21 08/19/16 14:20 Room Air 95.0 21 08/19/16 12:00 98.1 67 20 127/83 96 Room Air Height (Feet): 5 Height (Inches): 10.00 Weight (Pounds): 180 HEENT: anicteric Respiratory/Chest: no accessory muscle use Cardiovascular: regularly irregular Abdomen: non distended Laboratory Tests Test 08/20/16 05:35 White Blood Count 8.1 K/UL (4.8-10.8) Red Blood Count 2.81 M/UL (4.70-6.10) L Hemoglobin 7.8 G/DL (14.2-18.0) L Hematocrit 25.4 % (42.0-52.0) L Mean Corpuscular Volume 90 FL (80-99) Mean Corpuscular Hemoglobin 27.9 PG (27.0-31.0) Mean Corpuscular Hemoglobin Concent 30.9 G/DL (32.0-36.0) L Red Cell Distribution Width 15.6 % (11.6-14.8) H Platelet Count 307 K/UL (150-450) Mean Platelet Volume 5.5 FL (6.5-10.1) L Neutrophils (%) (Auto) % (45.0-75.0) Lymphocytes (%) (Auto) % (20.0-45.0) Monocytes (%) (Auto) % (1.0-10.0) Eosinophils (%) (Auto) % (0.0-3.0) Basophils (%) (Auto) % (0.0-2.0) Differential Total Cells Counted 100 Neutrophils % (Manual) 77 % (45-75) H Lymphocytes % (Manual) 14 % (20-45) L Monocytes % (Manual) 9 % (1-10) Eosinophils % (Manual) 0 % (0-3) Basophils % (Manual) 0 % (0-2) Band Neutrophils 0 % (0-8) Platelet Estimate Adequate Platelet Morphology Normal Hypochromasia 1+ Anisocytosis 1+ Sodium Level 133 mEQ/L (135-145) L Potassium Level 4.9 mEQ/L (3.4-4.9) Chloride Level 86 mEQ/L (98-107) L Carbon Dioxide Level 30 mEQ/L (20-30) Anion Gap 17 (5-15) H Blood Urea Nitrogen 86 mg/dL (7-23) H Creatinine 10.7 mg/dL (0.7-1.2) H Estimat Glomerular Filtration Rate 6.1 mL/min (>60) Glucose Level 109 mg/dL (74-106) H Uric Acid 6.6 mg/dL (3.0-7.5) Calcium Level 9.3 mg/dL (8.6-10.2) Phosphorus Level 6.6 mg/dL (2.5-4.8) H Magnesium Level 2.6 mg/dL (1.7-2.5) H Total Bilirubin 0.3 mg/dL (0.0-1.2) Aspartate Amino Transf (AST/SGOT) 18 U/L (5-40) Alanine Aminotransferase (ALT/SGPT) 12 U/L (3-41) Alkaline Phosphatase 92 U/L (40-129) C-Reactive Protein, Quantitative 9.6 mg/dL (< 0.5) H Pro-B-Type Natriuretic Peptide 38698 pg/mL (0-125) H Total Protein 8.3 g/dL (6.6-8.7) Albumin 3.7 g/dL (3.5-5.2) Globulin 4.6 g/dL Albumin/Globulin Ratio 0.8 (1.0-2.7) L Current Medications Medications (Trade) Dose Ordered Sig/Hilary Route PRN Reason Start Time Stop Time Status Last Admin Dose Admin Acetaminophen (Tylenol) 650 mg Q4H PRN ORAL T>100.5 08/14/16 15:45 09/13/16 15:44 Acetaminophen/ Hydrocodone Bitart ([place] 10/325) 1 ea Q6H PRN ORAL Moderate Pain (Pain Scale 4-6) 08/20/16 08:00 08/27/16 07:59 Carvedilol (Coreg) 25 mg EVERY 12 HOURS ORAL 08/14/16 21:00 09/13/16 20:59 08/19/16 21:12 Cinacalcet (Sensipar) 90 mg DAILY ORAL 08/17/16 09:00 09/16/16 08:59 08/20/16 09:13 Clonidine HCl (Catapres) 0.1 mg Q4H PRN GT SBP > 160 08/15/16 13:45 09/14/16 13:44 Dextrose (Dextrose 50%) STAT PRN IV Hypoglycemia 08/14/16 15:45 09/13/16 15:44 Diphenhydramine HCl (Benadryl) 25 mg Q6H PRN ORAL Itching 08/16/16 20:30 09/15/16 20:29 08/17/16 05:32 Gabapentin (Neurontin) 100 mg DAILY ORAL 08/15/16 09:00 09/14/16 08:59 08/20/16 09:29 Heparin Sodium (Porcine) (Heparin 5000 units/ml) 5,000 units EVERY 12 HOURS SUBQ 08/14/16 21:00 09/13/16 20:59 08/20/16 09:29 Hydromorphone HCl (Dilaudid) 1 mg Q3H PRN IVP For Severe Pain 08/18/16 07:00 08/25/16 06:59 08/20/16 09:12 Ibuprofen (Motrin) 600 mg Q8H PRN ORAL Mild Pain (Pain Scale 1-3) 08/14/16 16:05 09/13/16 15:44 Losartan Potassium (Cozaar) 50 mg DAILY ORAL 08/15/16 09:00 09/14/16 08:59 08/18/16 08:46 Methadone HCl (Methadone HCl) 5 mg BID ORAL 08/20/16 09:00 08/27/16 08:59 08/20/16 09:14 Nitroglycerin (Ntg) 0.4 mg Q5MIN X 3 DOSES PRN SL Prn Chest Pain 08/14/16 16:15 09/13/16 16:14 Ondansetron HCl (Zofran) 4 mg Q6H PRN IVP Nausea & Vomiting 08/14/16 15:45 09/13/16 15:44 Pantoprazole (Protonix) 40 mg EVERY 12 HOURS ORAL 08/15/16 11:45 09/14/16 11:44 08/20/16 09:15 Polyethylene Glycol (Miralax) 17 gm DAILYPRN PRN ORAL Constipation 08/14/16 15:45 09/13/16 15:44 Sevelamer Carbonate (Renvela) 3,200 mg THREE TIMES A DAY ORAL 08/18/16 09:00 09/17/16 08:59 08/20/16 09:13 Temazepam (Restoril) 15 mg HSPRN PRN ORAL Insomnia 08/14/16 21:00 08/21/16 20:59 08/16/16 22:56 KHOA ADAME M.D. August 20, 2016 11:07
[2016-08-20 11:24] VITALS: BP 154/91
--- NOTE | 2016-08-20 12:35 | Diagnostic Imaging Report ---
APPROVED REPORT CPT Code: 09080 Symptoms Non-healing Ulcer : Right Rest Pain : Right BILATERAL: Common femoral artery waveform analysis is within normal limits at rest. Color flow duplex sonography reveals diffuse calcification throughout the superficial femoral and popliteal arteries. There is no evidence of stenosis or occlusion within these segments. The tibioperoneal trunk were patent. The Doppler tibial artery waveform analysis is compatible with moderate ischemia at rest.
--- NOTE | 2016-08-20 14:34 | General Progress Note ---
Assessment/Plan Status: stable Assessment/Plan ESRD on HD M W Fr HTN Anemia Bilateral LE edema Methadone dependence Venous stasis dermatitis of both lower extremities Venous ulcer of right leg Necrotic eschar Plan: diet to renal HD 08/19 next 08/21 Up dose Renvela Adjust BP meds- Vascular studies LEs, wound care per orders ? Dc planning Subjective ROS Limited/Unobtainable: No Constitutional: Reports: malaise Allergies: Coded Allergies: No Known Allergies (Unverified , 08/31/15) Objective Last 24 Hour Vital Signs Date Time Temp Pulse Resp B/P Pulse Ox O2 Delivery O2 Flow Rate FiO2 08/20/16 13:00 97.7 08/20/16 11:24 97.7 89 19 154/91 97 Room Air 08/20/16 09:00 92/66 08/20/16 09:00 82 /08/20/16 07:44 97.3 82 12 Room Air 08/20/16 04:08 98.1 84 20 92/66 93 Room Air 08/20/16 00:08 96.5 103 18 130/72 95 Room Air 08/19/16 21:12 105 133/77 08/19/16 20:09 105 18 Room Air 08/19/16 20:02 97.9 115 22 133/77 97 Room Air 08/19/16 16:00 98.2 109 18 132/91 97 Room Air Intake and Output 08/19/16 08/20/16 19:00 07:00 Intake Total 600 ml Output Total 3100 ml Balance -2500 ml Intake Oral 600 ml Hemodialysis UF 3100 ml # Voids 2 2 # Bowel Movements 2 Laboratory Tests 08/20/16 05:35: White Blood Count 8.1, Red Blood Count 2.81L, Hemoglobin 7.8L, Hematocrit 25.4L , Mean Corpuscular Volume 90, Mean Corpuscular Hemoglobin 27.9, Mean Corpuscular Hemoglobin Concent 30.9L, Red Cell Distribution Width 15.6H, Platelet Count 307, Mean Platelet Volume 5.5L, Neutrophils (%) (Auto) , Lymphocytes (%) (Auto) , Monocytes (%) (Auto) , Eosinophils (%) (Auto) , Basophils (%) (Auto) , Differential Total Cells Counted 100, Neutrophils % ( Manual) 77H, Lymphocytes % (Manual) 14L, Monocytes % (Manual) 9, Eosinophils % ( Manual) 0, Basophils % (Manual) 0, Band Neutrophils 0, Platelet Estimate Adequate, Platelet Morphology Normal, Hypochromasia 1+, Anisocytosis 1+, Sodium Level 133L, Potassium Level 4.9, Chloride Level 86L, Carbon Dioxide Level 30, Anion Gap 17H, Blood Urea Nitrogen 86H, Creatinine 10.7H, Estimat Glomerular Filtration Rate 6.1, Glucose Level 109H, Uric Acid 6.6, Calcium Level 9.3, Phosphorus Level 6.6H, Magnesium Level 2.6H, Total Bilirubin 0.3, Aspartate Amino Transf (AST/SGOT) 18, Alanine Aminotransferase (ALT/SGPT) 12, Alkaline Phosphatase 92, C-Reactive Protein, Quantitative 9.6H, Pro-B-Type Natriuretic Peptide 09235N, Total Protein 8.3, Albumin 3.7, Globulin 4.6, Albumin/Globulin Ratio 0.8L Height (Feet): 5 Height (Inches): 10.00 Weight (Pounds): 180 General Appearance: no apparent distress Objective PE not changed ELSA RICHMOND August 20, 2016 14:34
[2016-08-20 15:46] VITALS: BP 148/88
--- NOTE | 2016-08-20 18:25 | Pulmonology Progress Note ---
Assessment/Plan Problems: (1) Necrotic eschar (2) ESRD (end stage renal disease) on dialysis (3) Cellulitis (4) Methadone dependence (5) Venous ulcer of leg Assessment/Plan off abx HD check electrolytes symptomatic treatment pain management check arterial study BILATERAL: Common femoral artery waveform analysis is within normal limits at rest. Color flow duplex sonography reveals diffuse calcification throughout the superficial femoral and popliteal arteries. There is no evidence of stenosis or occlusion within these segments. The tibioperoneal trunk were patent. The Doppler tibial artery waveform analysis is compatible with moderate ischemia at rest. plan: outpatient Vascular referal Subjective ROS Limited/Unobtainable: No Allergies: Coded Allergies: No Known Allergies (Unverified , 08/31/15) Objective Last 24 Hour Vital Signs Date Time Temp Pulse Resp B/P Pulse Ox O2 Delivery O2 Flow Rate FiO2 08/20/16 16:55 98.2 08/20/16 15:46 98.2 92 20 148/88 97 Room Air 08/20/16 11:24 97.7 89 19 154/91 97 Room Air 08/20/16 09:00 92/66 08/20/16 09:00 82 92/66 08/20/16 07:44 97.3 82 12 Room Air 08/20/16 04:08 98.1 84 20 92/66 93 Room Air 08/20/16 00:08 96.5 103 18 130/72 95 Room Air 08/19/16 21:12 105 133/77 08/19/16 20:09 105 18 Room Air 08/19/16 20:02 97.9 115 22 133/77 97 Room Air Intake and Output 08/19/16 08/20/16 19:00 07:00 Intake Total 600 ml Output Total 3100 ml Balance -2500 ml Intake Oral 600 ml Hemodialysis UF 3100 ml # Voids 2 2 # Bowel Movements 2 Objective HEENT: normocephalic, atraumatic Respiratory/Chest: chest wall non-tender, lungs clear Cardiovascular: normal peripheral pulses, normal rate Abdomen: normal bowel sounds, soft, non tender Genitourinary: normal external genitalia Extremities: no cyanosis Skin: no rash Laboratory Tests 08/20/16 05:35: White Blood Count 8.1, Red Blood Count 2.81L, Hemoglobin 7.8L, Hematocrit 25.4L , Mean Corpuscular Volume 90, Mean Corpuscular Hemoglobin 27.9, Mean Corpuscular Hemoglobin Concent 30.9L, Red Cell Distribution Width 15.6H, Platelet Count 307, Mean Platelet Volume 5.5L, Neutrophils (%) (Auto) , Lymphocytes (%) (Auto) , Monocytes (%) (Auto) , Eosinophils (%) (Auto) , Basophils (%) (Auto) , Differential Total Cells Counted 100, Neutrophils % ( Manual) 77H, Lymphocytes % (Manual) 14L, Monocytes % (Manual) 9, Eosinophils % ( Manual) 0, Basophils % (Manual) 0, Band Neutrophils 0, Platelet Estimate Adequate, Platelet Morphology Normal, Hypochromasia 1+, Anisocytosis 1+, Sodium Level 133L, Potassium Level 4.9, Chloride Level 86L, Carbon Dioxide Level 30, Anion Gap 17H, Blood Urea Nitrogen 86H, Creatinine 10.7H, Estimat Glomerular Filtration Rate 6.1, Glucose Level 109H, Uric Acid 6.6, Calcium Level 9.3, Phosphorus Level 6.6H, Magnesium Level 2.6H, Total Bilirubin 0.3, Aspartate Amino Transf (AST/SGOT) 18, Alanine Aminotransferase (ALT/SGPT) 12, Alkaline Phosphatase 92, C-Reactive Protein, Quantitative 9.6H, Pro-B-Type Natriuretic Peptide 82374S, Total Protein 8.3, Albumin 3.7, Globulin 4.6, Albumin/Globulin Ratio 0.8L Current Medications Medications (Trade) Dose Ordered Sig/Hilary Route PRN Reason Start Time Stop Time Status Last Admin Dose Admin Acetaminophen (Tylenol) 650 mg Q4H PRN ORAL T>100.5 08/14/16 15:45 09/13/16 15:44 Acetaminophen/ Hydrocodone Bitart ([place] 10/325) 1 ea Q6H PRN ORAL Moderate Pain (Pain Scale 4-6) 08/20/16 08:00 08/27/16 07:59 Carvedilol (Coreg) 25 mg EVERY 12 HOURS ORAL 08/14/16 21:00 09/13/16 20:59 08/19/16 21:12 Cinacalcet (Sensipar) 90 mg DAILY ORAL 08/17/16 09:00 09/16/16 08:59 08/20/16 09:13 Clonidine HCl (Catapres) 0.1 mg Q4H PRN GT SBP > 160 08/15/16 13:45 09/14/16 13:44 Dextrose (Dextrose 50%) STAT PRN IV Hypoglycemia 08/14/16 15:45 09/13/16 15:44 Diphenhydramine HCl (Benadryl) 25 mg Q6H PRN ORAL Itching 08/16/16 20:30 09/15/16 20:29 08/17/16 05:32 Gabapentin (Neurontin) 100 mg DAILY ORAL 08/15/16 09:00 09/14/16 08:59 08/20/16 09:29 Heparin Sodium (Porcine) (Heparin 5000 units/ml) 5,000 units EVERY 12 HOURS SUBQ 08/14/16 21:00 09/13/16 20:59 08/20/16 09:29 Hydromorphone HCl (Dilaudid) 1 mg Q3H PRN IVP For Severe Pain 08/18/16 07:00 08/25/16 06:59 08/20/16 16:25 Ibuprofen (Motrin) 600 mg Q8H PRN ORAL Mild Pain (Pain Scale 1-3) 08/14/16 16:05 09/13/16 15:44 Losartan Potassium (Cozaar) 50 mg DAILY ORAL 08/15/16 09:00 09/14/16 08:59 08/18/16 08:46 Methadone HCl (Methadone HCl) 5 mg BID ORAL 08/20/16 09:00 08/27/16 08:59 08/20/16 09:14 Nitroglycerin (Ntg) 0.4 mg Q5MIN X 3 DOSES PRN SL Prn Chest Pain 08/14/16 16:15 09/13/16 16:14 Ondansetron HCl (Zofran) 4 mg Q6H PRN IVP Nausea & Vomiting 08/14/16 15:45 09/13/16 15:44 Pantoprazole (Protonix) 40 mg EVERY 12 HOURS ORAL 08/15/16 11:45 09/14/16 11:44 08/20/16 09:15 Polyethylene Glycol (Miralax) 17 gm DAILYPRN PRN ORAL Constipation 08/14/16 15:45 09/13/16 15:44 Sevelamer Carbonate (Renvela) 3,200 mg THREE TIMES A DAY ORAL 08/18/16 09:00 09/17/16 08:59 08/20/16 12:30 Temazepam (Restoril) 15 mg HSPRN PRN ORAL Insomnia 08/14/16 21:00 08/21/16 20:59 08/16/16 22:56 ANGELICA PARSON August 20, 2016 18:25
--- NOTE | 2016-08-22 08:52 | Discharge Summary ---
Discharge Summary Hospital Course Date of Admission August 14, 2016 at 14:55 Date of Discharge August 20, 2016 at 18:00 Admitting Diagnosis right leg necrotic wound HPI Faustino Becerril is a 56 year old male who was admitted on August 14, 2016 at 14:55 for Right Leg Necrotic Wound Hospital Course [id number] Discharge Discharge Disposition Patient was discharged to SNF/Subacute Facility(03) Discharge Diagnoses: Lynn Garcia NP Aug 22, 2016 08:52
--- NOTE | 2016-08-22 11:45 | Discharge Summary 2 SIG ---
DATE OF ADMISSION: 08/14/2016 DATE OF DISCHARGE: 08/20/2016 CONSULTANTS: 1. Larry Thomas M.D. 2. Petar Short M.D. 3. Norm Byrne M.D. BRIEF HOSPITAL COURSE: The patient is a 56-year-old male with history of end-stage renal failure and wounds to the lower extremity, who was [facility] from [facility] because of worsening pain and worsening condition of the wound. He was admitted in April 2016 for bilateral cellulitis of lower extremity with wound culture showing polymicrobial growth. On evaluation at ED, noted right leg ulcers. X-ray of the leg showed no evidence of gas gangrene and there was no crepitus noted on examination. He was given on empiric antibiotics and was admitted to medical floor. Dr. Short was consulted. The patient was given IV vancomycin and cefepime and was advised to be taken off antibiotic treatment. Pending culture results. He was given local wound care with daily dressing. Dr. Thomas was consulted for inpatient hemodialysis management. He has an AV fistula on the right arm. Venous duplex of lower extremity was negative for DVT with normal spontaneous flow within the femoropopliteal tibial and greater saphenous veins. The right arterial scan of the right arm showed diffuse calcification. Arterial scan of the right leg showed diffuse calcification the superficial femoral and popliteal artery. There was no evidence of stenosis or occlusion and Doppler tibial artery waveform was compatible with moderate ischemia. He continued to have generalized pain. He had been taking methadone 10 mg b.i.d. with [place] 10/325 every four hours for breakthrough pain. He was given pain control consisting of methadone, [place], and Dilaudid. He had an episode of hyperkalemia prior to hemodialysis and was given a Kayexalate. Phosphorus levels were elevated and Renvela was increased. He was recommended outpatient referral for vascular surgeon. Wound culture showed growth of Pseudomonas, diphtheroids, and coagulase-negative Staph, which are colonizers. He was continued to be off antibiotic treatment and was discharged back to [facility]. DISPOSITION: The patient was discharged to rehab center of [facility] . FINAL DIAGNOSES: 1. Cellulitis of both lower extremities. 2. Necrotic eschar. 3. End-stage renal disease, on hemodialysis. 4. Methadone dependence. 5. Venous ulcer of the right leg present on admission. 6. Venous stasis dermatitis of both lower extremities. 7. Intractable pain. 8. Peripheral vascular disease. 9. Chronic pain syndrome on methadone. 10. Hyperkalemia. 11. Isolated alkaline phosphatase elevation with normal . 12. Lower leg venous stasis present on admission. 13. Wound colonization with Pseudomonas coagulase-negative Staph and diphtheroids present on admission. Jeremi Henderson M.D. I have been assigned to dictate discharge summary on this account and I was not involved in the patient's management. Lynn Garcia N.P. DR: Cris JOB#: [id number] CC:
== END 2016-08-20 18:00 | DRG 197 ==
LOC: EDBD 14:25 → EDBEDREQ 14:33 → EMR 14:44 → 4W 14:55 → EDBEDREQ 16:36
PROC: 5A1D00Z (ICD-10-PCS; principal; 2016-08-20)
DX: I83.018 Varicose veins of right lower extremity with ulcer other part of lower leg (principal); I96 Gangrene, not elsewhere classified; N18.6 End stage renal disease; I12.0 Hypertensive chronic kidney disease with stage 5 chronic kidney disease or end stage renal disease; F11.20 Opioid dependence, uncomplicated; L03.115 Cellulitis of right lower limb; L97.819 Non-pressure chronic ulcer of other part of right lower leg with unspecified severity; Z99.2 Dependence on renal dialysis; M15.9 Polyosteoarthritis, unspecified; L97.811 Non-pressure chronic ulcer of other part of right lower leg limited to breakdown of skin; Z86.718 Personal history of other venous thrombosis and embolism; Z86.14 Personal history of Methicillin resistant Staphylococcus aureus infection; G89.4 Chronic pain syndrome; L03.116 Cellulitis of left lower limb; D64.9 Anemia, unspecified
CPT/HCPCS: 36415; 80053; 80061; 80300; 82550; 82607; 82977; 83036; 83735; 83880; 84100; 84443; 84550; 85007; 85025; 86140; 87040; 87070; 87181; 87205; 93005; 93925; 93970; 94664; J1815

== ENCOUNTER 2016-09-11 14:19 | Inpatient (IN) | payer MEDICAID ==
[~2016-09-11] VITALS: Ht 167.6 cm; Wt 77.1 kg
[~2016-09-11 14:19] MED LIST changes: +ARTIFICIAL TEAR15 ML BOTH EYES; +HYDROXYZINE HCL50 M1 PO; +PRO-STAT LIQUID30 ML ORAL; +SENSIPAR30 MG ORAL
--- NOTE | 2016-09-11 15:08 | Emergency Room Report ---
History of Present Illness General Chief Complaint: Pain Present Illness HPI 56 YO Male presents to the ED c/o worsening of chronic venous stasis ulcer on the right leg. Pt. states he [facility]. Pt states ulcer started over 3 months ago and was a single small blister. pt. now reports the ulcer to cover almost the entire posterior calf. pt. states he has a hx of ESRD and is on dialysis 3x per week MWF . pt. reports hx of HTN which ultimately damaged his kidneys. pt. reports 10/10 in severity right leg pain with bilateral LE edema that he states is chronic. Pt. denies trauma or fall. pt. states pain is exacerbated when he lays on a bed and pressure is put on the posterior calf. pt. reports letting his leg hang provides some minimal relief. Pt. states he has wound care with debridement performed at the nursing facility , however he was sent to ED today for suspicion that he may have to have his leg amputated. pt. denies Cough, fevers, chills, abdominal pain, or rashes. Denies CP, Palpitations, LOC, AMS, dizziness, Changes in Vision, Sensation, paresthesias, or a sudden severe headache. Allergies: Coded Allergies: No Known Allergies (Unverified , 08/31/15) Patient History Past Medical History: see triage record Past Surgical History: none Pertinent Family History: none Immunizations: UTD Reviewed Nursing Documentation: PMH: Agreed, PSxH: Agreed Nursing Documentation-PMH Hx Cardiac Problems: Yes - Heart failure, Hx Hypertension: Yes Hx Pacemaker: Yes Hx Asthma: No Hx COPD: No Hx Cancer: No Hx Gastrointestinal Problems: Yes - GERD Hx Dialysis: Yes - ESRD, Anemia in CKD, History Of Psychiatric Problem: Yes - Major depressive D/O Hx Cerebrovascular Accident: No Hx Dementia: No Hx Alzheimer's Disease: Yes Hx Parkinson's Disease: No Hx Meningitis: No Hx Encephalitis: No Hx Seizures: No Hx Epilepsy: No Hx Multiple Sclerosis: No Hx Cerebral Palsy: No Hx Amyotrophic Lat Sclerosis: No Hx Guillian-Coleman Syndrome: No Hx Paralysis: No Hx Spinal Cord Injury: No Hx Head Trauma: No Hx Traumatic Brain Injury: No Hx Memory Loss: No Hx Concentration Difficulty: No Hx Speech Problem: Yes Hx Tremors: No Hx Vertigo: No Hx Dizziness: No Hx Syncope: Yes Hx Headaches: No Hx Aphasia: No Hx Dysphasia: No Hx Numbness: Yes - some numbness patient state just started Hx Weakness: No Hx Neurologic Surgery: No Hx Brain Shunt: No Review of Systems All Other Systems: negative except mentioned in HPI Physical Exam Vital Signs Date Time Temp Pulse Resp B/P Pulse Ox O2 Delivery O2 Flow Rate FiO2 09/11/16 14:17 98.1 94 22 85/55 97 Room Air Sp02 EP Interpretation: reviewed, abnormal - low bp General Appearance: alert, GCS 15, non-toxic, mild distress, Chronically Ill Head: normocephalic, atraumatic Eyes: bilateral eye PERRL, bilateral eye normal inspection ENT: hearing grossly normal, normal pharynx, no angioedema, normal voice Neck: full range of motion, supple/symm/no masses Respiratory: lungs clear, normal breath sounds, speaking full sentences Cardiovascular #1: regular rate, rhythm, normal capillary refill, edema - bilateral LE non-pitting edema noted Cardiovascular #2: 2+ dorsalis pedis (R), 2+ dorsalis pedis (L) Musculoskeletal: back normal, normal range of motion, other - TTP, erythema of the bilateral LE with edema, are subcutaneous ulcers noted., tender - bilateral LE Neurologic: alert, oriented x3, responsive, motor strength/tone normal, sensory intact, speech normal Psychiatric: judgement/insight normal, memory normal, mood/affect normal Skin: warm/dry, well hydrated, other - large 10 cm cutaneous ulcer noted to the right posterior calf with necrotic character, surrounding erythema. there is a 3cm ulcers noted to the anterior right LE, and 2cm ulcer noted to the anterior left LE. non-pitting edema. Medical Decision Making PA Attestation Dr. Enriquez is my supervising Physician whom patient management has been discussed with. Diagnostic Impression: Primary Impression: Venous ulcer of leg Qualified Codes: I83.019 - Varicose veins of right lower extremity with ulcer of unspecified site; I83.029 - Varicose veins of left lower extremity with ulcer of unspecified site Additional Impressions: Cellulitis Qualified Codes: L03.115 - Cellulitis of right lower limb ESRD (end stage renal disease) on dialysis ER Course 56 YO Male presents to the ED c/o worsening of chronic venous stasis ulcer on the right leg. Pt. states he [facility]. Pt states ulcer started over 3 months ago and was a single small blister. pt. now reports the ulcer to cover almost the entire posterior calf. pt. states he has a hx of ESRD and is on dialysis 3x per week MWF . pt. reports hx of HTN which ultimately damaged his kidneys. pt. reports 10/10 in severity right leg pain with bilateral LE edema that he states is chronic. Pt. denies trauma or fall. pt. states pain is exacerbated when he lays on a bed and pressure is put on the posterior calf. pt. reports letting his leg hang provides some minimal relief. Pt. states he has wound care with debridement performed at the nursing facility , however he was sent to ED today for suspicion that he may have to have his leg amputated. pt. denies Cough, fevers, chills, abdominal pain, or rashes. Denies CP, Palpitations, LOC, AMS, dizziness, Changes in Vision, Sensation, paresthesias, or a sudden severe headache. Ddx considered but are not limited to cellulitis, chronic venous stasis ulcer, osteomyelitis, PAD, sepsis Vital signs: are WNL, pt. is afebrile H&PE are most consistent with non-healing chronic ulcer of the right lower extremity with necrotic features. ORDERS: -CBC: elevated wbc at 12.7, and decreased rbc,hb,hct. -CMP potassium of 5, elevated BUN 40 and cr : 5 -Lactic acid: unremarkable -blood cultures : Pending -EK BPM NSR, no acute ST changes, not given ASA in ED- interpreted by Dr. Enriquez -CXR: right middle lobe opacity vs artifact, no acute pulmonary disease, mildly enlarged cardiac silhouette per preliminary read in the ED by Dr. Enriquez - ED INTERVENTIONS: -500cc NS bolus - 6mg Morphine IV DISPOSITION: at this time pt. will be admitted to Dr. Henderson for necrotic non- healing ulcer. agreed to admit the pt. and to continue pt. care management. Labs Test 09/11/16 15:30 White Blood Count 12.7 K/UL (4.8-10.8) Red Blood Count 3.18 M/UL (4.70-6.10) Hemoglobin 9.2 G/DL (14.2-18.0) Hematocrit 28.3 % (42.0-52.0) Mean Corpuscular Volume 89 FL (80-99) Mean Corpuscular Hemoglobin 28.9 PG (27.0-31.0) Mean Corpuscular Hemoglobin Concent 32.4 G/DL (32.0-36.0) Red Cell Distribution Width 15.9 % (11.6-14.8) Platelet Count 331 K/UL (150-450) Mean Platelet Volume 4.9 FL (6.5-10.1) Neutrophils (%) (Auto) 75.6 % (45.0-75.0) Lymphocytes (%) (Auto) 12.1 % (20.0-45.0) Monocytes (%) (Auto) 10.5 % (1.0-10.0) Eosinophils (%) (Auto) 0.0 % (0.0-3.0) Basophils (%) (Auto) 1.8 % (0.0-2.0) Sodium Level 137 mEQ/L (135-145) Potassium Level 5.0 mEQ/L (3.4-4.9) Chloride Level 91 mEQ/L (98-107) Carbon Dioxide Level 24 mEQ/L (20-30) Anion Gap 22 (5-15) Blood Urea Nitrogen 40 mg/dL (7-23) Creatinine 5.5 mg/dL (0.7-1.2) Estimat Glomerular Filtration Rate 13.1 mL/min (>60) Glucose Level 85 mg/dL (74-106) Lactic Acid Level 1.80 mmol/L (0.66-2.22) Calcium Level 9.4 mg/dL (8.6-10.2) Total Bilirubin 0.2 mg/dL (0.0-1.2) Aspartate Amino Transf (AST/SGOT) 18 U/L (5-40) Alanine Aminotransferase (ALT/SGPT) 10 U/L (3-41) Alkaline Phosphatase 118 U/L (40-129) Total Protein 7.9 g/dL (6.6-8.7) Albumin 3.7 g/dL (3.5-5.2) Globulin 4.2 g/dL Albumin/Globulin Ratio 0.8 (1.0-2.7) Last Vital Signs Date Time Temp Pulse Resp B/P Pulse Ox O2 Delivery O2 Flow Rate FiO2 09/11/16 14:17 98.1 94 22 85/55 97 Room Air Disposition: ADMITTED INPATIENT Condition: Serious Anna Cadena Sep 11, 2016 15:08
[2016-09-11 15:09] VITALS: BP 85/55
[2016-09-11] MEDS ORDERED: DuoNeb 0.5-3(2.5)mg/3ml neb HHN PRN (15:30)
[2016-09-11] MEDS ORDERED: cloNIDine 0.2mg Tab GT PRN (15:30)
[2016-09-11] MEDS ORDERED: Miralax 17gm pkt ORAL PRN (15:30)
[2016-09-11] MEDS ORDERED: Nitroglycerin Subl 0.4mg tab (Bottle Of 25) SL PRN (15:30)
[2016-09-11] MEDS ORDERED: Morphine Sulfate 2mg/ml Inj IVP PRN (15:30)
[2016-09-11] MEDS ORDERED: Morphine Sulfate 10mg/ml Inj IM ONE (15:30)
--- NOTE | 2016-09-11 16:02 | Diagnostic Imaging Report ---
Indication: PAIN Technique: One view of the chest Comparison: 04/28/2016 Findings: There are old right rib deformities. The heart is enlarged. Lungs and pleural spaces are clear. Better inspiration on the current exam. No significant change otherwise Impression: Cardiomegaly. No acute process
[2016-09-11 16:15] LABS: BASOPHILS % (AUTO) 1.8 % (0.0-2.0); LYMPHOCYTES % (AUTO) 12.1 % (20.0-45.0); MEAN CORPUSCULAR HEMOGLOBIN 28.9 PG (27.0-31.0); MEAN CORPUSCULAR HGB CONC 32.4 G/DL (32.0-36.0); MEAN CORPUSCULAR VOLUME 89 FL (80-99); MEAN PLATELET VOLUME 4.9 FL (6.5-10.1); MONOCYTES % (AUTO) 10.5 % (1.0-10.0); NEUTROPHILS % (AUTO) 75.6 % (45.0-75.0); PLATELET COUNT 331 K/UL (150-450); RED BLOOD COUNT 3.18 M/UL (4.70-6.10); RED CELL DISTRIBUTION WIDTH 15.9 % (11.6-14.8); WHITE BLOOD COUNT 12.7 K/UL (4.8-10.8)
[2016-09-11] MEDS: NovoLOG Insulin Flexpen SUBQ SCH ×2 (16:30→21:00)
[2016-09-11 16:31] LABS: ALBUMIN/GLOBULIN RATIO 0.8 (1.0-2.7); CALCIUM 9.4 mg/dL (8.6-10.2); CREATININE 5.5 mg/dL (0.7-1.2); GLOMERULAR FILTRATION RATE 13.1 mL/min (>60); TOTAL PROTEIN 7.9 g/dL (6.6-8.7)
[2016-09-11 19:33] VITALS: BP 99/63
[2016-09-11] MEDS ORDERED: ACETAMINOPHEN325 M1 ORAL (19:35)
[2016-09-11] MEDS ORDERED: NIFEDIPINE ER90 M3 ORAL (19:45)
[2016-09-11] MEDS ORDERED: SERTRALINE HCL50 MG ORAL (19:48)
[2016-09-11] MEDS ORDERED: RENVELA800 MG ORAL (19:51)
[2016-09-11] MEDS ORDERED: ZINC SULFATE220 M1 ORAL (19:53)
[2016-09-11] MEDS ORDERED: FAMOTIDINE20 MG ORAL (19:56)
[2016-09-11] MEDS ORDERED: ATORVASTATIN CA80 MG ORAL (19:59)
[2016-09-11] MEDS ORDERED: DOXYCYCLINE MO100 MG ORAL (20:05)
[2016-09-11] MEDS ORDERED: ISOSORBIDE MONO30 M1 PO (20:05)
[2016-09-11] MEDS ORDERED: DIOVAN320 MG ORAL (20:05)
[2016-09-11] MEDS ORDERED: LABETALOL HCL200 MG ORAL (20:05)
[2016-09-11] MEDS ORDERED: Cefepime HCl 2 GM in D5W 110 ML IV SCH (21:00)
[2016-09-11 21:03] VITALS: BP 100/54
[2016-09-11 21:46] VITALS: BP 114/59
[2016-09-11] MEDS: DiphenhydrAMINE 50mg/ml Inj IVP PRN (21:53)
[2016-09-11] MEDS: Heparin 5000 units/ml inj SUBQ SCH (21:56)
--- NOTE | 2016-09-11 22:05 | History and Physical ---
History of Present Illness General Date patient seen: Sep 13, 2016 Reason for Hospitalization: Pain Present Illness HPI 56 year old Male with pmhx of ESRF on HD, presents to the ED c/o worsening of chronic venous stasis ulcer on the right leg. Ulcer started over 3 months ago and was a single small blister. pt. now reports the ulcer to cover almost the entire posterior calf. pain is exacerbated when he lays on a bed and pressure is put on the posterior calf. he has wound care with debridement performed at the nursing facility, however he was sent to ED today for suspicion that he may have to have his leg amputated. Allergies: Coded Allergies: No Known Allergies (Unverified , 08/31/15) Medication History Scheduled Aspirin (Aspirin EC), 81 MG ORAL DAILY, (Reported) Atorvastatin Calcium* (Lipitor*), 80 MG ORAL DAILY, (Reported) Cinacalcet* (Sensipar*), 30 MG ORAL DAILY, (Reported) Doxycycline Monohydrate* (Doxycycline Monohydrate*), 100 MG ORAL Q12HR, ( Reported) Famotidine (Famotidine), 20 MG ORAL TWICE A DAY, (Reported) Gabapentin* (Gabapentin*), 100 MG ORAL DAILY, (Reported) Isosorbide Mononitrate (Isosorbide Mononitrate Er), 30 MG PO DAILY, (Reported) Labetalol Hcl* (Normodyne*), 200 MG ORAL EVERY 12 HOURS, (Reported) Nifedipine Er* (Nifedipine Er*), 90 MG ORAL DAILY, (Reported) Sertraline Hcl* (Zoloft*), 50 MG ORAL DAILY, (Reported) Sevelamer Carbonate (Renvela), 3,200 MG ORAL THREE TIMES A DAY, (Reported) Valsartan (Diovan), 320 MG ORAL DAILY, (Reported) Vitamin B Cmplx/Vit C/Folic AC (Nephro-Ruby Tablet), 1 TAB ORAL DAILY, (Reported ) Zinc Sulfate (Zinc Sulfate*), 220 MG ORAL DAILY, (Reported) Scheduled PRN Acetaminophen* (Acetaminophen 325MG Tablet*), 650 MG ORAL Q4H PRN for Mild Pain (Pain Scale 1-3), (Reported) Hydrocodone Bit/Acetaminophen 10-325* ([place] 10-325*), 1 TAB ORAL Q6H PRN for For Pain, (Reported) Methadone Hcl* (Methadone*), 10 MG PO BID PRN for Moderate Pain (Pain Scale 4-6) , (Reported) Discontinued Medications Amino Acids/Protein Hydrolys (Pro-Stat Liquid), 30 ML ORAL DAILY, (Reported) Discontinued Reason: Pt stopped taking med Ascorbic Acid* (Vitamin C*), 500 MG ORAL DAILY, (Reported) Discontinued Reason: Pt stopped taking med Bisacodyl* (Dulcolax*), 5 MG ORAL BID, (Reported) Discontinued Reason: Pt stopped taking med Calcium Acetate (Calcium Acetate), 1,334 MG PO BID, (Reported) Discontinued Reason: Pt stopped taking med Calcium Acetate (Calcium Acetate), 667 MG PO TID, (Reported) Discontinued Reason: Pt stopped taking med Carvedilol* (Carvedilol*), 25 MG ORAL EVERY 12 HOURS, (Reported) Discontinued Reason: Pt stopped taking med Cefepime Hcl/D5w (Cefepime-Dextrose 1 Gm/50 Ml), 500 MG IVPB Q24H, (Reported) Discontinued Reason: Therapy completed Cephalexin* (Keflex*), 500 MG ORAL EVERY 12 HOURS Discontinued Reason: Therapy completed Clonidine Hcl (Clonidine Hcl), 0.2 MG PO Q4HR, (Reported) Discontinued Reason: Pt stopped taking med Clonidine Hcl* (Catapres*), 0.1 MG ORAL EVERY 4 HOURS PRN for For High Blood Pressure, (Reported) Discontinued Reason: Pt stopped taking med Dextran 70/Hypromellose (Artificial Tears Eye Drops*), 1 DROP BOTH EYES BID, ( Reported) Discontinued Reason: Pt stopped taking med Diphenhydramine Hcl* (Benadryl*), 50 MG ORAL Q6H PRN for Itching, (Reported) Discontinued Reason: Pt stopped taking med Diphenhydramine Hcl* (Diphenhydramine Hcl*), 25 MG ORAL Q6H PRN for Itching, ( Reported) Discontinued Reason: Pt stopped taking med Guaifenesin/Dextromethorphan (Robitussin Cough-Chest Dm Liq), 10 ML PO EVERY 4 HOURS PRN for For Cough, (Reported) Discontinued Reason: Pt stopped taking med Heparin Sod (Porcine) (Heparin Sodium*), 5,000 UNITS SUBQ EVERY 12 HOURS, ( Reported) Discontinued Reason: Pt stopped taking med Hydrocodone Bit/Acetaminophen 10-325* (Hydrocodon-Acetaminophn 10-325*), 1 TAB ORAL Q6H PRN for Pain Scale (6-10), (Reported) Discontinued Reason: Pt stopped taking med Hydrocodone Bit/Acetaminophen 5-325* ([place] 5-325*), 1 TAB ORAL EVERY 8 HOURS PRN for For Pain, (Reported) Discontinued Reason: Pt stopped taking med Hydroxyzine Hcl (Hydroxyzine Hcl), 50 MG PO EVERY 6 HOURS, (Reported) Discontinued Reason: Pt stopped taking med Lorazepam* (Lorazepam*), 0.5 MG IV Q4H PRN for For Anxiety, (Reported) Discontinued Reason: Pt stopped taking med Losartan Potassium* (Losartan Potassium*), 100 MG ORAL DAILY, (Reported) Discontinued Reason: Pt stopped taking med Morphine Sulfate (Morphine Sulfate), 1 MG IVP EVERY 4 HOURS PRN for Severe Pain (Pain Scale 7-10), (Reported) Discontinued Reason: Pt stopped taking med Ondansetron (Zofran), 4 MG ORAL Q6HR PRN for Nausea & Vomiting, (Reported) Discontinued Reason: Pt stopped taking med Ondansetron Hcl* (Zofran*), 4 MG IVP Q6H PRN for Nausea & Vomiting, (Reported) Discontinued Reason: Pt stopped taking med Polyethylene Glycol 3350* (Miralax*), 17 GM ORAL HS PRN for prn, (Reported) Discontinued Reason: Pt stopped taking med Silver Sulfadiazine (Silver Sulfadiazine), 400 GM TP, (Reported) Discontinued Reason: Pt stopped taking med Vancomycin Hcl/D5w (Vancomycin-D5w 1 G/250 Ml), 0 IVPB pharmacy to dose, ( Reported) Discontinued Reason: Therapy completed Vitamins A And D (Vitamin A And D), 1 APPLIC TOPIC EVERY 12 HOURS, (Reported) Discontinued Reason: Pt stopped taking med Zolpidem Tartrate* (Zolpidem Tartrate*), 5 MG ORAL BEDTIME PRN for Insomnia, ( Reported) Discontinued Reason: Pt stopped taking med Patient History Healthcare decision maker Resuscitation status Full Code Advanced Directive on File Past Medical/Surgical History Past Medical/Surgical History: (1) Leg edema, left (2) Atrial fibrillation with RVR (3) DVT (deep venous thrombosis) Review of Systems All Other Systems: negative except mentioned in HPI Physical Exam General Appearance: WD/WN Lines, tubes and drains: peripheral HEENT: normocephalic, atraumatic Neck: non-tender, normal alignment Respiratory/Chest: chest wall non-tender, lungs clear Cardiovascular/Chest: normal peripheral pulses, normal rate Abdomen: normal bowel sounds Genitourinary/Rectal: normal genital exam Extremities: normal range of motion Skin Exam: normal pigmentation Neurologic: nutrition aide II-XII grossly normal Last 24 Hour Vital Signs Date Time Temp Pulse Resp B/P Pulse Ox O2 Delivery O2 Flow Rate FiO2 09/11/16 21:46 96.3 92 19 114/59 96 Room Air 09/11/16 21:03 98.6 94 22 100/54 99 Room Air 09/11/16 19:33 98.6 91 22 99/63 97 Room Air 09/11/16 15:09 98.1 22 85/55 97 Room Air 09/11/16 14:17 98.1 94 22 85/55 97 Room Air Laboratory Tests Test 09/11/16 15:30 White Blood Count 12.7 K/UL (4.8-10.8) H Red Blood Count 3.18 M/UL (4.70-6.10) L Hemoglobin 9.2 G/DL (14.2-18.0) L Hematocrit 28.3 % (42.0-52.0) L Mean Corpuscular Volume 89 FL (80-99) Mean Corpuscular Hemoglobin 28.9 PG (27.0-31.0) Mean Corpuscular Hemoglobin Concent 32.4 G/DL (32.0-36.0) Red Cell Distribution Width 15.9 % (11.6-14.8) H Platelet Count 331 K/UL (150-450) Mean Platelet Volume 4.9 FL (6.5-10.1) L Neutrophils (%) (Auto) 75.6 % (45.0-75.0) H Lymphocytes (%) (Auto) 12.1 % (20.0-45.0) L Monocytes (%) (Auto) 10.5 % (1.0-10.0) H Eosinophils (%) (Auto) 0.0 % (0.0-3.0) Basophils (%) (Auto) 1.8 % (0.0-2.0) Sodium Level 137 mEQ/L (135-145) Potassium Level 5.0 mEQ/L (3.4-4.9) H Chloride Level 91 mEQ/L (98-107) L Carbon Dioxide Level 24 mEQ/L (20-30) Anion Gap 22 (5-15) H Blood Urea Nitrogen 40 mg/dL (7-23) H Creatinine 5.5 mg/dL (0.7-1.2) H Estimat Glomerular Filtration Rate 13.1 mL/min (>60) Glucose Level 85 mg/dL (74-106) Lactic Acid Level 1.80 mmol/L (0.66-2.22) Calcium Level 9.4 mg/dL (8.6-10.2) Total Bilirubin 0.2 mg/dL (0.0-1.2) Aspartate Amino Transf (AST/SGOT) 18 U/L (5-40) Alanine Aminotransferase (ALT/SGPT) 10 U/L (3-41) Alkaline Phosphatase 118 U/L (40-129) Total Protein 7.9 g/dL (6.6-8.7) Albumin 3.7 g/dL (3.5-5.2) Globulin 4.2 g/dL Albumin/Globulin Ratio 0.8 (1.0-2.7) L Height (Feet): 5 Height (Inches): 6.00 Weight (Pounds): 170 Medications Current Medications Medications (Trade) Dose Ordered Sig/Hilary Route PRN Reason Start Time Stop Time Status Last Admin Dose Admin Acetaminophen (Tylenol) 650 mg Q4H PRN ORAL fever 09/11/16 15:30 10/11/16 15:29 Albuterol/ Ipratropium (DuoNeb 0.5-3(2.5)mg/3ml) 3 ml EVERY 4 HOURS PRN HHN Shortness of Breath 09/11/16 15:30 09/16/16 15:29 Aspirin (Ecotrin) 81 mg DAILY ORAL 09/12/16 09:00 10/12/16 08:59 Cefepime HCl 500 mg/Dextrose 55 ml @ 110 mls/hr Q24H IV 09/11/16 23:00 09/18/16 22:59 Cinacalcet (Sensipar) 30 mg DAILY ORAL 09/12/16 09:00 10/12/16 08:59 Clonidine HCl (Catapres) 0.2 mg EVERY 6 HOURS PRN GT For High Blood Pressure> 160 09/11/16 15:30 10/11/16 15:29 Dextrose (Dextrose 50%) STAT PRN IV Hypoglycemia 09/11/16 15:30 10/11/16 15:29 Diphenhydramine HCl (Benadryl) 50 mg Q6HR PRN IVP Itching 09/11/16 15:30 10/11/16 15:29 09/11/16 21:53 Gabapentin (Neurontin) 100 mg DAILY ORAL 09/12/16 09:00 10/12/16 08:59 Heparin Sodium (Porcine) (Heparin 5000 units/ml) 5,000 units EVERY 12 HOURS SUBQ 09/11/16 22:00 10/11/16 21:59 09/11/16 21:56 Hydromorphone HCl (Dilaudid) 2 mg Q4H PRN IV severe pain 7-10 09/11/16 15:30 09/18/16 15:29 09/11/16 21:53 Ibuprofen (Advil) 600 mg Q8H PRN ORAL For Pain 09/11/16 15:30 10/11/16 15:29 Insulin Aspart (NovoLOG) BEFORE MEALS AND HS SUBQ 09/11/16 16:30 10/11/16 16:29 Losartan Potassium (Cozaar) 50 mg DAILY ORAL 09/12/16 09:00 10/12/16 08:59 Methadone HCl 10 mg 10 mg BID ORAL 09/11/16 21:00 09/18/16 20:59 09/11/16 20:55 Morphine Sulfate (Morphine Sulfate) 2 mg EVERY 4 HOURS PRN IVP Moderate Pain (Pain Scale 4-6) 09/11/16 15:30 09/18/16 15:29 Nifedipine (Procardia XL) 90 mg DAILY ORAL 09/12/16 09:00 10/12/16 08:59 Nitroglycerin (Ntg) 0.4 mg Q 5 MINS PRN SL Prn Chest Pain 09/11/16 15:30 10/11/16 15:29 Ondansetron HCl (Zofran) 4 mg Q6H PRN IVP Nausea & Vomiting 09/11/16 15:30 10/11/16 15:29 Polyethylene Glycol (Miralax) 17 gm DAILYPRN PRN ORAL Constipation 09/11/16 15:30 10/11/16 15:29 Temazepam (Restoril) 15 mg HSPRN PRN ORAL Insomnia 09/11/16 15:30 09/18/16 15:29 Vancomycin HCl/ Dextrose (Vancomycin/D5W) 325 ml @ 162.5 mls/ hr ONCE ONCE IVPB 09/12/16 00:00 09/12/16 01:59 Assessment/Plan Problem List: (1) Venous ulcer of leg ICD Codes: I83.009 - Varicose veins of unspecified lower extremity with ulcer of unspecified site SNOMED: 558416507 Qualifiers: Qualified Codes: I83.019 - Varicose veins of right lower extremity with ulcer of unspecified site; I83.029 - Varicose veins of left lower extremity with ulcer of unspecified site (2) ESRD (end stage renal disease) on dialysis ICD Codes: N18.6 - End stage renal disease; Z99.2 - Dependence on renal dialysis SNOMED: [id number] (3) Cellulitis ICD Codes: L03.90 - Cellulitis, unspecified SNOMED: [id number] Qualifiers: Qualified Codes: L03.115 - Cellulitis of right lower limb Assessment/Plan surgical evaluation wound care iv abx Renal for HD pain management ANGELICA PARSON Sep 11, 2016 22:05
[2016-09-11] MEDS ORDERED: NEPHROVITE1 TAB ORAL (22:22)
[2016-09-11] MEDS ORDERED: NORCO 10-325 T1 EACH ORAL (22:22)
[2016-09-12] VITALS: BP 103/62
[2016-09-12] MEDS ORDERED: Vancomycin 1.5 GM in D5W 325 ML IVPB ONE ×2
[2016-09-12] MEDS ORDERED: Vancomycin 1 GM in D5W 275 ML IV SCH (00:30)
[2016-09-12] MEDS: Cefepime HCl 500 MG in D5W 55 ML IV SCH ×2 (01:20→22:22)
[2016-09-12 04:00] VITALS: BP 112/65
[2016-09-12] MEDS: NovoLOG Insulin Flexpen SUBQ SCH ×2 (05:47→11:30)
[2016-09-12] MEDS: DiphenhydrAMINE 50mg/ml Inj IVP PRN ×3 (05:57→20:24)
[2016-09-12 07:09] LABS: BASOPHILS % (AUTO) 0.9 % (0.0-2.0); EOSINOPHILS % (AUTO) 0.8 % (0.0-3.0); LYMPHOCYTES % (AUTO) 17.8 % (20.0-45.0); MEAN CORPUSCULAR HEMOGLOBIN 29.7 PG (27.0-31.0); MEAN CORPUSCULAR HGB CONC 32.2 G/DL (32.0-36.0); MEAN CORPUSCULAR VOLUME 92 FL (80-99); MEAN PLATELET VOLUME 5.2 FL (6.5-10.1); MONOCYTES % (AUTO) 12.8 % (1.0-10.0); NEUTROPHILS % (AUTO) 67.7 % (45.0-75.0); PLATELET COUNT 339 K/UL (150-450); RED BLOOD COUNT 3.17 M/UL (4.70-6.10); RED CELL DISTRIBUTION WIDTH 16.6 % (11.6-14.8); WHITE BLOOD COUNT 12.9 K/UL (4.8-10.8)
[2016-09-12 07:27] LABS: ALBUMIN/GLOBULIN RATIO 0.8 (1.0-2.7); CALCIUM 9.6 mg/dL (8.6-10.2); GLOMERULAR FILTRATION RATE 9.9 mL/min (>60); POTASSIUM 5.2 mEQ/L (3.4-4.9); TOTAL PROTEIN 8.1 g/dL (6.6-8.7)
[2016-09-12 08:00] VITALS: BP 109/56
[2016-09-12] MEDS: Aspirin EC 81mg tab ORAL SCH (08:51)
[2016-09-12] MEDS: Sensipar 30mg Tab ORAL SCH (08:51)
[2016-09-12] MEDS: Losartan 50mg tab ORAL SCH (08:52)
[2016-09-12] MEDS: Heparin 5000 units/ml inj SUBQ SCH ×2 (08:53→20:27)
[2016-09-12 11:52] VITALS: BP 134/84
--- NOTE | 2016-09-12 12:30 | Wound Care Consultation ---
Wound Assessment Wound Assessment #1: Wound Number: #1 Wound Present on Admission: Yes Wound Location Body Site Modif: right, lower Wound Location Body Site: leg - extending to anterior,posterior, medial and lateral Wound Type: vascular wound - non-healing scattered.entire lower leg circumference. Eldon Test: Does not Eldon Vascular Issues: venous bennett.w/color &texture change - edema Wound Thickness: Full Thickness Percent of Wound [place]/Red: 10 Percent of Wound Bed Yellow/Wh: 50 Percent of Wound Black/Brown: 40 Wound Drainage Description: Serosanguineous, Faint yellow, Green Wound Drainage Amount: Copious Wound Drainage Odor: Mild Odor Tissue Surrounding Wound: Macerated - irregular wound margins, brown staining to surroundng wound. Wound General Appearance: Reddened, Blackened, Draining, Necrotic Wound Assessment #2: Wound Number: #2 Wound Present on Admission: Yes New Wound: No Status Change of Wound: No Wound Location Body Site Modif: left, lower, anterior Wound Location Body Site: leg Wound Type: vascular wound Eldon Test: Does not Eldon Vascular Issues: venous bennett.w/color &texture change - with brown staining to lower leg and edema. Wound Thickness: Full Thickness Wound Length: 5.0 Wound Width: 1.5 Wound Depth: utd Percent of Wound [place]/Red: 10 Percent of Wound Bed Yellow/Wh: 90 Wound Drainage Description: Serosanguineous Wound Drainage Amount: Moderate Wound Drainage Odor: None/Absent Tissue Surrounding Wound: Macerated - irregular wound margins. Wound General Appearance: Reddened - yellow, Draining Wound Assessment #3: Wound Number: #3 Wound Present on Admission: Yes New Wound: No Status Change of Wound: No Wound Location Body Site Modif: right, dorsal - aspect of foot Wound Location Body Site: foot Wound Type: vascular wound Eldon Test: Does not [place] Wound Thickness: Full Thickness Wound Length: 1.0 Wound Width: 1.0 Wound Depth: utd Percent of Wound [place]/Red: 50 Percent of Wound Black/Brown: 50 Wound Drainage Description: Serosanguineous Wound Drainage Amount: Scant Wound Drainage Odor: None/Absent Tissue Surrounding Wound: Edematous Wound General Appearance: Reddened Wound Comment #1 Right lower leg extending to medial , anterior ,lateral and posterior. entire lower leg circumference scattered NON-HEALING vascular wound. #2 Left lower anterior leg vascular wound. #3 Right dorsal aspect of foot vascular wound. Recommendation. -Local wound care as ordered. -Keep clean and dry. -Turn and reposition. -Encourage offloading affected sites. -Optimize nutrition. -Avoid shear and friction. -Assess and notify MD for any further changes of condition to skin noted. NICOLASA CORONADO Sep 12, 2016 12:30
--- NOTE | 2016-09-12 13:46 | Diagnostic Imaging Report ---
APPROVED REPORT CPT Code: 72513 Present Symptoms Comments: Swelling and ulcers Technically difficult study due to sitting position and pain BILATERAL: Imaging reveals a patent deep venous system bilaterally. There is no evidence of thrombus within the femoral, popliteal or tibial segments. The greater saphenous veins are also within normal limits. Doppler indicates normal spontaneous flow within these segments.
--- NOTE | 2016-09-12 14:05 | Consultation ---
Consult Note Consult Note asked to eval for dialysis management - 56 YO Male presents to the ED c/o worsening of chronic venous stasis ulcer on the right leg. Pt. states he was sent to ED from [facility]. Pt states ulcer started over 3 months ago and was a single small blister. pt. now reports the ulcer to cover almost the entire posterior calf. pt. states he has a hx of ESRD and is on dialysis 3x per week MWF . pt. reports hx of HTN which ultimately damaged his kidneys. pt. reports 10/10 in severity right leg pain with bilateral LE edema that he states is chronic. Pt. denies trauma or fall. pt. states pain is exacerbated when he lays on a bed and pressure is put on the posterior calf. pt. reports letting his leg hang provides some minimal relief. Pt. states he has wound care with debridement performed at the nursing facility , however he was sent to ED today for suspicion that he may have to have his leg amputated. pt. denies Cough, fevers, chills, abdominal pain, or rashes. Denies CP, Palpitations, LOC, AMS, dizziness, Changes in Vision, Sensation, paresthesias, or a sudden severe headache. Hx Cardiac Problems: Yes - Heart failure, Hx Hypertension: Yes Hx Pacemaker: Yes Hx Gastrointestinal Problems: Yes - GERD Hx Dialysis: Yes - ESRD, Anemia in CKD, History Of Psychiatric Problem: Yes - Major depressive D/O Hx Alzheimer's Disease: Yes Hx Speech Problem: Yes Hx Syncope: Yes Hx Numbness: Yes - some numbness patient state just started Vital Signs Date Time Temp Pulse Resp B/P Pulse Ox O2 Delivery O2 Flow Rate FiO2 09/11/16 14:17 98.1 94 22 85/55 97 Room Air Sp02 EP Interpretation: reviewed, abnormal - low bp General Appearance: alert, GCS 15, non-toxic, mild distress, Chronically Ill Head: normocephalic, atraumatic Eyes: bilateral eye PERRL, bilateral eye normal inspection ENT: hearing grossly normal, normal pharynx, no angioedema, normal voice Neck: full range of motion, supple/symm/no masses Respiratory: lungs clear, normal breath sounds, speaking full sentences Cardiovascular #1: regular rate, rhythm, normal capillary refill, edema - bilateral LE non-pitting edema noted Cardiovascular #2: 2+ dorsalis pedis (R), 2+ dorsalis pedis (L) Musculoskeletal: back normal, normal range of motion, other - TTP, erythema of the bilateral LE with edema, are subcutaneous ulcers noted., tender - bilateral LE Neurologic: alert, oriented x3, responsive, motor strength/tone normal, sensory intact, speech normal Psychiatric: judgement/insight normal, memory normal, mood/affect normal Skin: warm/dry, well hydrated, other - large 10 cm cutaneous ulcer noted to the right posterior calf with necrotic character, surrounding erythema. there is a 3cm ulcers noted to the anterior right LE, and 2cm ulcer noted to the anterior left LE. non-pitting edema. . Assessment/Plan ESRD (end stage renal disease) on dialysis M W Fr Primary Impression: Venous ulcer of leg Cellulitis Cellulitis of right lower limb HTN Chronic Narcotic user Plan: HD in am- Adjust BP meds Diet renal Per consultants and wound care- ELSA RICHMOND Sep 12, 2016 14:05
[2016-09-12] MEDS ORDERED: Norco 7.5mg/325mg tab ORAL PRN (14:15)
--- NOTE | 2016-09-12 14:20 | General Progress Note ---
Assessment/Plan Assessment/Plan (1) ESRD of Dialysis (2) Non healing ulcer of right lower extremity (3) Intractable pain (4) Multiple joint arthritis (5) Peripheral vascular disease The patient will be continued on methadone, [place] and Dilaudid. The patient was discussed with Dr. Byrne and Dr. Byrne concurred. Thank you for the courtesy of this consultation. Subjective Date patient seen: Sep 12, 2016 Time patient seen: 02:15 - pm Allergies: Coded Allergies: No Known Allergies (Unverified , 08/31/15) Subjective REVIEW OF SYSTEMS: Denies rash, fever, chills, sweating, dizziness, drowsiness, blurred vision, sore throat, or change in weight. No shortness of breath or chest pain. No nausea, vomiting, diarrhea or blood in the stool or urine. No bowel or bladder incontinence. He is complaining of generalized body pain. SUBJECTIVE: Pt is a known pt from prior admission. He has returned with severe pain in his right leg. On Dilaudid 2mg IV Q4H PRN severe pain, [place] 7.5/325mg PO 1 tab Q4H PRN moderate pain and Methadone 10mg BID. Pain has been tolerated on the medications. Objective Last 24 Hour Vital Signs Date Time Temp Pulse Resp B/P Pulse Ox O2 Delivery O2 Flow Rate FiO2 09/12/16 11:52 98.2 104 18 134/84 98 Room Air 09/12/16 10:38 97.9 09/12/16 08:52 109/56 09/12/16 08:51 108 109/56 09/12/16 08:00 97.9 108 18 109/56 99 Room Air 09/12/16 04:00 97.7 91 18 112/65 99 Room Air 09/12/16 00:00 97.7 104 16 103/62 97 09/11/16 21:46 96.3 92 19 114/59 96 Room Air 09/11/16 21:30 98.6 94 22 100/54 99 Room Air 09/11/16 21:03 98.6 94 22 100/54 99 Room Air 09/11/16 19:33 98.6 91 22 99/63 97 Room Air 09/11/16 15:09 98.1 22 85/55 97 Room Air Intake and Output 09/11/16 09/12/16 19:00 07:00 Intake Total 455 ml Output Total 0 ml Balance 455 ml Intake Oral 400 ml IV Total 55 ml Output Urine Total 0 ml # Voids 1 Laboratory Tests 09/11/16 15:30: White Blood Count 12.7H, Red Blood Count 3.18L, Hemoglobin 9.2L, Hematocrit 28.3L, Mean Corpuscular Volume 89, Mean Corpuscular Hemoglobin 28.9, Mean Corpuscular Hemoglobin Concent 32.4, Red Cell Distribution Width 15.9H, Platelet Count 331, Mean Platelet Volume 4.9L, Neutrophils (%) (Auto) 75.6H, Lymphocytes (%) (Auto) 12.1L, Monocytes (%) (Auto) 10.5H, Eosinophils (%) (Auto ) 0.0, Basophils (%) (Auto) 1.8, Sodium Level 137, Potassium Level 5.0H, Chloride Level 91L, Carbon Dioxide Level 24, Anion Gap 22H, Blood Urea Nitrogen 40H, Creatinine 5.5H, Estimat Glomerular Filtration Rate 13.1, Glucose Level 85 , Lactic Acid Level 1.80, Calcium Level 9.4, Total Bilirubin 0.2, Aspartate Amino Transf (AST/SGOT) 18, Alanine Aminotransferase (ALT/SGPT) 10, Alkaline Phosphatase 118, Total Protein 7.9, Albumin 3.7, Globulin 4.2, Albumin/Globulin Ratio 0.8L 09/12/16 05:30: White Blood Count 12.9H, Red Blood Count 3.17L, Hemoglobin 9.4L, Hematocrit 29.3L, Mean Corpuscular Volume 92, Mean Corpuscular Hemoglobin 29.7, Mean Corpuscular Hemoglobin Concent 32.2, Red Cell Distribution Width 16.6H, Platelet Count 339, Mean Platelet Volume 5.2L, Neutrophils (%) (Auto) 67.7, Lymphocytes (%) (Auto) 17.8L, Monocytes (%) (Auto) 12.8H, Eosinophils (%) (Auto ) 0.8, Basophils (%) (Auto) 0.9, Sodium Level 136, Potassium Level 5.2H, Chloride Level 91L, Carbon Dioxide Level 25, Anion Gap 20H, Blood Urea Nitrogen 49H, Creatinine 7.0H, Estimat Glomerular Filtration Rate 9.9, Glucose Level 87, Calcium Level 9.6, Total Bilirubin 0.2, Aspartate Amino Transf (AST/SGOT) 15, Alanine Aminotransferase (ALT/SGPT) 9, Alkaline Phosphatase 114, Total Protein 8.1, Albumin 3.6, Globulin 4.5, Albumin/Globulin Ratio 0.8L Height (Feet): 5 Height (Inches): 6.00 Weight (Pounds): 170 Objective GENERAL: Alert, awake, and oriented. HEENT: PERRLA. NECK: Range of motion is decreased due to the patient's clinical condition with tenderness to paracervical muscles. No adenopathy LUNGS: Decreased breath sounds bilaterally. HEART: Regular. ABDOMEN: Obese. BACK: Range of motion is decreased in flexion and extension with tenderness to paraspinal muscles. No tenderness to trapezius or rhomboid muscles. EXTREMITIES: No cyanosis. There is severe edema noted in bilateral lower extremities. Necrotic wound noted on the right jackson with bandages applied and tenderness to palpation. NERUO: No changes. JUSTUS MALDONADO Sep 12, 2016 14:20
[2016-09-12] MEDS ORDERED: cloNIDine 0.2mg Tab GT PRN (15:00)
[2016-09-12] MEDS ORDERED: NS 275ml ONE (15:21)
[2016-09-12] MEDS ORDERED: Tubing IV Secondary IV ONE (15:21)
[2016-09-12 15:54] VITALS: BP 110/70
[2016-09-12] MEDS: Docusate 100mg cap ORAL SCH (18:00)
--- NOTE | 2016-09-12 18:27 | Pulmonology Progress Note ---
Assessment/Plan Problems: (1) Venous ulcer of leg (2) ESRD (end stage renal disease) on dialysis (3) Cellulitis Assessment/Plan wound care iv antibiotics surgical evaluation Subjective ROS Limited/Unobtainable: No Allergies: Coded Allergies: No Known Allergies (Unverified , 08/31/15) Objective Last 24 Hour Vital Signs Date Time Temp Pulse Resp B/P Pulse Ox O2 Delivery O2 Flow Rate FiO2 09/12/16 15:54 97.2 95 18 110/70 100 Room Air 09/12/16 14:51 98.2 09/12/16 11:52 98.2 104 18 134/84 98 Room Air 09/12/16 08:52 109/56 09/12/16 08:51 108 109/56 09/12/16 08:00 97.9 108 18 109/56 99 Room Air 09/12/16 04:00 97.7 91 18 112/65 99 Room Air 09/12/16 00:00 97.7 104 16 103/62 97 09/11/16 21:46 96.3 92 19 114/59 96 Room Air 09/11/16 21:30 98.6 94 22 100/54 99 Room Air 09/11/16 21:03 98.6 94 22 100/54 99 Room Air 09/11/16 19:33 98.6 91 22 99/63 97 Room Air Intake and Output 09/11/16 09/12/16 19:00 07:00 Intake Total 455 ml Output Total 0 ml Balance 455 ml Intake Oral 400 ml IV Total 55 ml Output Urine Total 0 ml # Voids 1 General Appearance: WD/WN HEENT: normocephalic, atraumatic Respiratory/Chest: chest wall non-tender, lungs clear Cardiovascular: normal peripheral pulses, normal rate Abdomen: normal bowel sounds, soft, non tender Extremities: no cyanosis Laboratory Tests 09/12/16 05:30: White Blood Count 12.9H, Red Blood Count 3.17L, Hemoglobin 9.4L, Hematocrit 29.3L, Mean Corpuscular Volume 92, Mean Corpuscular Hemoglobin 29.7, Mean Corpuscular Hemoglobin Concent 32.2, Red Cell Distribution Width 16.6H, Platelet Count 339, Mean Platelet Volume 5.2L, Neutrophils (%) (Auto) 67.7, Lymphocytes (%) (Auto) 17.8L, Monocytes (%) (Auto) 12.8H, Eosinophils (%) (Auto ) 0.8, Basophils (%) (Auto) 0.9, Sodium Level 136, Potassium Level 5.2H, Chloride Level 91L, Carbon Dioxide Level 25, Anion Gap 20H, Blood Urea Nitrogen 49H, Creatinine 7.0H, Estimat Glomerular Filtration Rate 9.9, Glucose Level 87, Calcium Level 9.6, Total Bilirubin 0.2, Aspartate Amino Transf (AST/SGOT) 15, Alanine Aminotransferase (ALT/SGPT) 9, Alkaline Phosphatase 114, Total Protein 8.1, Albumin 3.6, Globulin 4.5, Albumin/Globulin Ratio 0.8L Current Medications Medications (Trade) Dose Ordered Sig/Hilary Route PRN Reason Start Time Stop Time Status Last Admin Dose Admin Acetaminophen (Tylenol) 650 mg Q4H PRN ORAL fever 09/11/16 15:30 10/11/16 15:29 Acetaminophen (Tylenol) 650 mg Q4H PRN ORAL Mild Pain (Pain Scale 1-3) 09/12/16 14:15 10/12/16 14:14 Acetaminophen/ Hydrocodone Bitart ([place] 7.5/325) 1 ea Q4H PRN ORAL For Pain moderate 4-6 09/12/16 14:15 09/19/16 14:14 Albuterol/ Ipratropium (DuoNeb 0.5-3(2.5)mg/3ml) 3 ml EVERY 4 HOURS PRN HHN Shortness of Breath 09/11/16 15:30 09/16/16 15:29 Aspirin (Ecotrin) 81 mg DAILY ORAL 09/12/16 09:00 10/12/16 08:59 09/12/16 08:51 Atorvastatin Calcium (Lipitor) 80 mg QHS ORAL 09/12/16 21:00 10/12/16 20:59 Cefepime HCl/ Dextrose (Maxipime/D5W) 55 ml @ 110 mls/hr Q24H IV 09/11/16 23:00 09/18/16 22:59 09/12/16 01:20 Cinacalcet (Sensipar) 30 mg DAILY ORAL 09/12/16 09:00 10/12/16 08:59 09/12/16 08:51 Clonidine HCl (Catapres) 0.1 mg Q4H PRN GT For High Blood Pressure> 160 09/12/16 15:00 10/12/16 14:59 Diphenhydramine HCl (Benadryl) 50 mg Q6HR PRN IVP Itching 09/11/16 15:30 10/11/16 15:29 09/12/16 14:21 Docusate Sodium (Colace) 100 mg TID ORAL 09/12/16 18:00 10/12/16 17:59 Heparin Sodium (Porcine) (Heparin 5000 units/ml) 5,000 units EVERY 12 HOURS SUBQ 09/11/16 22:00 10/11/16 21:59 09/12/16 08:53 Hydromorphone HCl (Dilaudid) 2 mg Q4H PRN IV severe pain 7-09/11/16 15:30 09/18/16 15:29 09/12/16 18:16 Isosorbide Mononitrate (Imdur) 30 mg DAILY ORAL 09/13/16 09:00 10/13/16 08:59 Labetalol HCl (Normodyne) 200 mg EVERY 12 HOURS GT 09/12/16 21:00 10/12/16 20:59 Losartan Potassium (Cozaar) 50 mg DAILY ORAL 09/12/16 09:00 10/12/16 08:59 09/12/16 08:52 Methadone HCl 10 mg 10 mg BID ORAL 09/11/16 21:00 09/18/16 20:59 09/12/16 18:16 Nifedipine (Procardia XL) 30 mg DAILY ORAL 09/13/16 09:00 10/13/16 08:59 Nitroglycerin (Ntg) 0.4 mg Q 5 MINS PRN SL Prn Chest Pain 09/11/16 15:30 10/11/16 15:29 Ondansetron HCl (Zofran) 4 mg Q6H PRN IVP Nausea & Vomiting 09/11/16 15:30 10/11/16 15:29 Pantoprazole (Protonix) 40 mg BID ORAL 09/12/16 18:00 10/12/16 17:59 09/12/16 18:16 Polyethylene Glycol (Miralax) 17 gm DAILYPRN PRN ORAL Constipation 09/11/16 15:30 10/11/16 15:29 Sertraline HCl (Zoloft) 50 mg DAILY ORAL 09/13/16 09:00 10/13/16 08:59 Sevelamer Carbonate (Renvela) 3,200 mg THREE TIMES A DAY ORAL 09/12/16 18:00 10/12/16 17:59 09/12/16 18:16 Temazepam (Restoril) 15 mg HSPRN PRN ORAL Insomnia 09/11/16 15:30 09/18/16 15:29 09/12/16 01:57 ANGELICA PARSON Sep 12, 2016 18:27
--- NOTE | 2016-09-12 18:45 | Consultation ---
Consult Note Assessment/Plan ID Dic # [id number] ASSESSMENT: 56 y/o male with: // ? f wound infection and cellulitis - doppler(-) DVT // Leukocytosis, mild afebrile // Wnd cx : colonization ( PSA , CoNS and Diphtheroids ) // ESRD / HD with RUE AVF // Isolated ALP elevation - GGT WNL // Chronic pain syndrome, on methadone // h/o MRSA, VRE colonization // NKDA // Full Code PLAN: - cont on IV Vanco and Cefepime d # 1 ( 08/15 SP DC on IV vancomycin, cefepime d # 1 ) - monitor CBC, temperatures - monitor BMP - wound care KHOA ADAME M.D. Sep 12, 2016 18:45
[2016-09-12 19:53] VITALS: BP 105/66
[2016-09-12] MEDS: Atorvastatin 80mg tab ORAL SCH (20:24)
[2016-09-12] MEDS: Labetalol 200mg tab GT SCH (20:25)
[2016-09-13 00:04] VITALS: BP 122/93
[2016-09-13 04:43] VITALS: BP 114/91
[2016-09-13 07:25] LABS: BASOPHILS % (AUTO) 0.8 % (0.0-2.0); EOSINOPHILS % (AUTO) 1.2 % (0.0-3.0); LYMPHOCYTES % (AUTO) 14.5 % (20.0-45.0); MEAN CORPUSCULAR HEMOGLOBIN 29.1 PG (27.0-31.0); MEAN CORPUSCULAR HGB CONC 31.5 G/DL (32.0-36.0); MEAN CORPUSCULAR VOLUME 92 FL (80-99); MEAN PLATELET VOLUME 4.8 FL (6.5-10.1); MONOCYTES % (AUTO) 9.7 % (1.0-10.0); NEUTROPHILS % (AUTO) 73.8 % (45.0-75.0); PLATELET COUNT 334 K/UL (150-450); RED BLOOD COUNT 3.14 M/UL (4.70-6.10); RED CELL DISTRIBUTION WIDTH 17.2 % (11.6-14.8); WHITE BLOOD COUNT 11.8 K/UL (4.8-10.8)
[2016-09-13 07:52] LABS: HEMOGLOBIN A1C 5.2 % (< 6.0)
[2016-09-13 07:57] LABS: ALANINE AMINOTRANSFERASE 10 U/L (3-41); ALBUMIN/GLOBULIN RATIO 0.7 (1.0-2.7); ANION GAP 21 (5-15); ASPARTATE AMINO TRANSFERASE 19 U/L (5-40); CALCIUM 9.7 mg/dL (8.6-10.2); CARBON DIOXIDE 24 mEQ/L (20-30); CHLORIDE 88 mEQ/L (98-107); CHOLESTEROL 101 mg/dL (< 200); CHOLESTEROL/HDL RATIO 1.9 (3.3-4.4); CREATININE 9.1 mg/dL (0.7-1.2); CRP QUANT 16.5 mg/dL (< 0.5); GLOMERULAR FILTRATION RATE 7.3 mL/min (>60); HEMOLYSIS 28; LDL CHOLESTEROL (CALC.) 29 mg/dL (60-99); MAGNESIUM 2.7 mg/dL (1.7-2.5); PHOSPHORUS 4.8 mg/dL (2.5-4.8); POTASSIUM 5.4 mEQ/L (3.4-4.9); SODIUM 133 mEQ/L (135-145); TOTAL PROTEIN 8.2 g/dL (6.6-8.7); URIC ACID 6.7 mg/dL (3.0-7.5)
[2016-09-13 08:00] VITALS: BP 126/86
[2016-09-13] MEDS ORDERED: Sertraline 50mg tab ORAL SCH (09:00)
--- NOTE | 2016-09-13 09:06 | General Progress Note ---
Assessment/Plan Assessment/Plan (1) ESRD of Dialysis (2) Non healing ulcer of right lower extremity (3) Intractable pain (4) Multiple joint arthritis (5) Peripheral vascular disease (6) Left shoulder pain The patient will be continued on methadone, [place] and Dilaudid. We will order Xray of left shoulder to r/o any Pathology. The patient was discussed with Dr. Byrne and Dr. Byrne concurred. Subjective Date patient seen: Sep 13, 2016 Time patient seen: 07:00 - am Allergies: Coded Allergies: No Known Allergies (Unverified , 08/31/15) Subjective REVIEW OF SYSTEMS: Denies rash, fever, chills, sweating, dizziness, drowsiness, blurred vision, sore throat, or change in weight. No shortness of breath or chest pain. No nausea, vomiting, diarrhea or blood in the stool or urine. No bowel or bladder incontinence. He is complaining of generalized body pain. SUBJECTIVE: Pt reports that his pain is stable on the medications. However he now has c/o left shoulder pain and feels that the shoulder is dislocated. Objective Last 24 Hour Vital Signs Date Time Temp Pulse Resp B/P Pulse Ox O2 Delivery O2 Flow Rate FiO2 09/13/16 07:07 98.2 09/13/16 04:43 98.2 63 21 114/91 91 Room Air 09/13/16 00:04 97.9 102 18 122/93 93 Room Air 09/12/16 20:25 100 105/66 09/12/16 19:53 98.2 100 17 105/66 96 Room Air 09/12/16 15:54 97.2 95 18 110/70 100 Room Air 09/12/16 11:52 98.2 104 18 134/84 98 Room Air Intake and Output 09/12/16 09/13/16 19:00 07:00 Intake Total 480 ml 55 ml Balance 480 ml 55 ml Intake Oral 480 ml IV Total 55 ml # Voids 3 Laboratory Tests 09/13/16 06:00: White Blood Count 11.8H, Red Blood Count 3.14L, Hemoglobin 9.1L, Hematocrit 28.9L, Mean Corpuscular Volume 92, Mean Corpuscular Hemoglobin 29.1, Mean Corpuscular Hemoglobin Concent 31.5L, Red Cell Distribution Width 17.2H, Platelet Count 334, Mean Platelet Volume 4.8L, Neutrophils (%) (Auto) 73.8, Lymphocytes (%) (Auto) 14.5L, Monocytes (%) (Auto) 9.7, Eosinophils (%) (Auto) 1.2, Basophils (%) (Auto) 0.8, Sodium Level 133L, Potassium Level 5.4H, Chloride Level 88L, Carbon Dioxide Level 24, Anion Gap 21H, Blood Urea Nitrogen 67H, Creatinine 9.1H, Estimat Glomerular Filtration Rate 7.3, Glucose Level 98, Hemoglobin A1c 5.2, Uric Acid 6.7, Calcium Level 9.7, Phosphorus Level 4.8, Magnesium Level 2.7H, Total Bilirubin < 0.2, Gamma Glutamyl Transpeptidase 27, Aspartate Amino Transf (AST/SGOT) 19, Alanine Aminotransferase (ALT/SGPT) 10, Alkaline Phosphatase 113, Total Creatine Kinase 77, C-Reactive Protein, Quantitative 16.5H, Pro-B-Type Natriuretic Peptide 67039P, Total Protein 8.2, Albumin 3.6, Globulin 4.6, Albumin/Globulin Ratio 0.7L, Triglycerides Level 95, Cholesterol Level 101, LDL Cholesterol 29L, HDL Cholesterol 53, Cholesterol/HDL Ratio 1.9L, Vitamin B12 Level 719, Thyroid Stimulating Hormone (TSH) 3.620, Random Vancomycin Level 26.2 Height (Feet): 5 Height (Inches): 6.00 Weight (Pounds): 170 Objective GENERAL: Alert, awake, and oriented. HEENT: PERRLA. NECK: Range of motion is decreased due to the patient's clinical condition with tenderness to paracervical muscles. No adenopathy LUNGS: Decreased breath sounds bilaterally. HEART: Regular. ABDOMEN: Obese. BACK: Range of motion is decreased in flexion and extension with tenderness to paraspinal muscles. No tenderness to trapezius or rhomboid muscles. EXTREMITIES: No cyanosis. There is severe edema noted in bilateral lower extremities. Necrotic wound noted on the right jackson with bandages applied and tenderness to palpation. NERUO: No changes. JUSTUS MALDONADO Sep 13, 2016 09:06
[2016-09-13] MEDS: Imdur 30mg tab ORAL SCH (09:29)
[2016-09-13] MEDS: Losartan 50mg tab ORAL SCH (09:30)
[2016-09-13] MEDS: Docusate 100mg cap ORAL SCH ×3 (09:31→18:10)
[2016-09-13] MEDS: Aspirin EC 81mg tab ORAL SCH (09:31)
[2016-09-13] MEDS: Labetalol 200mg tab GT SCH ×2 (09:31→21:00)
[2016-09-13] MEDS: Sensipar 30mg Tab ORAL SCH (09:31)
[2016-09-13] MEDS: Heparin 5000 units/ml inj SUBQ SCH ×2 (09:33→21:00)
--- NOTE | 2016-09-13 09:45 | General Progress Note ---
Assessment/Plan Status: unchanged Assessment/Plan ESRD (end stage renal disease) on dialysis M W F Primary Impression: Venous ulcer of leg Cellulitis Cellulitis of right lower limb HTN Chronic Narcotic user Plan: HD today Adjust BP meds Diet renal Per consultants and wound care- Subjective ROS Limited/Unobtainable: No Constitutional: Reports: malaise Allergies: Coded Allergies: No Known Allergies (Unverified , 08/31/15) Objective Last 24 Hour Vital Signs Date Time Temp Pulse Resp B/P Pulse Ox O2 Delivery O2 Flow Rate FiO2 09/13/16 09:32 98 126/86 09/13/16 09:31 98 126/86 09/13/16 09:30 126/86 09/13/16 09:29 126/86 09/13/16 07:07 98.2 09/13/16 04:43 98.2 63 21 114/91 91 Room Air 09/13/16 00:04 97.9 102 18 122/93 93 Room Air 09/12/16 20:25 100 105/66 09/12/16 19:53 98.2 100 17 105/66 96 Room Air 09/12/16 15:54 97.2 95 18 110/70 100 Room Air 09/12/16 11:52 98.2 104 18 134/84 98 Room Air Intake and Output 09/12/16 09/13/16 19:00 07:00 Intake Total 480 ml 55 ml Balance 480 ml 55 ml Intake Oral 480 ml IV Total 55 ml # Voids 3 Laboratory Tests 09/13/16 06:00: White Blood Count 11.8H, Red Blood Count 3.14L, Hemoglobin 9.1L, Hematocrit 28.9L, Mean Corpuscular Volume 92, Mean Corpuscular Hemoglobin 29.1, Mean Corpuscular Hemoglobin Concent 31.5L, Red Cell Distribution Width 17.2H, Platelet Count 334, Mean Platelet Volume 4.8L, Neutrophils (%) (Auto) 73.8, Lymphocytes (%) (Auto) 14.5L, Monocytes (%) (Auto) 9.7, Eosinophils (%) (Auto) 1.2, Basophils (%) (Auto) 0.8, Sodium Level 133L, Potassium Level 5.4H, Chloride Level 88L, Carbon Dioxide Level 24, Anion Gap 21H, Blood Urea Nitrogen 67H, Creatinine 9.1H, Estimat Glomerular Filtration Rate 7.3, Glucose Level 98, Hemoglobin A1c 5.2, Uric Acid 6.7, Calcium Level 9.7, Phosphorus Level 4.8, Magnesium Level 2.7H, Total Bilirubin < 0.2, Gamma Glutamyl Transpeptidase 27, Aspartate Amino Transf (AST/SGOT) 19, Alanine Aminotransferase (ALT/SGPT) 10, Alkaline Phosphatase 113, Total Creatine Kinase 77, C-Reactive Protein, Quantitative 16.5H, Pro-B-Type Natriuretic Peptide 76216O, Total Protein 8.2, Albumin 3.6, Globulin 4.6, Albumin/Globulin Ratio 0.7L, Triglycerides Level 95, Cholesterol Level 101, LDL Cholesterol 29L, HDL Cholesterol 53, Cholesterol/HDL Ratio 1.9L, Vitamin B12 Level 719, Thyroid Stimulating Hormone (TSH) 3.620, Random Vancomycin Level 26.2 Height (Feet): 5 Height (Inches): 6.00 Weight (Pounds): 170 General Appearance: no apparent distress Objective other PE not changed ELSA RICHMOND Sep 13, 2016 09:45
[2016-09-13] MEDS: DiphenhydrAMINE 50mg/ml Inj IVP PRN (10:47)
[2016-09-13 12:00] VITALS: BP 123/81
--- NOTE | 2016-09-13 14:13 | Consultation ---
History of Present Illness General Date patient seen: Sep 13, 2016 Chief Complaint: Pain Reason for Consultation: right lower extremity wounds Present Illness HPI 56 year old male with multiple medical comorbidities as noted below currently admitted for medical management. Patient noted to have large chronic wound on right lower extremity. Called to evaluate wound. please refer to H&P for admission details. when talking with patient, he states that he has had wounds on his right leg for weeks now. does not recall when or how it began but remembers it slowly worsening. has had wound care when in facility but not consistent. does not care for wound himself. Allergies: Coded Allergies: No Known Allergies (Unverified , 08/31/15) Medication History Scheduled Aspirin (Aspirin EC), 81 MG ORAL DAILY, (Reported) Atorvastatin Calcium* (Lipitor*), 80 MG ORAL DAILY, (Reported) Cinacalcet* (Sensipar*), 30 MG ORAL DAILY, (Reported) Doxycycline Monohydrate* (Doxycycline Monohydrate*), 100 MG ORAL Q12HR, ( Reported) Famotidine (Famotidine), 20 MG ORAL TWICE A DAY, (Reported) Gabapentin* (Gabapentin*), 100 MG ORAL DAILY, (Reported) Isosorbide Mononitrate (Isosorbide Mononitrate Er), 30 MG PO DAILY, (Reported) Labetalol Hcl* (Normodyne*), 200 MG ORAL EVERY 12 HOURS, (Reported) Nifedipine Er* (Nifedipine Er*), 90 MG ORAL DAILY, (Reported) Sertraline Hcl* (Zoloft*), 50 MG ORAL DAILY, (Reported) Sevelamer Carbonate (Renvela), 3,200 MG ORAL THREE TIMES A DAY, (Reported) Valsartan (Diovan), 320 MG ORAL DAILY, (Reported) Vitamin B Cmplx/Vit C/Folic AC (Nephro-Ruby Tablet), 1 TAB ORAL DAILY, (Reported ) Zinc Sulfate (Zinc Sulfate*), 220 MG ORAL DAILY, (Reported) Scheduled PRN Acetaminophen* (Acetaminophen 325MG Tablet*), 650 MG ORAL Q4H PRN for Mild Pain (Pain Scale 1-3), (Reported) Hydrocodone Bit/Acetaminophen 10-325* (Culver 10-325*), 1 TAB ORAL Q6H PRN for For Pain, (Reported) Methadone Hcl* (Methadone*), 10 MG PO BID PRN for Moderate Pain (Pain Scale 4-6) , (Reported) Discontinued Medications Amino Acids/Protein Hydrolys (Pro-Stat Liquid), 30 ML ORAL DAILY, (Reported) Discontinued Reason: Pt stopped taking med Ascorbic Acid* (Vitamin C*), 500 MG ORAL DAILY, (Reported) Discontinued Reason: Pt stopped taking med Bisacodyl* (Dulcolax*), 5 MG ORAL BID, (Reported) Discontinued Reason: Pt stopped taking med Calcium Acetate (Calcium Acetate), 1,334 MG PO BID, (Reported) Discontinued Reason: Pt stopped taking med Calcium Acetate (Calcium Acetate), 667 MG PO TID, (Reported) Discontinued Reason: Pt stopped taking med Carvedilol* (Carvedilol*), 25 MG ORAL EVERY 12 HOURS, (Reported) Discontinued Reason: Pt stopped taking med Cefepime Hcl/D5w (Cefepime-Dextrose 1 Gm/50 Ml), 500 MG IVPB Q24H, (Reported) Discontinued Reason: Therapy completed Cephalexin* (Keflex*), 500 MG ORAL EVERY 12 HOURS Discontinued Reason: Therapy completed Clonidine Hcl (Clonidine Hcl), 0.2 MG PO Q4HR, (Reported) Discontinued Reason: Pt stopped taking med Clonidine Hcl* (Catapres*), 0.1 MG ORAL EVERY 4 HOURS PRN for For High Blood Pressure, (Reported) Discontinued Reason: Pt stopped taking med Dextran 70/Hypromellose (Artificial Tears Eye Drops*), 1 DROP BOTH EYES BID, ( Reported) Discontinued Reason: Pt stopped taking med Diphenhydramine Hcl* (Benadryl*), 50 MG ORAL Q6H PRN for Itching, (Reported) Discontinued Reason: Pt stopped taking med Diphenhydramine Hcl* (Diphenhydramine Hcl*), 25 MG ORAL Q6H PRN for Itching, ( Reported) Discontinued Reason: Pt stopped taking med Guaifenesin/Dextromethorphan (Robitussin Cough-Chest Dm Liq), 10 ML PO EVERY 4 HOURS PRN for For Cough, (Reported) Discontinued Reason: Pt stopped taking med Heparin Sod (Porcine) (Heparin Sodium*), 5,000 UNITS SUBQ EVERY 12 HOURS, ( Reported) Discontinued Reason: Pt stopped taking med Hydrocodone Bit/Acetaminophen 10-325* (Hydrocodon-Acetaminophn 10-325*), 1 TAB ORAL Q6H PRN for Pain Scale (6-10), (Reported) Discontinued Reason: Pt stopped taking med Hydrocodone Bit/Acetaminophen 5-325* (Culver 5-325*), 1 TAB ORAL EVERY 8 HOURS PRN for For Pain, (Reported) Discontinued Reason: Pt stopped taking med Hydroxyzine Hcl (Hydroxyzine Hcl), 50 MG PO EVERY 6 HOURS, (Reported) Discontinued Reason: Pt stopped taking med Lorazepam* (Lorazepam*), 0.5 MG IV Q4H PRN for For Anxiety, (Reported) Discontinued Reason: Pt stopped taking med Losartan Potassium* (Losartan Potassium*), 100 MG ORAL DAILY, (Reported) Discontinued Reason: Pt stopped taking med Morphine Sulfate (Morphine Sulfate), 1 MG IVP EVERY 4 HOURS PRN for Severe Pain (Pain Scale 7-10), (Reported) Discontinued Reason: Pt stopped taking med Ondansetron (Zofran), 4 MG ORAL Q6HR PRN for Nausea & Vomiting, (Reported) Discontinued Reason: Pt stopped taking med Ondansetron Hcl* (Zofran*), 4 MG IVP Q6H PRN for Nausea & Vomiting, (Reported) Discontinued Reason: Pt stopped taking med Polyethylene Glycol 3350* (Miralax*), 17 GM ORAL HS PRN for prn, (Reported) Discontinued Reason: Pt stopped taking med Silver Sulfadiazine (Silver Sulfadiazine), 400 GM TP, (Reported) Discontinued Reason: Pt stopped taking med Vancomycin Hcl/D5w (Vancomycin-D5w 1 G/250 Ml), 0 IVPB pharmacy to dose, ( Reported) Discontinued Reason: Therapy completed Vitamins A And D (Vitamin A And D), 1 APPLIC TOPIC EVERY 12 HOURS, (Reported) Discontinued Reason: Pt stopped taking med Zolpidem Tartrate* (Zolpidem Tartrate*), 5 MG ORAL BEDTIME PRN for Insomnia, ( Reported) Discontinued Reason: Pt stopped taking med Patient History History Provided By: Patient Healthcare decision maker Resuscitation status Full Code Advanced Directive on File Past Medical/Surgical History Past Medical/Surgical History: (1) Acromioclavicular joint separation (2) Injury of upper extremity (3) Atrial fibrillation with RVR (4) Postoperative bleeding from incision (5) Encounter for wound care of surgical pin site (6) Traumatic leg ulcer (7) Abdominal gas pain (8) Abdominal pain (9) Accelerated hypertension (10) Troponin level elevated (11) Leg edema, left (12) Hyperkalemia (13) DVT (deep venous thrombosis) (14) Venous ulcer of leg (15) Cellulitis (16) ESRD (end stage renal disease) on dialysis Review of Systems All Other Systems: negative except mentioned in HPI Physical Exam General Appearance: no apparent distress, alert HEENT: PERRL Neck: normal inspection Respiratory/Chest: normal breath sounds, no respiratory distress, no accessory muscle use Cardiovascular/Chest: normal rate, regular rhythm Abdomen: normal bowel sounds, non tender, soft, no organomegaly Extremities: normal range of motion, slow capillary refill, moderate edema, other - right posterior distal leg with large chronic venous stasis ulcer that has areas of necrotic and fibrinous tissue. Neurologic: alert, oriented x 3, responsive Last 24 Hour Vital Signs Date Time Temp Pulse Resp B/P Pulse Ox O2 Delivery O2 Flow Rate FiO2 09/13/16 12:40 Room Air 09/13/16 12:00 97.0 100 21 123/81 98 Room Air 09/13/16 11:17 98.0 09/13/16 09:32 98 126/86 09/13/16 09:31 98 126/86 09/13/16 09:30 126/86 09/13/16 09:29 126/86 09/13/16 08:00 98.0 95 21 126/86 98 Room Air 09/13/16 04:43 98.2 63 21 114/91 91 Room Air 09/13/16 00:04 97.9 102 18 122/93 93 Room Air 09/12/16 20:25 100 105/66 09/12/16 19:53 98.2 100 17 105/66 96 Room Air 09/12/16 15:54 97.2 95 18 110/70 100 Room Air Intake and Output 09/12/16 09/13/16 19:00 07:00 Intake Total 480 ml 55 ml Balance 480 ml 55 ml Intake Oral 480 ml IV Total 55 ml # Voids 3 Laboratory Tests Test 09/13/16 06:00 White Blood Count 11.8 K/UL (4.8-10.8) H Red Blood Count 3.14 M/UL (4.70-6.10) L Hemoglobin 9.1 G/DL (14.2-18.0) L Hematocrit 28.9 % (42.0-52.0) L Mean Corpuscular Volume 92 FL (80-99) Mean Corpuscular Hemoglobin 29.1 PG (27.0-31.0) Mean Corpuscular Hemoglobin Concent 31.5 G/DL (32.0-36.0) L Red Cell Distribution Width 17.2 % (11.6-14.8) H Platelet Count 334 K/UL (150-450) Mean Platelet Volume 4.8 FL (6.5-10.1) L Neutrophils (%) (Auto) 73.8 % (45.0-75.0) Lymphocytes (%) (Auto) 14.5 % (20.0-45.0) L Monocytes (%) (Auto) 9.7 % (1.0-10.0) Eosinophils (%) (Auto) 1.2 % (0.0-3.0) Basophils (%) (Auto) 0.8 % (0.0-2.0) Sodium Level 133 mEQ/L (135-145) L Potassium Level 5.4 mEQ/L (3.4-4.9) H Chloride Level 88 mEQ/L (98-107) L Carbon Dioxide Level 24 mEQ/L (20-30) Anion Gap 21 (5-15) H Blood Urea Nitrogen 67 mg/dL (7-23) H Creatinine 9.1 mg/dL (0.7-1.2) H Estimat Glomerular Filtration Rate 7.3 mL/min (>60) Glucose Level 98 mg/dL (74-106) Hemoglobin A1c 5.2 % (< 6.0) Uric Acid 6.7 mg/dL (3.0-7.5) Calcium Level 9.7 mg/dL (8.6-10.2) Phosphorus Level 4.8 mg/dL (2.5-4.8) Magnesium Level 2.7 mg/dL (1.7-2.5) H Total Bilirubin < 0.2 mg/dL (0.0-1.2) Gamma Glutamyl Transpeptidase 27 U/L (8-61) Aspartate Amino Transf (AST/SGOT) 19 U/L (5-40) Alanine Aminotransferase (ALT/SGPT) 10 U/L (3-41) Alkaline Phosphatase 113 U/L (40-129) Total Creatine Kinase 77 U/L (38-174) C-Reactive Protein, Quantitative 16.5 mg/dL (< 0.5) H Pro-B-Type Natriuretic Peptide 59315 pg/mL (0-125) H Total Protein 8.2 g/dL (6.6-8.7) Albumin 3.6 g/dL (3.5-5.2) Globulin 4.6 g/dL Albumin/Globulin Ratio 0.7 (1.0-2.7) L Triglycerides Level 95 mg/dL (< 150) Cholesterol Level 101 mg/dL (< 200) LDL Cholesterol 29 mg/dL (60-99) L HDL Cholesterol 53 mg/dL (> 60) Cholesterol/HDL Ratio 1.9 (3.3-4.4) L Vitamin B12 Level 719 pg/mL (211-946) Thyroid Stimulating Hormone (TSH) 3.620 uIU/mL (0.300-4.500) Random Vancomycin Level 26.2 ug/mL Height (Feet): 5 Height (Inches): 6.00 Weight (Pounds): 170 Medications Current Medications Medications (Trade) Dose Ordered Sig/Hilary Route PRN Reason Start Time Stop Time Status Last Admin Dose Admin Acetaminophen (Tylenol) 650 mg Q4H PRN ORAL fever 09/11/16 15:30 10/11/16 15:29 Acetaminophen (Tylenol) 650 mg Q4H PRN ORAL Mild Pain (Pain Scale 1-3) 09/12/16 14:15 10/12/16 14:14 Acetaminophen/ Hydrocodone Bitart (Culver 7.5/325) 1 ea Q4H PRN ORAL For Pain moderate 4-6 09/12/16 14:15 09/19/16 14:14 Albuterol/ Ipratropium (DuoNeb 0.5-3(2.5)mg/3ml) 3 ml EVERY 4 HOURS PRN HHN Shortness of Breath 09/11/16 15:30 09/16/16 15:29 Aspirin (Ecotrin) 81 mg DAILY ORAL 09/12/16 09:00 10/12/16 08:59 09/13/16 09:31 Atorvastatin Calcium (Lipitor) 80 mg QHS ORAL 09/12/16 21:00 10/12/16 20:59 09/12/16 20:24 Cefepime HCl/ Dextrose (Maxipime/D5W) 55 ml @ 110 mls/hr Q24H IV 09/11/16 23:00 09/18/16 22:59 09/12/16 22:22 Cinacalcet (Sensipar) 30 mg DAILY ORAL 09/12/16 09:00 10/12/16 08:59 09/13/16 09:31 Clonidine HCl (Catapres) 0.1 mg Q4H PRN GT For High Blood Pressure> 160 09/12/16 15:00 10/12/16 14:59 Diphenhydramine HCl (Benadryl) 50 mg Q6HR PRN IVP Itching 09/11/16 15:30 10/11/16 15:29 09/13/16 10:47 Docusate Sodium (Colace) 100 mg TID ORAL 09/12/16 18:00 10/12/16 17:59 09/13/16 09:31 Heparin Sodium (Porcine) (Heparin 5000 units/ml) 5,000 units EVERY 12 HOURS SUBQ 09/11/16 22:00 10/11/16 21:59 09/13/16 09:33 Hydromorphone HCl (Dilaudid) 2 mg Q4H PRN IV severe pain 7-10 09/11/16 15:30 09/18/16 15:29 09/13/16 10:47 Isosorbide Mononitrate (Imdur) 30 mg DAILY ORAL 09/13/16 09:00 10/13/16 08:59 09/13/16 09:29 Labetalol HCl (Normodyne) 200 mg EVERY 12 HOURS GT 09/12/16 21:00 10/12/16 20:59 09/13/16 09:31 Losartan Potassium (Cozaar) 50 mg DAILY ORAL 09/12/16 09:00 10/12/16 08:59 09/13/16 09:30 Methadone HCl 10 mg 10 mg BID ORAL 09/11/16 21:00 09/18/16 20:59 09/13/16 09:30 Nifedipine (Procardia XL) 30 mg DAILY ORAL 09/13/16 09:00 10/13/16 08:59 09/13/16 09:32 Nitroglycerin (Ntg) 0.4 mg Q 5 MINS PRN SL Prn Chest Pain 09/11/16 15:30 10/11/16 15:29 Ondansetron HCl (Zofran) 4 mg Q6H PRN IVP Nausea & Vomiting 09/11/16 15:30 10/11/16 15:29 Pantoprazole (Protonix) 40 mg BID ORAL 09/12/16 18:00 10/12/16 17:59 09/13/16 09:31 Polyethylene Glycol (Miralax) 17 gm DAILYPRN PRN ORAL Constipation 09/11/16 15:30 10/11/16 15:29 Sertraline HCl (Zoloft) 50 mg DAILY ORAL 09/13/16 09:00 10/13/16 08:59 09/13/16 09:35 Sevelamer Carbonate (Renvela) 3,200 mg THREE TIMES A DAY ORAL 09/12/16 18:00 10/12/16 17:59 09/13/16 09:30 Temazepam (Restoril) 15 mg HSPRN PRN ORAL Insomnia 09/11/16 15:30 09/18/16 15:29 09/12/16 23:18 Vancomycin HCl 1 ea 1 ea DAILY PRN MISC Per rx protocol 09/12/16 21:30 10/12/16 21:29 Vancomycin HCl/ Dextrose (Vancomycin/D5W) 275 ml @ 183.708 mls/hr ONCE ONCE IVPB 09/15/16 09:00 09/15/16 10:29 Assessment/Plan Problem List: (1) Venous ulcer of leg Assessment & Plan: 56M chronic venous stasis ulcer of right lower extremity. minimal wound care by patient. care provided while in facility. wound neglected by patient. multiple areas of necrotic and fibrinous tissue. mild cellulitis. no abscess. recommend debridement at bedside wound care with dressings TID will follow with you thank you for this consultation ICD Codes: I83.009 - Varicose veins of unspecified lower extremity with ulcer of unspecified site SNOMED: [id number] Qualifiers: Qualified Codes: I83.019 - Varicose veins of right lower extremity with ulcer of unspecified site; I83.029 - Varicose veins of left lower extremity with ulcer of unspecified site Status: stable Brian Suarez Sep 13, 2016 14:13
--- NOTE | 2016-09-13 14:15 | Operative Note - PDOC ---
Operative Note Operative Note Date of Operation/Procedure: Sep 13, 2016 Pre-op Diagnosis: chronic venous stasis ulcer of right leg with necrotic and fibrinous tissue Procedure: debridement of right lower extremity necrotic tissue Post-op Diagnosis: same as pre-op Operative Findings: consistent w/pre-op dx studies Surgeon: dena Anesthesiologist: n/a Specimen: none Complications: none Condition: stable Estimated Blood Loss: minimal Implant(s) used?: No Indications for Procedure please refer to consult note Description of Procedure patient made comfortable at bedside. wound cleaned. necrotic tissue debridement with sharp and blunt dissection using mets. ulcer unroofed. fibrinous tissue removed. wound cleaned and dressings applied. patient tolerated well. Brian Suarez Sep 13, 2016 14:15
--- NOTE | 2016-09-13 15:44 | Pulmonology Progress Note ---
Assessment/Plan Problems: (1) Venous ulcer of leg (2) ESRD (end stage renal disease) on dialysis (3) Cellulitis Assessment/Plan wound care iv antibiotics surgical evaluation D/w surgeon HD by stock counter check electrolytes. Subjective ROS Limited/Unobtainable: No Constitutional: Reports: no symptoms HEENT: Repors: no symptoms Respiratory: Reports: no symptoms Cardiovascular: Reports: no symptoms Allergies: Coded Allergies: No Known Allergies (Unverified , 08/31/15) Objective Last 24 Hour Vital Signs Date Time Temp Pulse Resp B/P Pulse Ox O2 Delivery O2 Flow Rate FiO2 09/13/16 15:18 97.0 09/13/16 12:40 Room Air 09/13/16 12:00 97.0 100 21 123/81 98 Room Air 09/13/16 09:32 98 126/86 09/13/16 09:31 98 126/86 09/13/16 09:30 126/86 09/13/16 09:29 126/86 09/13/16 08:00 98.0 95 21 126/86 98 Room Air 09/13/16 04:43 98.2 63 21 114/91 91 Room Air 09/13/16 00:04 97.9 102 18 122/93 93 Room Air 09/12/16 20:25 100 105/66 09/12/16 19:53 98.2 100 17 105/66 96 Room Air 09/12/16 15:54 97.2 95 18 110/70 100 Room Air Intake and Output 09/12/16 09/13/16 19:00 07:00 Intake Total 480 ml 55 ml Balance 480 ml 55 ml Intake Oral 480 ml IV Total 55 ml # Voids 3 General Appearance: WD/WN HEENT: normocephalic Respiratory/Chest: chest wall non-tender, lungs clear Cardiovascular: normal peripheral pulses, normal rate Abdomen: normal bowel sounds, no organomegaly Genitourinary: normal external genitalia Microbiology Date/Time Source Procedure Growth Status 09/11/16 15:45 Blood Blood Culture - Preliminary NO GROWTH AFTER 24 HOURS Resulted 09/11/16 15:30 Blood Blood Culture - Preliminary NO GROWTH AFTER 24 HOURS Resulted 09/12/16 03:00 Leg Right Gram Stain - Final Resulted 09/12/16 03:00 Leg Right Wound Culture - Preliminary Resulted Laboratory Tests 09/13/16 06:00: White Blood Count 11.8H, Red Blood Count 3.14L, Hemoglobin 9.1L, Hematocrit 28.9L, Mean Corpuscular Volume 92, Mean Corpuscular Hemoglobin 29.1, Mean Corpuscular Hemoglobin Concent 31.5L, Red Cell Distribution Width 17.2H, Platelet Count 334, Mean Platelet Volume 4.8L, Neutrophils (%) (Auto) 73.8, Lymphocytes (%) (Auto) 14.5L, Monocytes (%) (Auto) 9.7, Eosinophils (%) (Auto) 1.2, Basophils (%) (Auto) 0.8, Sodium Level 133L, Potassium Level 5.4H, Chloride Level 88L, Carbon Dioxide Level 24, Anion Gap 21H, Blood Urea Nitrogen 67H, Creatinine 9.1H, Estimat Glomerular Filtration Rate 7.3, Glucose Level 98, Hemoglobin A1c 5.2, Uric Acid 6.7, Calcium Level 9.7, Phosphorus Level 4.8, Magnesium Level 2.7H, Total Bilirubin < 0.2, Gamma Glutamyl Transpeptidase 27, Aspartate Amino Transf (AST/SGOT) 19, Alanine Aminotransferase (ALT/SGPT) 10, Alkaline Phosphatase 113, Total Creatine Kinase 77, C-Reactive Protein, Quantitative 16.5H, Pro-B-Type Natriuretic Peptide 51305E, Total Protein 8.2, Albumin 3.6, Globulin 4.6, Albumin/Globulin Ratio 0.7L, Triglycerides Level 95, Cholesterol Level 101, LDL Cholesterol 29L, HDL Cholesterol 53, Cholesterol/HDL Ratio 1.9L, Vitamin B12 Level 719, Thyroid Stimulating Hormone (TSH) 3.620, Random Vancomycin Level 26.2 Current Medications Medications (Trade) Dose Ordered Sig/Hilary Route PRN Reason Start Time Stop Time Status Last Admin Dose Admin Acetaminophen (Tylenol) 650 mg Q4H PRN ORAL fever 09/11/16 15:30 10/11/16 15:29 Acetaminophen (Tylenol) 650 mg Q4H PRN ORAL Mild Pain (Pain Scale 1-3) 09/12/16 14:15 10/12/16 14:14 Acetaminophen/ Hydrocodone Bitart (Julian 7.5/325) 1 ea Q4H PRN ORAL For Pain moderate 4-6 09/12/16 14:15 09/19/16 14:14 Albuterol/ Ipratropium (DuoNeb 0.5-3(2.5)mg/3ml) 3 ml EVERY 4 HOURS PRN HHN Shortness of Breath 09/11/16 15:30 09/16/16 15:29 Aspirin (Ecotrin) 81 mg DAILY ORAL 09/12/16 09:00 10/12/16 08:59 09/13/16 09:31 Atorvastatin Calcium (Lipitor) 80 mg QHS ORAL 09/12/16 21:00 10/12/16 20:59 09/12/16 20:24 Cefepime HCl/ Dextrose (Maxipime/D5W) 55 ml @ 110 mls/hr Q24H IV 09/11/16 23:00 09/18/16 22:59 09/12/16 22:22 Cinacalcet (Sensipar) 30 mg DAILY ORAL 09/12/16 09:00 10/12/16 08:59 09/13/16 09:31 Clonidine HCl (Catapres) 0.1 mg Q4H PRN GT For High Blood Pressure> 160 09/12/16 15:00 10/12/16 14:59 Diphenhydramine HCl (Benadryl) 50 mg Q6HR PRN IVP Itching 09/11/16 15:30 10/11/16 15:29 09/13/16 10:47 Docusate Sodium (Colace) 100 mg TID ORAL 09/12/16 18:00 10/12/16 17:59 09/13/16 09:31 Heparin Sodium (Porcine) (Heparin 5000 units/ml) 5,000 units EVERY 12 HOURS SUBQ 09/11/16 22:00 10/11/16 21:59 09/13/16 09:33 Hydromorphone HCl (Dilaudid) 2 mg Q4H PRN IV severe pain 7-10 09/11/16 15:30 09/18/16 15:29 09/13/16 14:48 Isosorbide Mononitrate (Imdur) 30 mg DAILY ORAL 09/13/16 09:00 10/13/16 08:59 09/13/16 09:29 Labetalol HCl (Normodyne) 200 mg EVERY 12 HOURS GT 09/12/16 21:00 10/12/16 20:59 09/13/16 09:31 Losartan Potassium (Cozaar) 50 mg DAILY ORAL 09/12/16 09:00 10/12/16 08:59 09/13/16 09:30 Methadone HCl 10 mg 10 mg BID ORAL 09/11/16 21:00 09/18/16 20:59 09/13/16 09:30 Nifedipine (Procardia XL) 30 mg DAILY ORAL 09/13/16 09:00 10/13/16 08:59 09/13/16 09:32 Nitroglycerin (Ntg) 0.4 mg Q 5 MINS PRN SL Prn Chest Pain 09/11/16 15:30 10/11/16 15:29 Ondansetron HCl (Zofran) 4 mg Q6H PRN IVP Nausea & Vomiting 09/11/16 15:30 10/11/16 15:29 Pantoprazole (Protonix) 40 mg BID ORAL 09/12/16 18:00 10/12/16 17:59 09/13/16 09:31 Polyethylene Glycol (Miralax) 17 gm DAILYPRN PRN ORAL Constipation 09/11/16 15:30 10/11/16 15:29 Sertraline HCl (Zoloft) 50 mg DAILY ORAL 09/13/16 09:00 10/13/16 08:59 09/13/16 09:35 Sevelamer Carbonate (Renvela) 3,200 mg THREE TIMES A DAY ORAL 09/12/16 18:00 10/12/16 17:59 09/13/16 09:30 Temazepam (Restoril) 15 mg HSPRN PRN ORAL Insomnia 09/11/16 15:30 09/18/16 15:29 09/12/16 23:18 Vancomycin HCl 1 ea 1 ea DAILY PRN MISC Per rx protocol 09/12/16 21:30 10/12/16 21:29 Vancomycin HCl/ Dextrose (Vancomycin/D5W) 275 ml @ 183.708 mls/hr ONCE ONCE IVPB 09/15/16 09:00 09/15/16 10:29 ANGELICA PARSON Sep 13, 2016 15:44
[2016-09-13 16:30] VITALS: BP 97/63
[2016-09-13 20:00] VITALS: BP 111/75
[2016-09-13] MEDS: Atorvastatin 80mg tab ORAL SCH (21:00)
--- NOTE | 2016-09-13 21:30 | Consultation ---
DATE OF CONSULTATION: 09/12/2016 INFECTIOUS DISEASES CONSULTATION CONSULTING PHYSICIAN: Petar Short M.D. REFERRING PHYSICIAN: Jeremi Henderson M.D. REASON FOR CONSULTATION: Evaluation of the patient for right lower extremity wound infection and antibiotic management. HISTORY OF PRESENT ILLNESS: The patient is a 56-year-old male with multiple medical problems who has been admitted to this medical center for worsening right lower extremity wound with some malodorous discharge. The patient has been admitted here with wound infection. Infectious Disease consultation requested for further evaluation of the patient and antibiotic management. PAST MEDICAL HISTORY: Significant for: 1. End-stage renal disease on hemodialysis. 2. History of isolated alkaline phosphatase elevation. 3. History of chronic pain syndrome on methadone 4. History of dementia. 5. History of syncope. 6. History of heart failure. 7. History of hypertension. 8. GERD. 9. Anemia. 10. Depression. ALLERGIES: No known drug allergies. MEDICATIONS: Vancomycin and cefepime. PHYSICAL EXAMINATION: VITAL SIGNS: Temperature 98 degrees, pulse 86, and respiratory rate 18, blood pressure 126/86. HEENT: Mild pale conjunctivae. No icterus. NECK: No lymphadenopathy. CHEST: Clear. HEART: S1 and S2. ABDOMEN: Soft, obese. EXTREMITIES: The patient has malodorous discharge from the right leg wound. NEUROLOGIC: Awake and alert. LABORATORY DATA: White blood cells 11.8, hemoglobin 9.3, and platelets 324,000. BUN 67 and creatinine 9.1. ALT, AST, alkaline phosphatase unremarkable. Wound culture is pending. Blood culture is pending. ASSESSMENT: 1. The patient is a 56-year-old male with multiple medical problems as listed above who has one right lower extremity wound with malodorous discharge underlying arterial versus venous sufficiency. 2. Rule out bacteremia. PLAN: 1. We will continue the patient on IV vancomycin and cefepime. 2. Monitor CBC. 3. Monitor BMP. 4. Monitor cultures (wound and blood). 5. Recommend evaluation by vascular surgeon for possible underlying venous versus arterial insufficiency. 6. Based on the patient's clinical course and laboratories, we will do further recommendations. Thank you, Dr. Henderson, for allowing me to participate in the care of this patient. I will follow the patient with you during this hospitalization. Petar Short M.D. DR: KANA JOB#: [id number] CC:
[2016-09-13] MEDS: Cefepime HCl 500 MG in D5W 55 ML IV SCH (22:03)
[2016-09-14 00:07] VITALS: BP 97/69
--- NOTE | 2016-09-14 00:15 | Consultation ---
DATE OF CONSULTATION: 09/12/2016 CONSULTING PHYSICIAN: Danielle Yu M.D. HISTORY OF PRESENT ILLNESS: This is a 56-year-old male with history of multiple medical problems including ESRD, cellulitis, and venous ulcer of leg, who has been admitted to the hospital for further evaluation and treatment. Psychiatry was consulted. Danielle Yu M.D. DR: MONTY JOB#: [id number] CC:
--- NOTE | 2016-09-14 01:00 | Consultation ---
DATE OF CONSULTATION: SUBJECTIVE: The patient with multiple medical problems ulcer in the upper extremities and abdominal pain has been admitted to the hospital for further evaluation and treatment. The patient is presenting with depressed mood, anhedonia, worthlessness, hopelessness, and noncompliant with care. PAST PSYCHIATRY HISTORY: Denies any history of anxiety or depression. PAST MEDICAL HISTORY: As above. SUBSTANCE ABUSE HISTORY: He denied any history of illicit drug use or alcohol. MENTAL STATUS EXAMINATION: Alert and oriented x3. Mood is neutral. Affect is constricted. Congruent mood. Thought process is concrete. Thought content, no suicidal or homicidal ideation. ASSESSMENT: [place] I Mood disorder, not otherwise specified. [place] II Deferred. [place] III As above. [place] IV Low. [place] V Global assessment of functioning is 50. PLAN: We will start the patient on the citalopram 10 mg in the morning. Danielle Yu M.D. DR: JESS JOB#: [id number] CC:
[2016-09-14 04:05] VITALS: BP 123/75
[2016-09-14 07:41] LABS: BASOPHILS % (AUTO) 2.2 % (0.0-2.0); EOSINOPHILS % (AUTO) 1.1 % (0.0-3.0); LYMPHOCYTES % (AUTO) 8.7 % (20.0-45.0); MEAN CORPUSCULAR HEMOGLOBIN 28.3 PG (27.0-31.0); MEAN CORPUSCULAR HGB CONC 30.7 G/DL (32.0-36.0); MEAN CORPUSCULAR VOLUME 92 FL (80-99); MEAN PLATELET VOLUME 5.5 FL (6.5-10.1); MONOCYTES % (AUTO) 12.4 % (1.0-10.0); NEUTROPHILS % (AUTO) 75.7 % (45.0-75.0); PLATELET COUNT 311 K/UL (150-450); RED BLOOD COUNT 3.25 M/UL (4.70-6.10); WHITE BLOOD COUNT 10.7 K/UL (4.8-10.8)
[2016-09-14 08:00] VITALS: BP 131/72
[2016-09-14 08:02] LABS: ALBUMIN/GLOBULIN RATIO 0.7 (1.0-2.7); CALCIUM 9.2 mg/dL (8.6-10.2); CREATININE 7.2 mg/dL (0.7-1.2); GLOMERULAR FILTRATION RATE 9.6 mL/min (>60); PHOSPHORUS 3.7 mg/dL (2.5-4.8); POTASSIUM 4.6 mEQ/L (3.4-4.9)
[2016-09-14] MEDS: DiphenhydrAMINE 50mg/ml Inj IVP PRN ×2 (08:21→17:19)
--- NOTE | 2016-09-14 09:27 | General Progress Note ---
Assessment/Plan Status: stable Assessment/Plan ESRD (end stage renal disease) on dialysis M W F Primary Impression: Venous ulcer of leg Cellulitis Cellulitis of right lower limb HTN Chronic Narcotic user Plan: HD 09/13 next 09/16 Adjust BP meds Diet renal Per consultants and wound care- Subjective ROS Limited/Unobtainable: No Constitutional: Reports: malaise, weakness Allergies: Coded Allergies: No Known Allergies (Unverified , 08/31/15) Objective Last 24 Hour Vital Signs Date Time Temp Pulse Resp B/P Pulse Ox O2 Delivery O2 Flow Rate FiO2 09/14/16 04:21 98.7 09/14/16 04:05 98.7 86 21 123/75 94 Room Air 09/14/16 00:07 98.7 91 20 97/69 95 Room Air 09/13/16 21:00 100 111/75 09/13/16 20:00 98.0 100 18 111/75 96 Room Air 09/13/16 16:30 98.0 109 20 97/63 100 Room Air 09/13/16 16:15 Room Air 09/13/16 12:40 Room Air 09/13/16 12:00 97.0 100 21 123/81 98 Room Air 09/13/16 09:32 98 126/86 09/13/16 09:31 98 126/86 09/13/16 09:30 126/86 09/13/16 09:29 126/86 Intake and Output 09/13/16 09/14/16 19:00 07:00 Intake Total 240 ml Output Total 1920 ml Balance -1680 ml Intake Oral 240 ml Hemodialysis UF 1920 ml # Voids 1 Laboratory Tests 09/14/16 05:25: White Blood Count 10.7, Red Blood Count 3.25L, Hemoglobin 9.2L, Hematocrit 30.0L , Mean Corpuscular Volume 92, Mean Corpuscular Hemoglobin 28.3, Mean Corpuscular Hemoglobin Concent 30.7L, Red Cell Distribution Width 17.0H, Platelet Count 311, Mean Platelet Volume 5.5L, Neutrophils (%) (Auto) 75.7H, Lymphocytes (%) (Auto) 8.7L, Monocytes (%) (Auto) 12.4H, Eosinophils (%) (Auto) 1.1, Basophils (%) (Auto) 2.2H, Sodium Level 136, Potassium Level 4.6, Chloride Level 89L, Carbon Dioxide Level 30, Anion Gap 17H, Blood Urea Nitrogen 44H, Creatinine 7.2H, Estimat Glomerular Filtration Rate 9.6, Glucose Level 109H, Calcium Level 9.2, Phosphorus Level 3.7, Total Bilirubin 0.2, Aspartate Amino Transf (AST/SGOT) 18, Alanine Aminotransferase (ALT/SGPT) 9, Alkaline Phosphatase 105, Pro-B-Type Natriuretic Peptide 21965G, Total Protein 8.0, Albumin 3.5, Globulin 4.5, Albumin/Globulin Ratio 0.7L Height (Feet): 5 Height (Inches): 6.00 Weight (Pounds): 170 General Appearance: no apparent distress Objective other PE not changed ELSA RICHMOND Sep 14, 2016 09:27
[2016-09-14] MEDS: Aspirin EC 81mg tab ORAL SCH (09:43)
[2016-09-14] MEDS: Sertraline 100mg tab ORAL SCH (09:43)
[2016-09-14] MEDS: Sensipar 30mg Tab ORAL SCH (09:48)
[2016-09-14] MEDS: Losartan 50mg tab ORAL SCH (09:48)
[2016-09-14] MEDS: Imdur 30mg tab ORAL SCH (09:51)
[2016-09-14] MEDS: Docusate 100mg cap ORAL SCH ×3 (09:52→18:00)
[2016-09-14] MEDS: Labetalol 200mg tab GT SCH ×2 (09:52→22:03)
[2016-09-14] MEDS: Heparin 5000 units/ml inj SUBQ SCH ×2 (09:55→22:10)
--- NOTE | 2016-09-14 10:51 | General Progress Note ---
Progress Note Progress Note pt with chroinc RLE leg ulcers 2o to lymphedema. wounds were debrided yesterday by Dr Leigh. VSS RLE wounds are clean, open. nopus, no grossly devitalized tissue. Would consider unna boot treatment as outpatient. this would rdquire a commitment by the patient and the health care provider to weekly boot change, and may takes weeks to months to totally epithelialize these wounds. FRENCH ANDUJAR Sep 14, 2016 10:51
[2016-09-14 12:00] VITALS: BP 122/78
[2016-09-14 16:00] VITALS: BP 114/70
--- NOTE | 2016-09-14 18:40 | Pulmonology Progress Note ---
Assessment/Plan Problems: (1) Venous ulcer of leg (2) ESRD (end stage renal disease) on dialysis (3) Cellulitis Assessment/Plan wound care iv antibiotics surgical evaluation D/w surgeon HD by chairman emeritus check electrolytes. Subjective ROS Limited/Unobtainable: No Constitutional: Reports: no symptoms HEENT: Repors: no symptoms Respiratory: Reports: no symptoms Allergies: Coded Allergies: No Known Allergies (Unverified , 08/31/15) Objective Last 24 Hour Vital Signs Date Time Temp Pulse Resp B/P Pulse Ox O2 Delivery O2 Flow Rate FiO2 09/14/16 17:49 98.1 09/14/16 16:00 98.1 84 18 114/70 95 09/14/16 12:00 98.0 91 18 122/78 95 Room Air 09/14/16 09:52 72 159/98 09/14/16 09:51 159/98 09/14/16 09:48 159/98 09/14/16 08:00 98.2 98 18 131/72 97 Room Air 09/14/16 04:05 98.7 86 21 123/75 94 Room Air 09/14/16 00:07 98.7 91 20 97/69 95 Room Air 09/13/16 21:00 100 111/75 09/13/16 20:00 98.0 100 18 111/75 96 Room Air Intake and Output 09/13/16 09/14/16 19:00 07:00 Intake Total 240 ml Output Total 1920 ml Balance -1680 ml Intake Oral 240 ml Hemodialysis UF 1920 ml # Voids 1 General Appearance: WD/WN HEENT: normocephalic, atraumatic Respiratory/Chest: chest wall non-tender, lungs clear Cardiovascular: normal peripheral pulses, normal rate Abdomen: normal bowel sounds, soft, non tender Genitourinary: normal external genitalia Microbiology Date/Time Source Procedure Growth Status 09/12/16 03:00 Leg Right Gram Stain - Final Resulted 09/12/16 03:00 Wound Culture - Preliminary Gram Negative Aston Resulted Laboratory Tests 09/14/16 05:25: White Blood Count 10.7, Red Blood Count 3.25L, Hemoglobin 9.2L, Hematocrit 30.0L , Mean Corpuscular Volume 92, Mean Corpuscular Hemoglobin 28.3, Mean Corpuscular Hemoglobin Concent 30.7L, Red Cell Distribution Width 17.0H, Platelet Count 311, Mean Platelet Volume 5.5L, Neutrophils (%) (Auto) 75.7H, Lymphocytes (%) (Auto) 8.7L, Monocytes (%) (Auto) 12.4H, Eosinophils (%) (Auto) 1.1, Basophils (%) (Auto) 2.2H, Sodium Level 136, Potassium Level 4.6, Chloride Level 89L, Carbon Dioxide Level 30, Anion Gap 17H, Blood Urea Nitrogen 44H, Creatinine 7.2H, Estimat Glomerular Filtration Rate 9.6, Glucose Level 109H, Calcium Level 9.2, Phosphorus Level 3.7, Total Bilirubin 0.2, Aspartate Amino Transf (AST/SGOT) 18, Alanine Aminotransferase (ALT/SGPT) 9, Alkaline Phosphatase 105, Pro-B-Type Natriuretic Peptide 66834H, Total Protein 8.0, Albumin 3.5, Globulin 4.5, Albumin/Globulin Ratio 0.7L Current Medications Medications (Trade) Dose Ordered Sig/Hilary Route PRN Reason Start Time Stop Time Status Last Admin Dose Admin Acetaminophen (Tylenol) 650 mg Q4H PRN ORAL fever 09/11/16 15:30 10/11/16 15:29 Acetaminophen (Tylenol) 650 mg Q4H PRN ORAL Mild Pain (Pain Scale 1-3) 09/12/16 14:15 10/12/16 14:14 Acetaminophen/ Hydrocodone Bitart ([place] 7.5/325) 1 ea Q4H PRN ORAL For Pain moderate 4-6 09/12/16 14:15 09/19/16 14:14 09/14/16 11:11 Albuterol/ Ipratropium (DuoNeb 0.5-3(2.5)mg/3ml) 3 ml EVERY 4 HOURS PRN HHN Shortness of Breath 09/11/16 15:30 09/16/16 15:29 Aspirin (Ecotrin) 81 mg DAILY ORAL 09/12/16 09:00 10/12/16 08:59 09/14/16 09:43 Atorvastatin Calcium (Lipitor) 80 mg QHS ORAL 09/12/16 21:00 10/12/16 20:59 09/13/16 21:00 Cefepime HCl/ Dextrose (Maxipime/D5W) 55 ml @ 110 mls/hr Q24H IV 09/11/16 23:00 09/18/16 22:59 09/13/16 22:03 Cinacalcet (Sensipar) 30 mg DAILY ORAL 09/12/16 09:00 10/12/16 08:59 09/14/16 09:48 Clonidine HCl (Catapres) 0.1 mg Q4H PRN GT For High Blood Pressure> 160 09/12/16 15:00 10/12/16 14:59 Diphenhydramine HCl (Benadryl) 50 mg Q6HR PRN IVP Itching 09/11/16 15:30 10/11/16 15:29 09/14/16 17:19 Docusate Sodium (Colace) 100 mg TID ORAL 09/12/16 18:00 10/12/16 17:59 09/14/16 09:52 Heparin Sodium (Porcine) (Heparin 5000 units/ml) 5,000 units EVERY 12 HOURS SUBQ 09/11/16 22:00 10/11/16 21:59 09/14/16 09:55 Hydromorphone HCl (Dilaudid) 2 mg Q4H PRN IV severe pain 7-10 09/11/16 15:30 09/18/16 15:29 09/14/16 17:19 Isosorbide Mononitrate (Imdur) 30 mg DAILY ORAL 09/13/16 09:00 10/13/16 08:59 09/14/16 09:51 Labetalol HCl (Normodyne) 200 mg EVERY 12 HOURS GT 09/12/16 21:00 10/12/16 20:59 09/14/16 09:52 Losartan Potassium (Cozaar) 50 mg DAILY ORAL 09/12/16 09:00 10/12/16 08:59 09/14/16 09:48 Methadone HCl 10 mg 10 mg BID ORAL 09/11/16 21:00 09/18/16 20:59 09/14/16 18:34 Nitroglycerin (Ntg) 0.4 mg Q 5 MINS PRN SL Prn Chest Pain 09/11/16 15:30 10/11/16 15:29 Ondansetron HCl (Zofran) 4 mg Q6H PRN IVP Nausea & Vomiting 09/11/16 15:30 10/11/16 15:29 Pantoprazole (Protonix) 40 mg BID ORAL 09/12/16 18:00 10/12/16 17:59 09/14/16 18:33 Polyethylene Glycol (Miralax) 17 gm DAILYPRN PRN ORAL Constipation 09/11/16 15:30 10/11/16 15:29 Sertraline HCl (Zoloft) 100 mg DAILY ORAL 09/14/16 09:00 10/14/16 08:59 09/14/16 09:43 Sevelamer Carbonate (Renvela) 3,200 mg THREE TIMES A DAY ORAL 09/12/16 18:00 10/12/16 17:59 09/14/16 18:33 Temazepam (Restoril) 15 mg HSPRN PRN ORAL Insomnia 09/11/16 15:30 09/18/16 15:29 09/12/16 23:18 Vancomycin HCl 1 ea 1 ea DAILY PRN MISC Per rx protocol 09/12/16 21:30 10/12/16 21:29 Vancomycin HCl/ Dextrose (Vancomycin/D5W) 275 ml @ 183.708 mls/hr ONCE ONCE IVPB 09/15/16 09:00 09/15/16 10:29 ANGELICA PARSON Sep 14, 2016 18:40
[2016-09-14 20:00] VITALS: BP 116/81
[2016-09-14] MEDS: Atorvastatin 80mg tab ORAL SCH (22:01)
[2016-09-14] MEDS: Cefepime HCl 500 MG in D5W 55 ML IV SCH (22:01)
[2016-09-15] VITALS: BP 112/68
[2016-09-15 03:57] VITALS: BP 113/71
[2016-09-15] MEDS: DiphenhydrAMINE 50mg/ml Inj IVP PRN ×2 (06:57→22:41)
[2016-09-15 07:47] VITALS: BP 132/92
[2016-09-15] MEDS: Docusate 100mg cap ORAL SCH ×3 (09:00→18:00)
[2016-09-15] MEDS ORDERED: Vancomycin 1gm/D5W 275ml IVPB ONE ×2 (09:00)
[2016-09-15] MEDS: Imdur 30mg tab ORAL SCH (09:13)
[2016-09-15] MEDS: Losartan 50mg tab ORAL SCH (09:14)
[2016-09-15] MEDS: Aspirin EC 81mg tab ORAL SCH (09:14)
[2016-09-15] MEDS: Labetalol 200mg tab GT SCH ×2 (09:14→22:40)
[2016-09-15] MEDS: Sensipar 30mg Tab ORAL SCH (09:15)
[2016-09-15] MEDS: Sertraline 100mg tab ORAL SCH (09:18)
--- NOTE | 2016-09-15 09:20 | General Progress Note ---
Assessment/Plan Assessment/Plan (1) ESRD of Dialysis (2) Non healing ulcer of right lower extremity (3) Intractable pain (4) Multiple joint arthritis (5) Peripheral vascular disease (6) Left shoulder pain The patient will be continued on methadone, [place] and Dilaudid. Xray of left shoulder pending report. The patient was discussed with Dr. Byrne and Dr. Byrne concurred. Subjective Date patient seen: Sep 15, 2016 Time patient seen: 07:00 - am Allergies: Coded Allergies: No Known Allergies (Unverified , 08/31/15) Subjective REVIEW OF SYSTEMS: Denies rash, fever, chills, sweating, dizziness, drowsiness, blurred vision, sore throat, or change in weight. No shortness of breath or chest pain. No nausea, vomiting, diarrhea or blood in the stool or urine. No bowel or bladder incontinence. He is complaining of generalized body pain. SUBJECTIVE: He continues to c/o pain in his right leg and left shoulder. Xray was performed however repot is pending. His pain is tolerated on the Methadone and dilaudid. Objective Last 24 Hour Vital Signs Date Time Temp Pulse Resp B/P Pulse Ox O2 Delivery O2 Flow Rate FiO2 09/15/16 07:47 97.5 83 19 132/92 87 Room Air 09/15/16 03:57 98.1 75 20 113/71 100 Room Air 09/15/16 00:00 98.0 79 18 112/68 94 Room Air 09/14/16 22:03 89 116/81 09/14/16 20:00 97.9 89 20 116/81 98 Room Air 09/14/16 17:49 98.1 09/14/16 16:00 98.1 84 18 114/70 95 09/14/16 12:00 98.0 91 18 122/78 95 Room Air 09/14/16 09:52 72 159/98 09/14/16 09:51 159/98 09/14/16 09:48 159/98 Intake and Output 09/14/16 09/15/16 19:00 07:00 Intake Total 500 ml 480 ml Balance 500 ml 480 ml Intake Oral 500 ml 480 ml # Bowel Movements 1 Height (Feet): 5 Height (Inches): 6.00 Weight (Pounds): 170 Objective GENERAL: Alert, awake, and oriented. HEENT: PERRLA. NECK: Range of motion is decreased due to the patient's clinical condition with tenderness to paracervical muscles. No adenopathy LUNGS: Decreased breath sounds bilaterally. HEART: Regular. ABDOMEN: Obese. BACK: Range of motion is decreased in flexion and extension with tenderness to paraspinal muscles. No tenderness to trapezius or rhomboid muscles. EXTREMITIES: No cyanosis. There is severe edema noted in bilateral lower extremities. Necrotic wound noted on the right jackson with bandages applied and tenderness to palpation. NERUO: No changes. JUSTUS MALDONADO Sep 15, 2016 09:20
--- NOTE | 2016-09-15 09:23 | Infectious Diseases Prog Note ---
Assessment/Plan Assessment/Plan ASSESSMENT: 56 y/o male with: // Chronic RLE wound / cellulitis - WCx GNR - h/o Wnd cx : colonization ( PSA , CoNS and Diphtheroids ) - doppler(-) DVT // Leukocytosis, mild - resolved, afebrile // ESRD / HD with RUE AVF // Isolated ALP elevation - GGT WNL // Chronic pain syndrome, on methadone // h/o MRSA, VRE colonization // NKDA // Full Code PLAN: - continue IV Vanco and Cefepime d # 2 / 10-14 ( 08/15 SP IV vancomycin, cefepime d # 1 ) - f/u cultures - monitor CBC, temperatures - monitor BMP - wound care Subjective Allergies: Coded Allergies: No Known Allergies (Unverified , 08/31/15) Subjective remains afebrile, leukocytosis resolved WCx GNR Objective Vital Signs Last 24 Hour Vital Signs Date Time Temp Pulse Resp B/P Pulse Ox O2 Delivery O2 Flow Rate FiO2 09/15/16 07:47 97.5 83 19 132/92 87 Room Air 09/15/16 03:57 98.1 75 20 113/71 100 Room Air 09/15/16 00:00 98.0 79 18 112/68 94 Room Air 09/14/16 22:03 89 116/81 09/14/16 20:00 97.9 89 20 116/81 98 Room Air 09/14/16 17:49 98.1 09/14/16 16:00 98.1 84 18 114/70 95 09/14/16 12:00 98.0 91 18 122/78 95 Room Air 09/14/16 09:52 72 159/98 09/14/16 09:51 159/98 09/14/16 09:48 159/98 Height (Feet): 5 Height (Inches): 6.00 Weight (Pounds): 170 General Appearance: no acute distress Respiratory/Chest: no respiratory distress Cardiovascular: normal rate, regular rhythm Abdomen: normal bowel sounds, soft, non tender, non distended Extremities: other - wound bandaged Current Medications Medications (Trade) Dose Ordered Sig/Hilary Route PRN Reason Start Time Stop Time Status Last Admin Dose Admin Acetaminophen (Tylenol) 650 mg Q4H PRN ORAL fever 09/11/16 15:30 10/11/16 15:29 Acetaminophen (Tylenol) 650 mg Q4H PRN ORAL Mild Pain (Pain Scale 1-3) 09/12/16 14:15 10/12/16 14:14 Acetaminophen/ Hydrocodone Bitart ([place] 7.5/325) 1 ea Q4H PRN ORAL For Pain moderate 4-6 09/12/16 14:15 09/19/16 14:14 09/14/16 11:11 Albuterol/ Ipratropium (DuoNeb 0.5-3(2.5)mg/3ml) 3 ml EVERY 4 HOURS PRN HHN Shortness of Breath 09/11/16 15:30 09/16/16 15:29 Aspirin (Ecotrin) 81 mg DAILY ORAL 09/12/16 09:00 10/12/16 08:59 09/14/16 09:43 Atorvastatin Calcium (Lipitor) 80 mg QHS ORAL 09/12/16 21:00 10/12/16 20:59 09/14/16 22:01 Cefepime HCl/ Dextrose (Maxipime/D5W) 55 ml @ 110 mls/hr Q24H IV 09/11/16 23:00 09/18/16 22:59 09/14/16 22:01 Cinacalcet (Sensipar) 30 mg DAILY ORAL 09/12/16 09:00 10/12/16 08:59 09/14/16 09:48 Clonidine HCl (Catapres) 0.1 mg Q4H PRN GT For High Blood Pressure> 160 09/12/16 15:00 10/12/16 14:59 Diphenhydramine HCl (Benadryl) 50 mg Q6HR PRN IVP Itching 09/11/16 15:30 10/11/16 15:29 09/15/16 06:57 Docusate Sodium (Colace) 100 mg TID ORAL 09/12/16 18:00 10/12/16 17:59 09/14/16 09:52 Heparin Sodium (Porcine) (Heparin 5000 units/ml) 5,000 units EVERY 12 HOURS SUBQ 09/11/16 22:00 10/11/16 21:59 09/14/16 22:10 Hydromorphone HCl (Dilaudid) 2 mg Q4H PRN IV severe pain 7-10 09/11/16 15:30 09/18/16 15:29 09/15/16 06:30 Isosorbide Mononitrate (Imdur) 30 mg DAILY ORAL 09/13/16 09:00 10/13/16 08:59 09/14/16 09:51 Labetalol HCl (Normodyne) 200 mg EVERY 12 HOURS GT 09/12/16 21:00 10/12/16 20:59 09/14/16 22:03 Losartan Potassium (Cozaar) 50 mg DAILY ORAL 09/12/16 09:00 10/12/16 08:59 09/14/16 09:48 Methadone HCl 10 mg 10 mg BID ORAL 09/11/16 21:00 09/18/16 20:59 09/14/16 18:34 Nitroglycerin (Ntg) 0.4 mg Q 5 MINS PRN SL Prn Chest Pain 09/11/16 15:30 10/11/16 15:29 Ondansetron HCl (Zofran) 4 mg Q6H PRN IVP Nausea & Vomiting 09/11/16 15:30 10/11/16 15:29 Pantoprazole (Protonix) 40 mg BID ORAL 09/12/16 18:00 10/12/16 17:59 09/14/16 18:33 Polyethylene Glycol (Miralax) 17 gm DAILYPRN PRN ORAL Constipation 09/11/16 15:30 10/11/16 15:29 Sertraline HCl (Zoloft) 100 mg DAILY ORAL 09/14/16 09:00 10/14/16 08:59 09/14/16 09:43 Sevelamer Carbonate (Renvela) 3,200 mg THREE TIMES A DAY ORAL 09/12/16 18:00 10/12/16 17:59 09/14/16 18:33 Temazepam (Restoril) 15 mg HSPRN PRN ORAL Insomnia 09/11/16 15:30 09/18/16 15:29 09/12/16 23:18 Vancomycin HCl 1 ea 1 ea DAILY PRN MISC Per rx protocol 09/12/16 21:30 10/12/16 21:29 Vancomycin HCl/ Dextrose (Vancomycin/D5W) 275 ml @ 183.708 mls/hr ONCE ONCE IVPB 09/15/16 09:00 09/15/16 10:29 TANYA WALSH Sep 15, 2016 09:23
[2016-09-15] MEDS: Heparin 5000 units/ml inj SUBQ SCH ×2 (09:43→22:48)
--- NOTE | 2016-09-15 09:52 | General Progress Note ---
Progress Note Progress Note sp debridement of right leg, chronic venous stasis ulcers. Pt also co problems with his left shoulder and right hip and wants to be seen by an orthopedic surgeon Underwent changing of dressings today. Wounds ar clean, open, extensive. ASs suggested yesterday. pt should be considered for Unna boot treatment, but again this re quires committnment of both pt and health car provider to weekly boot changes and will take months to heal. FRENCH ANDUJAR Sep 15, 2016 09:52
--- NOTE | 2016-09-15 10:53 | General Progress Note ---
Assessment/Plan Status: unchanged Assessment/Plan ESRD (end stage renal disease) on dialysis M W F Primary Impression: Venous ulcer of leg Cellulitis Cellulitis of right lower limb HTN Chronic Narcotic user Plan: Refused Echo HD 09/13 next 09/16 Adjust BP meds Diet renal Per consultants and wound care- Subjective ROS Limited/Unobtainable: No Allergies: Coded Allergies: No Known Allergies (Unverified , 08/31/15) Objective Last 24 Hour Vital Signs Date Time Temp Pulse Resp B/P Pulse Ox O2 Delivery O2 Flow Rate FiO2 09/15/16 09:14 83 132/92 09/15/16 09:14 132/92 09/15/16 09:13 132/92 09/15/16 07:47 97.5 83 19 132/92 87 Room Air 09/15/16 03:57 98.1 75 20 113/71 100 Room Air 09/15/16 00:00 98.0 79 18 112/68 94 Room Air 09/14/16 22:03 89 116/81 09/14/16 20:00 97.9 89 20 116/81 98 Room Air 09/14/16 17:49 98.1 09/14/16 16:00 98.1 84 18 114/70 95 09/14/16 12:00 98.0 91 18 122/78 95 Room Air Intake and Output 09/14/16 09/15/16 19:00 07:00 Intake Total 500 ml 480 ml Balance 500 ml 480 ml Intake Oral 500 ml 480 ml # Bowel Movements 1 Height (Feet): 5 Height (Inches): 6.00 Weight (Pounds): 170 General Appearance: no apparent distress Objective other PE not changed ELSA RICHMOND Sep 15, 2016 10:53
--- NOTE | 2016-09-15 11:24 | Diagnostic Imaging Report ---
Indications: Left shoulder pain, denies recent trauma Technique: 3 views left shoulder. Findings: Comparison: None No acute fracture, dislocation, joint space widening , lytic destruction, periosteal reaction , surrounding soft tissue swelling/foreign body/gas, or other acute changes are identified. Chronic remodeling deformity with partial absence of the distal end left clavicle, scapular acromion process. Subacromial space normal in width. Glenohumeral space grossly intact. IMPRESSION: Evidence of acute abnormality left shoulder Chronic deformity/partial absence of the left acromioclavicular joint may be posttraumatic, postsurgical, or post inflammatory.
[2016-09-15 12:08] VITALS: BP 134/82
[2016-09-15 16:14] VITALS: BP 124/64
--- NOTE | 2016-09-15 18:06 | Pulmonology Progress Note ---
Assessment/Plan Problems: (1) Venous ulcer of leg (2) ESRD (end stage renal disease) on dialysis (3) Cellulitis Assessment/Plan wound care surgical evaluation D/w surgeon HD by machine tool mechanic check electrolytes. dc planning for tomorrow Subjective ROS Limited/Unobtainable: No Constitutional: Reports: no symptoms HEENT: Repors: no symptoms Respiratory: Reports: no symptoms Allergies: Coded Allergies: No Known Allergies (Unverified , 08/31/15) Objective Last 24 Hour Vital Signs Date Time Temp Pulse Resp B/P Pulse Ox O2 Delivery O2 Flow Rate FiO2 09/15/16 16:14 97.0 85 19 124/64 94 Room Air 09/15/16 12:08 96.8 88 18 134/82 100 Room Air 09/15/16 09:14 83 132/92 09/15/16 09:14 132/92 09/15/16 09:13 132/92 09/15/16 07:47 97.5 83 19 132/92 87 Room Air 09/15/16 03:57 98.1 75 20 113/71 100 Room Air 09/15/16 00:00 98.0 79 18 112/68 94 Room Air 09/14/16 22:03 89 116/81 09/14/16 20:00 97.9 89 20 116/81 98 Room Air Intake and Output 09/14/16 09/15/16 19:00 07:00 Intake Total 500 ml 480 ml Balance 500 ml 480 ml Intake Oral 500 ml 480 ml # Bowel Movements 1 General Appearance: WD/WN HEENT: normocephalic, atraumatic Respiratory/Chest: chest wall non-tender, lungs clear Cardiovascular: normal peripheral pulses, normal rate Abdomen: normal bowel sounds, soft, non tender Extremities: other - clean dressing Current Medications Medications (Trade) Dose Ordered Sig/Hilary Route PRN Reason Start Time Stop Time Status Last Admin Dose Admin Acetaminophen (Tylenol) 650 mg Q4H PRN ORAL fever 09/11/16 15:30 10/11/16 15:29 Acetaminophen (Tylenol) 650 mg Q4H PRN ORAL Mild Pain (Pain Scale 1-3) 09/12/16 14:15 10/12/16 14:14 Acetaminophen/ Hydrocodone Bitart ([place] 7.5/325) 1 ea Q4H PRN ORAL For Pain moderate 4-6 09/12/16 14:15 09/19/16 14:14 09/14/16 11:11 Albuterol/ Ipratropium (DuoNeb 0.5-3(2.5)mg/3ml) 3 ml EVERY 4 HOURS PRN HHN Shortness of Breath 09/11/16 15:30 09/16/16 15:29 Aspirin (Ecotrin) 81 mg DAILY ORAL 09/12/16 09:00 10/12/16 08:59 09/15/16 09:14 Atorvastatin Calcium (Lipitor) 80 mg QHS ORAL 09/12/16 21:00 10/12/16 20:59 09/14/16 22:01 Cefepime HCl/ Dextrose (Maxipime/D5W) 55 ml @ 110 mls/hr Q24H IV 09/11/16 23:00 09/18/16 22:59 09/14/16 22:01 Cinacalcet (Sensipar) 30 mg DAILY ORAL 09/12/16 09:00 10/12/16 08:59 09/15/16 09:15 Clonidine HCl (Catapres) 0.1 mg Q4H PRN GT For High Blood Pressure> 160 09/12/16 15:00 10/12/16 14:59 Diphenhydramine HCl (Benadryl) 50 mg Q6HR PRN IVP Itching 09/11/16 15:30 10/11/16 15:29 09/15/16 06:57 Docusate Sodium (Colace) 100 mg TID ORAL 09/12/16 18:00 10/12/16 17:59 09/14/16 09:52 Heparin Sodium (Porcine) (Heparin 5000 units/ml) 5,000 units EVERY 12 HOURS SUBQ 09/11/16 22:00 10/11/16 21:59 09/15/16 09:43 Hydromorphone HCl (Dilaudid) 2 mg Q4H PRN IV severe pain 7-10 09/11/16 15:30 09/18/16 15:29 09/15/16 14:30 Isosorbide Mononitrate (Imdur) 30 mg DAILY ORAL 09/13/16 09:00 10/13/16 08:59 09/15/16 09:13 Labetalol HCl (Normodyne) 200 mg EVERY 12 HOURS GT 09/12/16 21:00 10/12/16 20:59 09/15/16 09:14 Losartan Potassium (Cozaar) 50 mg DAILY ORAL 09/12/16 09:00 10/12/16 08:59 09/15/16 09:14 Methadone HCl 10 mg 10 mg BID ORAL 09/11/16 21:00 09/18/16 20:59 09/15/16 09:14 Nitroglycerin (Ntg) 0.4 mg Q 5 MINS PRN SL Prn Chest Pain 09/11/16 15:30 10/11/16 15:29 Ondansetron HCl (Zofran) 4 mg Q6H PRN IVP Nausea & Vomiting 09/11/16 15:30 10/11/16 15:29 Pantoprazole (Protonix) 40 mg BID ORAL 09/12/16 18:00 10/12/16 17:59 09/15/16 09:15 Polyethylene Glycol (Miralax) 17 gm DAILYPRN PRN ORAL Constipation 09/11/16 15:30 10/11/16 15:29 Sertraline HCl (Zoloft) 100 mg DAILY ORAL 09/14/16 09:00 10/14/16 08:59 09/15/16 09:18 Sevelamer Carbonate (Renvela) 3,200 mg THREE TIMES A DAY ORAL 09/12/16 18:00 10/12/16 17:59 09/15/16 13:58 Temazepam (Restoril) 15 mg HSPRN PRN ORAL Insomnia 09/11/16 15:30 09/18/16 15:29 09/12/16 23:18 Vancomycin HCl (Vanco rx to dose) 1 ea DAILY PRN MISC Per rx protocol 09/12/16 21:30 10/12/16 21:29 ANGELICA PARSON Sep 15, 2016 18:06
[2016-09-15 20:00] VITALS: BP 136/80
[2016-09-15] MEDS: Cefepime HCl 500 MG in D5W 55 ML IV SCH (22:40)
[2016-09-15] MEDS: Atorvastatin 80mg tab ORAL SCH (22:41)
[2016-09-15] MEDS ORDERED: Tubing IV Secondary IV ONE (22:44)
[2016-09-15] MEDS ORDERED: NS 275ml ONE (22:44)
[2016-09-16] VITALS: BP 123/77
[2016-09-16 04:00] VITALS: BP 127/83
[2016-09-16 08:55] VITALS: BP 121/75
[2016-09-16] MEDS: Aspirin EC 81mg tab ORAL SCH (09:14)
[2016-09-16] MEDS: Sensipar 30mg Tab ORAL SCH (09:14)
[2016-09-16] MEDS: Sertraline 100mg tab ORAL SCH (09:18)
[2016-09-16] MEDS: Heparin 5000 units/ml inj SUBQ SCH (09:29)
[2016-09-16] MEDS: Docusate 100mg cap ORAL SCH ×3 (09:35→18:00)
[2016-09-16] MEDS: Labetalol 200mg tab GT SCH (09:35)
[2016-09-16] MEDS: Imdur 30mg tab ORAL SCH (09:35)
[2016-09-16] MEDS: Losartan 50mg tab ORAL SCH (09:35)
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
--- NOTE | 2016-09-16 11:41 | General Progress Note ---
Assessment/Plan Status: stable Status Narrative dialysed today Assessment/Plan ESRD (end stage renal disease) on dialysis M W F Primary Impression: Venous ulcer of leg Cellulitis Cellulitis of right lower limb HTN Chronic Narcotic user Plan: Refused Echo HD 09/16 done Adjust BP meds Diet renal Per consultants and wound care- Subjective ROS Limited/Unobtainable: No Constitutional: Reports: malaise Allergies: Coded Allergies: No Known Allergies (Unverified , 08/31/15) Objective Last 24 Hour Vital Signs Date Time Temp Pulse Resp B/P Pulse Ox O2 Delivery O2 Flow Rate FiO2 09/16/16 09:35 83 121/75 09/16/16 09:35 121/75 09/16/16 09:35 121/75 09/16/16 08:55 97.3 83 20 121/75 95 Room Air 09/16/16 08:52 Room Air 09/16/16 04:50 Room Air 09/16/16 04:00 96.7 75 20 127/83 96 Room Air 09/16/16 03:14 96.8 09/16/16 00:00 96.8 79 20 123/77 96 Room Air 09/15/16 22:40 63 136/80 09/15/16 20:00 97.2 63 20 136/80 94 Room Air 09/15/16 16:14 97.0 85 19 124/64 94 Room Air 09/15/16 12:08 96.8 88 18 134/82 100 Room Air Intake and Output 09/15/16 09/16/16 19:00 07:00 Intake Total 455 ml Balance 455 ml Intake Oral 400 ml IV Total 55 ml # Voids 1 Height (Feet): 5 Height (Inches): 6.00 Weight (Pounds): 170 General Appearance: no apparent distress Objective other PE not changed ELSA RICHMOND Sep 16, 2016 11:41
[2016-09-16 12:56] VITALS: BP 138/84
[2016-09-16] MEDS ORDERED: CEFEPIME-D1 GM/50 ML IVPB (15:49)
[2016-09-16] MEDS ORDERED: VANCOMYCIN1 GM/2502 IVPB (15:49)
[2016-09-16 16:07] VITALS: BP 131/79
--- NOTE | 2016-09-16 17:38 | General Progress Note ---
Assessment/Plan Assessment/Plan (1) ESRD of Dialysis (2) Non healing ulcer of right lower extremity (3) Intractable pain (4) Multiple joint arthritis (5) Peripheral vascular disease (6) Left shoulder pain The patient will be continued on methadone, [place] and Dilaudid. We recommend orthopedic evaluation for left shoulder. The patient was discussed with Dr. Byrne and Dr. Byrne concurred. Subjective Date patient seen: Sep 16, 2016 Time patient seen: 04:15 - pm Allergies: Coded Allergies: No Known Allergies (Unverified , 08/31/15) Subjective REVIEW OF SYSTEMS: Denies rash, fever, chills, sweating, dizziness, drowsiness, blurred vision, sore throat, or change in weight. No shortness of breath or chest pain. No nausea, vomiting, diarrhea or blood in the stool or urine. No bowel or bladder incontinence. He is complaining of generalized body pain. SUBJECTIVE: His pain is unchanged and is tolerated on the medication. I d/w him the results of the Xray. Objective Last 24 Hour Vital Signs Date Time Temp Pulse Resp B/P Pulse Ox O2 Delivery O2 Flow Rate FiO2 09/16/16 16:07 97.0 95 20 131/79 95 Room Air 09/16/16 12:56 97.3 101 20 138/84 99 Room Air 09/16/16 09:35 83 121/75 09/16/16 09:35 121/75 09/16/16 09:35 121/75 09/16/16 08:55 97.3 83 20 121/75 95 Room Air 09/16/16 08:52 Room Air 09/16/16 04:50 Room Air 09/16/16 04:00 96.7 75 20 127/83 96 Room Air 09/16/16 03:14 96.8 09/16/16 00:00 96.8 79 20 123/77 96 Room Air 09/15/16 22:40 63 136/80 09/15/16 20:00 97.2 63 20 136/80 94 Room Air Intake and Output 09/15/16 09/16/16 19:00 07:00 Intake Total 455 ml Balance 455 ml Intake Oral 400 ml IV Total 55 ml # Voids 1 Height (Feet): 5 Height (Inches): 6.00 Weight (Pounds): 170 Objective GENERAL: Alert, awake, and oriented. HEENT: PERRLA. NECK: Range of motion is decreased due to the patient's clinical condition with tenderness to paracervical muscles. No adenopathy LUNGS: Decreased breath sounds bilaterally. HEART: Regular. ABDOMEN: Obese. BACK: Range of motion is decreased in flexion and extension with tenderness to paraspinal muscles. No tenderness to trapezius or rhomboid muscles. EXTREMITIES: No cyanosis. There is severe edema noted in bilateral lower extremities. Necrotic wound noted on the right jackson with bandages applied and tenderness to palpation. NERUO: No changes. Procedure: XRAY Shoulder Compl L Findings: No acute fracture, dislocation, joint space widening , lytic destruction, periosteal reaction , surrounding soft tissue swelling/foreign body/gas, or other acute changes are identified. Chronic remodeling deformity with partial absence of the distal end left clavicle, scapular acromion process. Subacromial space normal in width. Glenohumeral space grossly intact. IMPRESSION: Evidence of acute abnormality left shoulder Chronic deformity/partial absence of the left acromioclavicular joint may be posttraumatic, postsurgical, or post inflammatory. JUSTUS MALDONADO. Sep 16, 2016 17:38
--- NOTE | 2016-09-16 17:57 | Infectious Diseases Prog Note ---
Assessment/Plan Assessment/Plan ASSESSMENT: 56 y/o male with: // Chronic RLE venous stasis ulcer / cellulitis - WCx P.mirabilis, MDR-PSA - SP debridement 09/16 - h/o Wnd cx : colonization ( PSA , CoNS and Diphtheroids ) - doppler(-) DVT // Leukocytosis, mild - resolved, afebrile // ESRD / HD with RUE AVF // Isolated ALP elevation - GGT WNL // Chronic pain syndrome, on methadone // h/o MRSA, VRE colonization // NKDA // Full Code PLAN: - DC planning for IV Vanco + tobramycin dosed with HD x10 more days ( ABX d # 3 / ) ( 08/15 SP IV vancomycin, cefepime d # 1 ) - f/u cultures - monitor CBC, temperatures - monitor BMP - wound care Subjective Allergies: Coded Allergies: No Known Allergies (Unverified , 08/31/15) Subjective remains afebrile, leukocytosis resolved WCx P.mirabilis, MDR-PSA Objective Vital Signs Last 24 Hour Vital Signs Date Time Temp Pulse Resp B/P Pulse Ox O2 Delivery O2 Flow Rate FiO2 09/16/16 16:07 97.0 95 20 131/79 95 Room Air 09/16/16 12:56 97.3 101 20 138/84 99 Room Air 09/16/16 09:35 83 121/75 09/16/16 09:35 121/75 09/16/16 09:35 121/75 09/16/16 08:55 97.3 83 20 121/75 95 Room Air 09/16/16 08:52 Room Air 09/16/16 04:50 Room Air 09/16/16 04:00 96.7 75 20 127/83 96 Room Air 09/16/16 03:14 96.8 09/16/16 00:00 96.8 79 20 123/77 96 Room Air 09/15/16 22:40 63 136/80 09/15/16 20:00 97.2 63 20 136/80 94 Room Air Height (Feet): 5 Height (Inches): 6.00 Weight (Pounds): 170 General Appearance: no acute distress Respiratory/Chest: no respiratory distress Cardiovascular: normal rate, regular rhythm Abdomen: normal bowel sounds, soft, non tender, non distended Extremities: other - wound bandaged Current Medications Medications (Trade) Dose Ordered Sig/Hilary Route PRN Reason Start Time Stop Time Status Last Admin Dose Admin Acetaminophen (Tylenol) 650 mg Q4H PRN ORAL fever 09/11/16 15:30 10/11/16 15:29 Acetaminophen (Tylenol) 650 mg Q4H PRN ORAL Mild Pain (Pain Scale 1-3) 09/12/16 14:15 10/12/16 14:14 Acetaminophen/ Hydrocodone Bitart ([place] 7.5/325) 1 ea Q4H PRN ORAL For Pain moderate 4-6 09/12/16 14:15 09/19/16 14:14 09/14/16 11:11 Aspirin (Ecotrin) 81 mg DAILY ORAL 09/12/16 09:00 10/12/16 08:59 09/16/16 09:14 Atorvastatin Calcium (Lipitor) 80 mg QHS ORAL 09/12/16 21:00 10/12/16 20:59 09/15/16 22:41 Cefepime HCl/ Dextrose (Maxipime/D5W) 55 ml @ 110 mls/hr Q24H IV 09/11/16 23:00 09/18/16 22:59 09/15/16 22:40 Cinacalcet (Sensipar) 30 mg DAILY ORAL 09/12/16 09:00 10/12/16 08:59 09/16/16 09:14 Clonidine HCl (Catapres) 0.1 mg Q4H PRN GT For High Blood Pressure> 160 09/12/16 15:00 10/12/16 14:59 Diphenhydramine HCl (Benadryl) 50 mg Q6HR PRN IVP Itching 09/11/16 15:30 10/11/16 15:29 09/15/16 22:41 Docusate Sodium (Colace) 100 mg TID ORAL 09/12/16 18:00 10/12/16 17:59 09/14/16 09:52 Heparin Sodium (Porcine) (Heparin 5000 units/ml) 5,000 units EVERY 12 HOURS SUBQ 09/11/16 22:00 10/11/16 21:59 09/16/16 09:29 Hydromorphone HCl (Dilaudid) 2 mg Q4H PRN IV severe pain 7-10 09/11/16 15:30 09/18/16 15:29 09/16/16 13:07 Isosorbide Mononitrate (Imdur) 30 mg DAILY ORAL 09/13/16 09:00 10/13/16 08:59 09/15/16 09:13 Labetalol HCl (Normodyne) 200 mg EVERY 12 HOURS GT 09/12/16 21:00 10/12/16 20:59 09/15/16 22:40 Losartan Potassium (Cozaar) 50 mg DAILY ORAL 09/12/16 09:00 10/12/16 08:59 09/15/16 09:14 Methadone HCl 10 mg 10 mg BID ORAL 09/11/16 21:00 09/18/16 20:59 09/16/16 10:40 Nitroglycerin (Ntg) 0.4 mg Q 5 MINS PRN SL Prn Chest Pain 09/11/16 15:30 10/11/16 15:29 Ondansetron HCl (Zofran) 4 mg Q6H PRN IVP Nausea & Vomiting 09/11/16 15:30 10/11/16 15:29 Pantoprazole (Protonix) 40 mg BID ORAL 09/12/16 18:00 10/12/16 17:59 09/16/16 09:14 Polyethylene Glycol (Miralax) 17 gm DAILYPRN PRN ORAL Constipation 09/11/16 15:30 10/11/16 15:29 Sertraline HCl (Zoloft) 100 mg DAILY ORAL 09/14/16 09:00 10/14/16 08:59 09/16/16 09:18 Sevelamer Carbonate (Renvela) 3,200 mg THREE TIMES A DAY ORAL 09/12/16 18:00 10/12/16 17:59 09/16/16 13:08 Temazepam (Restoril) 15 mg HSPRN PRN ORAL Insomnia 09/11/16 15:30 09/18/16 15:29 09/15/16 22:41 Vancomycin HCl (Vanco rx to dose) 1 ea DAILY PRN MISC Per rx protocol 09/12/16 21:30 10/12/16 21:29 TANYA WALSH Sep 16, 2016 17:57
[2016-09-16 19:55] VITALS: BP 142/87
--- NOTE | 2016-09-16 22:00 | Progress Note ---
SUBJECTIVE: The patient is stable at baseline. No behavior issues. However, still presents with decreased energy, hopelessness and helplessness. Positive for anxiety. Compliant with medication. MENTAL STATUS EXAMINATION: The patient is alert and oriented x3. Mood is dysphoric. Affect is constricted. Congruent mood. Thought process is concrete. Thought content, there is no suicidal or homicidal ideation. ASSESSMENT: Mood disorder. PLAN: 1. The patient will be continued on Zoloft 100 mg by mouth every morning. 2. We will continue to follow. 3. Provided with supportive therapy and reality orientation. Danielle Yu M.D. DR: FENG JOB#: [id number] CC:
--- NOTE | 2016-09-17 08:31 | Cardiology Report ---
APPROVED REPORT EXAM: Two-dimensional and M-mode echocardiogram with Doppler and color Doppler. INDICATION Congestive Heart Failure M-Mode DIMENSIONS IVSd1.3 (0.7-1.1cm)Left Atrium (MM)4.6 (1.6-4.0cm) LVDd4.9 (3.5-5.6cm)Aortic Root3.2 (2.0-3.7cm) PWd1.3 (0.7-1.1cm)Aortic Cusp Exc.2.5 (1.5-2.0cm) LVDs2.9 (2.5-4.0cm) PWs1.9 cm Technically difficult study due to patient position. Study quality precludes accurate assessment of regional wall motion. Normal left ventricular chamber size, systolic function and wall motion. Left ventricular ejection fraction estimated to be 55 %. Mild left ventricular hypertrophy. No evidence of pericardial fat or effusion. Mild bi-atrial enlargement. Right ventricular chamber size is within normal limits. Mild focal aortic valve sclerosis with adequate cusp excursion. Mildly thickened mitral valve leaflets with normal excursion. Mild mitral annulus and aortic root calcification. Normal pulmonic valve structure. Normal tricuspid valve structure. IVC dilated at 2.1 cm with physiologic collapse. A color flow and spectral Doppler study was performed and revealed: Trace aortic regurgitation. Mild mitral regurgitation. Mitral diastolic velocities suggest reduced left ventricular relaxation (Grade I). Trace tricuspid regurgitation. Tricuspid systolic velocities suggests peak right ventricular systolic pressure of 46 mmHg, consistent with moderate pulmonary hypertension. Trace pulmonic regurgitation present.
--- NOTE | 2016-09-17 14:04 | Discharge Summary ---
Discharge Summary Hospital Course Date of Admission Sep 11, 2016 at 16:17 Date of Discharge Sep 16, 2016 at 22:57 Admitting Diagnosis necrotic ulcer on right leg SUSANNA Becerril is a 56 year old male who was admitted on Sep 11, 2016 at 16:17 for Necrotic Ulcer On Right Leg Hospital Course dc summary #[id number] Discharge Medications New Medications: Cefepime Hcl/D5w (Cefepime-Dextrose 1 Gm/50 Ml) 1 Gm/50 Ml Piggyback 1 GM IVPB Q24H for 12 Days, BAG Vancomycin Hcl/D5w (Vancomycin-D5w 1 G/250 Ml) 1 Gm/250 Ml Plast..bag 1 GM IVPB Q24H for 12 Days, BAG Continued Medications: Acetaminophen* (Acetaminophen 325MG Tablet*) 325 Mg Tablet 650 MG ORAL Q4H PRN for Mild Pain (Pain Scale 1-3) Aspirin (Aspirin EC) 81 Mg Tablet.dr 81 MG ORAL DAILY, TAB Atorvastatin Calcium* (Lipitor*) 80 Mg Tablet 80 MG ORAL DAILY, TAB Cinacalcet* (Sensipar*) 30 Mg Tablet 30 MG ORAL DAILY, TAB Gabapentin* (Gabapentin*) 100 Mg Capsule 100 MG ORAL DAILY, CAP Hydrocodone Bit/Acetaminophen 10-325* ([place] 10-325*) 1 Each Tablet 1 TAB ORAL Q6H PRN for For Pain, #10 TAB 0 Refills PRN PAIN Isosorbide Mononitrate (Isosorbide Mononitrate Er) 30 Mg Tab.er.24h 30 MG PO DAILY Labetalol Hcl* (Normodyne*) 200 Mg Tablet 200 MG ORAL EVERY 12 HOURS for For High Blood Pressure Methadone Hcl* (Methadone*) 5 Mg Tablet 10 MG PO BID PRN for Moderate Pain (Pain Scale 4-6), #10 TAB 0 Refills Nifedipine Er* (Nifedipine Er*) 90 Mg Tab.er.24 90 MG ORAL DAILY Sertraline Hcl* (Zoloft*) 50 Mg Tablet 50 MG ORAL DAILY Sevelamer Carbonate (Renvela) 800 Mg Tablet 3200 MG ORAL THREE TIMES A DAY Valsartan (Diovan) 320 Mg Tablet 320 MG ORAL DAILY for For High Blood Pressure Vitamin B Cmplx/Vit C/Folic AC (Nephro-Ruby Tablet) 0.8 Mg Tablet 1 TAB ORAL DAILY, #30 TAB 0 Refills Zinc Sulfate (Zinc Sulfate*) 220 Mg Capsule 220 MG ORAL DAILY, 0 Refills Discharge Condition Upon Discharge: stable Discharge Disposition Patient was discharged to [facility] (04) Discharge Diagnoses: Discharge Instructions Discharge Instructions Special Instructions I have been assigned to complete a D/C Summary on this account. I was not involved in the patient management Nadiya Daniels NP ([place]) Sep 17, 2016 14:04
--- NOTE | 2016-09-18 03:30 | Discharge Summary 2 SIG ---
DATE OF ADMISSION: 09/11/2016 DATE OF DISCHARGE: 09/16/2016 REASON FOR ADMISSION: 56-year-old male presented to the emergency department with worsening of chronic venous stasis ulcer on the right leg. Ulcer started about three months ago, started as a small blister and now covered almost the entire posterior calf. The patient with history of end-stage renal disease, on hemodialysis and has history of hypertension, which ultimately damaged his kidneys. The patient reported right leg pain 10/10 on a scale 1 to 10. Bilateral lower extremities edema, which was chronic according to the patient. The patient denied trauma or fall. The patient stated the wound care with debridement was done in the nursing facility, but he was sent to emergency department for evaluation with suspicion that he may have to have his leg amputated. The patient denied cough, chills, fever, abdominal pain, or rashes. No chest pain. No shortness of breath. Workup in the emergency room revealed low blood pressure - 85/55, 500 mL bolus provided. WBC was elevated - 12.7. The patient was anemic hemoglobin- 9.2, hematocrit - 28.3. BUN - 40 and creatinine -5.5 consistent with end-stage renal disease. Lactic acid - 1.8. The patient started on empiric antibiotics. Surgeon consult was requested. Surgeon performed at the bedside debridement of right lower extremity ulcer necrotic tissue. The patient admitted for IV antibiotics. ADMITTING DIAGNOSES: 1. Chronic venous ulcer, right lower leg. 2. Cellulitis, right lower extremity. 3. End-stage renal disease, on hemodialysis. 4. Status post debridement of right lower extremity ulcer necrotic tissue. HOSPITAL STAY: The patient admitted. The patient was initially on empiric antibiotics. Infectious Disease consulted. Wound culture was positive for Pseudomonas and Proteus. Blood culture were negative. Chest x-ray revealed cardiomegaly, but no acute process. Pulse oximetry stable on room air. Nephrology consult was requested for dialysis. Renal parameters and electrolytes were closely monitored. Nephrotoxics were avoided. Echocardiogram revealed ejection fraction of 55%. Right ventricular systolic pressure of 46 consistent with moderate pulmonary hypertension. Blood pressure was managed with ARB dona and was stable and beta-dona. The patient had chronic pain in multiple joints due to the arthritis and also peripheral vascular disease. SNF medications were continued. Pain specialist was consulted for pain management. Pain was controlled with existing pain management. Wound care provided as per surgeon's recommendation. Psychiatrist seen the patient for evaluation of his mood disorder, started the patient on Zoloft, and provided supportive treatment and reality orientation. Leukocytosis resolved, afebrile. The patient was stable for transfer to snf facility for IV antibiotics. FINAL DIAGNOSES: 1. Chronic venous ulcer, right lower leg. 2. Cellulitis, right lower leg. 3. End-stage renal disease, on hemodialysis. 4. Status post debridement of the right lower extremity ulcer necrotic tissue. 5. Hypertension. 6. Chronic pain syndrome. 7. Multiple joint arthritis. 8. Peripheral vascular disease. 9. Mood disorder. DISCHARGE MEDICATIONS: See medication reconciliation list. DISCHARGE INSTRUCTIONS: The patient discharged to snf facility. FOLLOWUP: Follow up with medical doctor at the facility. Jeremi Henderson M.D. I have been assigned to dictate discharge summary on this account and I was not involved in the patient's management. Nadiya Anthonydavid NPrasad DR: Hammad JOB#: [id number] CC: SANDY
--- NOTE | 2016-09-20 19:14 | Cardiology Report ---
APPROVED REPORT EKG Measurement Heart [id number] Normal sinus rhythm Possible Left atrial enlargement Possible Inferior infarct, age undetermined Cannot rule out Anterior infarct, age undetermined Abnormal ECG
== END 2016-09-16 22:57 | DRG 197 ==
LOC: EDBD 14:19 → EMR 15:40 → 4W 16:17 → EDBEDREQ 20:26 → 4W 09-14 19:27
PROC: 0JBN0ZZ Excision of Right Lower Leg Subcutaneous Tissue and Fascia, Open Approach (ICD-10-PCS; principal; 2016-09-13)
PROC: 5A1D60Z (ICD-10-PCS; 2016-09-13)
DX: I83.012 Varicose veins of right lower extremity with ulcer of calf (principal); I96 Gangrene, not elsewhere classified; I12.0 Hypertensive chronic kidney disease with stage 5 chronic kidney disease or end stage renal disease; N18.6 End stage renal disease; I27.2 Other secondary pulmonary hypertension; L03.115 Cellulitis of right lower limb; F03.90 Unspecified dementia, unspecified severity, without behavioral disturbance, psychotic disturbance, mood disturbance, and anxiety; I10 Essential (primary) hypertension; Z99.2 Dependence on renal dialysis; I73.9 Peripheral vascular disease, unspecified; I48.91 Unspecified atrial fibrillation; Z86.718 Personal history of other venous thrombosis and embolism; B96.5 Pseudomonas (aeruginosa) (mallei) (pseudomallei) as the cause of diseases classified elsewhere; B96.4 Proteus (mirabilis) (morganii) as the cause of diseases classified elsewhere; M19.90 Unspecified osteoarthritis, unspecified site; G89.4 Chronic pain syndrome; F39 Unspecified mood [affective] disorder; K21.9 Gastro-esophageal reflux disease without esophagitis; F11.90 Opioid use, unspecified, uncomplicated; I89.0 Lymphedema, not elsewhere classified; M25.512 Pain in left shoulder
CPT/HCPCS: 36415; 71010; 80053; 80061; 80202; 82550; 82607; 82962; 82977; 83036; 83605; 83735; 83880; 84100; 84443; 84550; 85025; 86140; 87040; 87070; 87181; 87205; 93005; 93306; 93970; J1815